=== PATIENT | male | born 1985 | race Caucasian/White ===

== ENCOUNTER 2017-06-23 05:47 | Day surgery (SDC) | payer OTHER ==
[~2017-06-23] VITALS: Ht 172.7 cm; Wt 88.8 kg
[2017-06-23 07:13] VITALS: Ht 172.7 cm; Wt 88.8 kg
[2017-06-23] MEDS ORDERED: HYDROCHLOROTHIAZIDE (07:16)
[2017-06-23] MEDS ORDERED: ZANTAC (07:16)
[2017-06-23] MEDS ORDERED: LISINOPRIL (07:16)
[2017-06-23 07:25] VITALS: BP 136/98; PULSE 84; RESP 19
--- NOTE | 2017-06-23 07:43 | OPPN ---
Date/Time of Note Date/Time of Note DATE: 06/23/17 TIME: 07:42 Operative Report Preoperative Diagnosis Abdominal pain Chronic heartburn Postoperative Diagnosis Gastroesophageal reflux disease Gastritis Residual food in the stomach making the exam inadequate Operation/Procedure Performed Esophagogastroduodenoscopy and biopsy Surgeon see signature line assistant shift supervisor None Anesthesia: moderate sedation Estimated blood loss: none Transfusion Required none Specimen Gastric mucosal biopsy Grafts/Implants none Complications none ALFREDITO GOODMAN MD Jun 23, 2017 07:43
[2017-06-23] MEDS ORDERED: FENTAnyl 50 MCG/ML VIAL ONE (07:52)
[2017-06-23] MEDS ORDERED: MIDAZOLAM 1 MG/ML 2 ML INJ ONE (07:52)
[2017-06-23 08:01] VITALS: BP 129/77; RESP 20
--- NOTE | 2017-06-23 11:15 | GILP ---
DATE OF PROCEDURE: NAME OF PROCEDURES: Esophagogastroduodenoscopy and biopsy. SURGEON: Kathryn Villalta MD PREOPERATIVE DIAGNOSES: 1. Abdominal pain. 2. Chronic heartburn. POSTOPERATIVE DIAGNOSES: 1. Gastroesophageal reflux disease. 2. Gastritis. 3. Residual food in the stomach, making the exam inadequate. 4. Gastric mucosal biopsies were taken for Helicobacter pylori test. INDICATION FOR THE PROCEDURE: Mr. Philip Grady is a 31-year-old male patient who had upper abdomin al pain and chronic heartburn, not responding to therapy, so the patient was scheduled for endoscopi c examination for further evaluation. The procedure and possible complications are well explained to the patient, he understood and consen ben to the procedure. DESCRIPTION OF PROCEDURE: Under the influence of fentanyl and Versed, the gastroscope was carefully introduced into the esophagus and under direct vision, it was advanced to the stomach. FINDINGS: ESOPHAGUS: The patient had gastroesophageal reflux disease. STOMACH: He had gastritis. The patient had residual food in the stomach, making the exam very inad equate. Gastric mucosal biopsies were taken for H. pylori test. Because of residual food in the st omach, the scope was not advanced into the duodenum. He tolerated the procedure very well and there was no complication from the procedure. At the end o f the procedures, he was awake with stable vital signs and he was discharged home to the care of his family. IMPRESSION: 1. Gastroesophageal reflux disease. 2. Gastritis. 3. Gastric mucosal biopsies were taken for Helicobacter pylori test. 4. Residual food in the stomach, making the exam very inadequate. PLAN: 1. Omeprazole 40 mg p.o. in the morning. 2. Await H. pylori test report. 3. The patient will need repeat endoscopy with fasting. Dictated By: KATHRYN MITCHELL/SERGIO Conf#: [id number] DID#: [id number]
--- NOTE | 2017-06-25 07:46 | CONS ---
DATE OF ADMISSION: DATE OF CONSULTATION: HISTORY OF PRESENT ILLNESS: I thank you very much for this kind referral. Mr. Heaven Alonso is a 31-year-old male patient who has been referred to me for further evaluation of upper abdominal pain and chronic heartburn not responding to therapy with Zantac. PAST MEDICAL HISTORY: There is no past history of peptic ulcer disease. Patient never had endoscopic examination in the past. He is not any nonsteroidal anti-inflammatory agents. There is no history of gallstones or liver disease. Patient had abdominal ultrasound and CT scan done and according to him, they were normal. There is no history of inflammatory bowel disease. He is hypertensive, not diabetic. No heart disease or lung problem. No kidney disease. He has history of hyperlipidemia. SOCIAL HISTORY: Nonsmoker. No alcohol abuse. FAMILY HISTORY: No family history of gastrointestinal tract neoplasm. ALLERGIES: NO DRUG ALLERGIES. MEDICATION: 1. Zantac. 2. Hydrochlorothiazide. 3. Lisinopril. PHYSICAL EXAMINATION: VITAL SIGNS: He is 5 feet 8 inches tall, weighs 193 pounds. CARDIAC: Normal heart sounds. LUNGS: Clear. ABDOMEN: Soft. No masses. Normal bowel sounds. NEUROLOGIC: Normal neurological exam. IMPRESSION: 1. Upper abdominal pain and chronic heartburn not responding to therapy. 2. Hypertension. 3. Hyperlipidemia. 4. According to the patient, he had abdominal CT scan and ultrasound done and they were normal. PLAN: Endoscopic examination for further evaluation. The procedure and possible complications were well explained to the patient. He understands and consents to the procedure. I thank you once again. With warmest personal regards, Patient Name: HEAVEN ALONSO Dictated By: MD PAULA Hilton/arlin/luis /Document#: [id number]
== END 2017-06-23 11:17 | disposition home or self-care (01) ==
LOC: GIL 05:47
PROVIDERS: ATTEND Internal Medicine Gastroenterology
DX: R10.10 Upper abdominal pain, unspecified (principal); K21.9 Gastro-esophageal reflux disease without esophagitis; I10 Essential (primary) hypertension; E78.5 Hyperlipidemia, unspecified; K29.70 Gastritis, unspecified, without bleeding
CPT/HCPCS: 87081; J2250; J3010

== ENCOUNTER 2017-07-01 11:51 | Day surgery (SDC) | payer OTHER ==
[~2017-07-01] VITALS: Ht 172.7 cm; Wt 86.6 kg
[~2017-07-01 11:51] MED LIST: HYDROCHLOROTHIAZIDE; LISINOPRIL; ZANTAC
[2017-07-01 13:01] VITALS: Ht 172.7 cm; Wt 86.6 kg
[2017-07-01 13:28] VITALS: BP 130/79; PULSE 73; RESP 11
[2017-07-01] MEDS ORDERED: MIDAZOLAM 1 MG/ML 2 ML INJ ONE ×2 (13:48)
[2017-07-01] MEDS ORDERED: FENTAnyl 50 MCG/ML VIAL ONE (13:48)
--- NOTE | 2017-07-01 13:49 | OPPN ---
Date/Time of Note Date/Time of Note DATE: 07/01/17 TIME: 13:48 Operative Report Preoperative Diagnosis Abdominal pain Chronic heartburn Postoperative Diagnosis Hiatal hernia Gastroesophageal reflux disease Gastritis with erosions Operation/Procedure Performed Esophagogastroduodenoscopy and biopsy Surgeon see signature line surgeon assistant None Anesthesia: moderate sedation Estimated blood loss: none Transfusion Required none Specimen Gastric mucosal biopsy Grafts/Implants none Complications none ALFREDITO GOODMAN MD Jul 01, 2017 13:49
--- NOTE | 2017-07-01 13:49 | OPPN ---
Date/Time of Note Date/Time of Note DATE: 07/01/17 TIME: 13:48 Operative Report Preoperative Diagnosis Abdominal pain Chronic heartburn Postoperative Diagnosis Hiatal hernia Gastroesophageal reflux disease Gastritis with erosions Operation/Procedure Performed Esophagogastroduodenoscopy and biopsy Surgeon see signature line assistant refinery operator None Anesthesia: moderate sedation Estimated blood loss: none Transfusion Required none Specimen Gastric mucosal biopsy Grafts/Implants none Complications none ALFREDITO GOODMAN MD Jul 01, 2017 13:49
--- NOTE | 2017-07-01 13:49 | OPPN ---
Date/Time of Note Date/Time of Note DATE: 07/01/17 TIME: 13:48 Operative Report Preoperative Diagnosis Abdominal pain Chronic heartburn Postoperative Diagnosis Hiatal hernia Gastroesophageal reflux disease Gastritis with erosions Operation/Procedure Performed Esophagogastroduodenoscopy and biopsy Surgeon see signature line patient services assistant None Anesthesia: moderate sedation Estimated blood loss: none Transfusion Required none Specimen Gastric mucosal biopsy Grafts/Implants none Complications none ALFREDITO GOODMAN MD Jul 01, 2017 13:49
[2017-07-01 14:12] VITALS: BP 130/70; RESP 14
--- NOTE | 2017-07-02 08:39 | GILP ---
DATE OF PROCEDURE: NAME OF PROCEDURES: Esophagogastroduodenoscopy and biopsy. SURGEON: Alfredito Villalta MD. PREOPERATIVE DIAGNOSES: 1. Abdominal pain. 2. Chronic heartburn. POSTOPERATIVE DIAGNOSES: 1. Hiatal hernia. 2. Gastroesophageal reflux disease. 3. Gastritis with erosions. 4. Gastric mucosal biopsies were taken for Helicobacter pylori test. INDICATION FOR THE PROCEDURE: Mr. Philip Grady is a 31-year-old male patient who had upper abdomin al pain and chronic heartburn not responding to therapy. The patient was scheduled for endoscopic e xamination for further evaluation. The procedure and possible complications were well explained to the patient. He understood and cons ented to the procedure. DESCRIPTION OF PROCEDURE: Under the influence of fentanyl and Versed, the gastroscope was carefully introduced into the esophagus, and under direct vision, it was advanced to the stomach and through the pylorus into the duodenal bulb and descending duodenum. FINDINGS: ESOPHAGUS: The patient had hiatal hernia and gastroesophageal reflux disease. STOMACH: He had gastritis with erosions. Gastric mucosal biopsies were taken for H. pylori test. DUODENUM: Normal. He tolerated the procedure very well and there was no complication from the procedure. At the end o f the procedure, he was awake with stable vital signs and he was discharged home to the care of his family. IMPRESSION: Please see postoperative diagnoses. PLAN: 1. Omeprazole 40 mg p.o. q.a.m. 2. Await H. pylori test report. Dictated By: ALFREDITO MITCHELL/SERGIO Conf#: [id number] DID#: [id number]
== END 2017-07-01 15:52 | disposition home or self-care (01) ==
LOC: GIL 11:51
PROVIDERS: ATTEND Internal Medicine Gastroenterology
DX: R12 Heartburn (principal); K21.9 Gastro-esophageal reflux disease without esophagitis; K29.60 Other gastritis without bleeding; K44.9 Diaphragmatic hernia without obstruction or gangrene; I10 Essential (primary) hypertension; E78.5 Hyperlipidemia, unspecified
CPT/HCPCS: 43239; 87081; J2250; J3010; Z7610

== ENCOUNTER 2017-08-04 10:48 | Day surgery (SDC) | payer OTHER ==
[2017-08-03 15:21] VITALS: BMI 29.7
[2017-08-04] VITALS (15 sets, daily range): BP systolic 127–153; BP diastolic 67–103; PULSE 70–96; RESP 16–21; Ht 172.7 cm; Wt 87.5 kg
[~2017-08-04] VITALS: Ht 172.7 cm; Wt 87.5 kg
[2017-08-04] MEDS ORDERED: FLUT1AER INHALATION (11:08)
[2017-08-04] MEDS ORDERED: RANI150T5 PO (11:09)
[2017-08-04] MEDS ORDERED: OMEG1CAP2 PO (11:10)
[2017-08-04] MEDS ORDERED: HYDR25TA6 PO (11:11)
[2017-08-04] MEDS ORDERED: LISI-313 PO (11:11)
[2017-08-04] MEDS ORDERED: OMEP40CA6 PO (11:12)
--- NOTE | 2017-08-04 12:23 | HPN ---
Date/Time of Note Date/Time of Note DATE: 08/04/17 TIME: 12:22 Interval H&P Admission Note Pt. seen H&P reviewed: No system changes ARCHIE SHEPHERD MD Aug 04, 2017 12:23
[2017-08-04] MEDS ORDERED: LIDOCAINE 1%/EPI 30 ML INJ ONE (12:24)
[2017-08-04] MEDS ORDERED: COCAINE 4% 4 ML TOP ONE ×2 (12:25→12:52)
[2017-08-04] MEDS ORDERED: ROCURONIUM 50 MG INJ ONE (12:37)
[2017-08-04] MEDS ORDERED: PROPOFOL 20 ML ONE (12:37)
[2017-08-04] MEDS ORDERED: METOCLOPRAMIDE 10 MG INJ ONE (12:38)
[2017-08-04] MEDS ORDERED: MIDAZOLAM 1 MG/ML 2 ML INJ ONE (12:38)
[2017-08-04] MEDS ORDERED: FENTAnyl 50 MCG/ML VIAL ONE (12:38)
[2017-08-04] MEDS ORDERED: ONDANSETRON 4 MG INJ ONE (12:38)
[2017-08-04] MEDS ORDERED: DIPHENHYDRAMINE 50 MG INJ IV PRN (13:00)
[2017-08-04] MEDS ORDERED: MEPERIDINE 25 MG INJ IV PRN (13:00)
[2017-08-04] MEDS ORDERED: ONDANSETRON 4 MG INJ IV PRN (13:00)
[2017-08-04] MEDS ORDERED: METOCLOPRAMIDE 10 MG INJ IV PRN (13:00)
[2017-08-04] MEDS ORDERED: HYDROmorphONE (0.2 MG/ML) 10ML SYG IV PRN ×2 (13:00)
[2017-08-04] MEDS ORDERED: OXYCODONE/ACETAMINOPHEN (5/325) TAB PO PRN ×2 (13:00)
[2017-08-04] MEDS ORDERED: BACITRACIN/POLYMYXIN 28.35 GM OINT TOP ONE (13:02)
[2017-08-04] MEDS ORDERED: NEOSTIGMINE 3 MG/3 ML SYRINGE ONE (13:04)
[2017-08-04] MEDS ORDERED: GLYCOPYRROLATE 1 MG INJ ONE (13:04)
--- NOTE | 2017-08-04 13:15 | OPR ---
Date/Time of Note Date/Time of Note DATE: 08/04/17 TIME: 13:13 Operative Report Procedure Date: Aug 04, 2017 Preoperative Diagnosis Epistaxis, deviated nasal septum. Postoperative Diagnosis Same Operation/Procedure Performed Septoplasty Surgeon Archie Laura Flight Line Service Attendant None Anesthesia Type: general Estimated Blood Loss: 10 - 50 ml's Transfusion none Specimen None Grafts/Implants none Complications none Pt Condition Post Procedure: stable Disposition: PACU Indications Recurrent bleeding. Procedure Description Description of procedure: The patient was identified in the holding area. We had a discussion to confirm understanding of all indications risks benefits alternatives and postoperative care associated with the operation. The patient signed informed consent was taken to the operating room. The patient was laid supine on the operating room table and general anesthesia was achieved without difficulty. The face was draped in sterile fashion and the nose was packed with 4% cocaine pledgets. The nasal septum was infiltrated with 5 cc of 1% lidocaine with epinephrine in the submucoperiosteal plane bilaterally. A left sided Jimmy incision was made and submucoperichondreal flaps were raised. The bony cartilaginous junction of the septum was identified and entered. A deviated segments of bone and cartilage were isolated. A double- action scissor was used to transect the bony deviated segment of the skull base after which a Nano forcep was used to resect deviated segment of bone and cartilage. Care was taken to avoid excess cartilaginous resection. The flaps were returned to normal position and anterior rhinoscopy reveals midline septum. At this point the right inferior turbinate was medialized with a [place] elevator. Septal flaps were secured with a 40 fast-absorbing gut whip stitch. The patient was awakened, extubated and taken to the PACU in stable condition. Complications: None. ARCHIE LAURA MD Aug 04, 2017 13:15
[2017-08-04] MEDS ORDERED: FAMOTIDINE 20 MG TAB ONE (13:25)
[2017-08-04] MEDS: HYDROmorphONE (0.2 MG/ML) 10ML SYG IV PRN ×3 (13:28→15:38)
[2017-08-04] MEDS ORDERED: FAMOTIDINE 20 MG TAB PO SCH (13:30)
[2017-08-04] MEDS ORDERED: HYDROCODONE/APAP (5/325) TAB PO PRN (13:30)
== END 2017-08-04 17:43 | disposition home or self-care (01) ==
LOC: SDS 10:48
PROVIDERS: ATTEND Otolaryngology
DX: J34.2 Deviated nasal septum (principal); I10 Essential (primary) hypertension; E78.5 Hyperlipidemia, unspecified
CPT/HCPCS: 30520; J1170; J2250; J2405; J2710; J2765; J3010; Z7512; Z7610

== ENCOUNTER 2017-08-04 17:51 | Inpatient (IN) | payer OTHER ==
[~2017-08-04] VITALS: Ht 172.7 cm; Wt 80.0 kg
[~2017-08-04 17:51] MED LIST changes: +FLUT1AER INHALATION; +HYDR25TA6 PO; +LISI-313 PO; +OMEG1CAP2 PO; +OMEP40CA6 PO; +RANI150T5 PO
[2017-08-04 18:29] LABS: BASOPHIL # 0.1 10^3/ul (0.0-0.1); BASOPHILS % 0.4 % (0.0-2.0); EOSINOPHILS % 0.1 % (0.0-7.0); HEMATOCRIT 43.5 % (42.0-52.0); HEMOGLOBIN 14.4 g/dl (14.0-18.0); LYMPHOCYTES # 1.6 10^3/ul (0.8-2.9); LYMPHOCYTES % 10.7 % (15.0-51.0); MEAN CORPUSCULAR HEMOGLOBIN 27.2 pg (29.0-33.0); MEAN CORPUSCULAR HGB CONC 33.1 g/dl (32.0-37.0); MEAN CORPUSCULAR VOLUME 82.2 fl (82.0-101.0); MEAN PLATELET VOLUME 9.8 fl (7.4-10.4); MONOCYTE # 0.9 10^3/ul (0.3-0.9); MONOCYTES % 6.1 % (0.0-11.0); NEUTROPHIL # 12.6 10^3/ul (1.6-7.5); PLATELET COUNT 217 10^3/UL (140-415); RED BLOOD COUNT 5.29 10^6/ul (4.70-6.10); RED CELL DISTRIBUTION WIDTH 12.9 % (11.5-14.5); WHITE BLOOD COUNT 15.4 10^3/ul (4.8-10.8)
[2017-08-04] MEDS ORDERED: HYDROmorphONE 1 MG/ML SYG IV STA ×2 (18:39→21:00)
[2017-08-04] MEDS ORDERED: ONDANSETRON 4 MG INJ IV STA (18:43)
[2017-08-04 18:47] LABS: CALCIUM 9.4 mg/dl (8.4-10.2); CREATININE 0.62 mg/dl (0.61-1.24); POTASSIUM 4.1 mmol/L (3.5-5.1)
--- NOTE | 2017-08-04 18:50 | RADRPT ---
PROCEDURE: CT Abdomen and Pelvis without contrast. CLINICAL INDICATION: Left lower quadrant abdominal pain. TECHNIQUE: CT scan of the abdomen and pelvis with contrast was performed on a multi-detector high- resolution CT scanner. Coronal and sagittal reformatted images were obtained from the axial source images. Images were reviewed on a high-resolution PACS workstation. The total exam CTDI equals 12.8 mGy and the total exam DLP equals 789.8 mGy-cm. DICOM images are available. One or more of the following dose reduction techniques were utilized: - Automated exposure control - Adjustment of the mA and/or kV according to patient size - Use of iterative reconstruction technique COMPARISON: None. FINDINGS: Lower Chest: There is no basilar consolidation or effusion. Mild bilateral subsegmental atelectasis in the lungs. The heart is within normal limits in size. Hepatobiliary: There is diffuse fatty infiltration of the liver. No focal hepatic lesions are identi fied. The gallbladder is present. There is no intrahepatic or extrahepatic biliary dilatation. Spleen: Unremarkable. Pancreas: There are inflammatory changes surrounding the tail of the pancreas. No pseudocyst is visu alized. Evaluation for necrosis is limited without intravenous contrast. There are adjacent mildly e nlarged lymph nodes versus splenules. Adrenal Glands: Unremarkable. Kidneys: Unremarkable. Bowel: No bowel obstruction. The bowel wall in the ascending colon appears hypodense, which may rep resent sequela of prior inflammatory disease. The appendix is unremarkable. Pelvic Organs: The prostate contains calcifications. Peritoneum/Mesentery: Unremarkable. No pathologically enlarged lymph nodes. Bones/Soft Tissues: Unremarkable. Other: N/A. IMPRESSION: 1. Inflammatory changes surrounding the tail of the pancreas consistent with pancreatitis. No pseudo cyst visualized. Evaluation for necrosis limited without intravenous contrast. 2. Hepatic steatosis. RPTAT:AAJJ Physician Tr Date Time Electronically viewed and signed by Physician Tr on 08/04/2017 18:50 QL/
[2017-08-04 20:00] LABS: ALBUMIN 4.3 g/dl (3.3-4.9); BILIRUBIN,INDIRECT 0.3 mg/dl (0-1.1); BILIRUBIN,TOTAL 0.3 mg/dl (0.2-1.3); TOTAL PROTEIN 7.6 g/dl (6.1-8.1)
[2017-08-04 20:11] VITALS: TEMP 97.8
[2017-08-04 20:47] LABS: ADD UMIC NO; UR ASCORBIC ACID NEGATIVE (NEGATIVE); UR BILIRUBIN (Dip) NEGATIVE (NEGATIVE); UR BLOOD (Dip) NEGATIVE (NEGATIVE); UR CLARITY CLEAR (CLEAR); UR COLOR YELLOW (YELLOW); UR GLUCOSE (Dip) NEGATIVE (NEGATIVE); UR KETONES (Dip) NEGATIVE (NEGATIVE); UR LEUKOCYTE ESTERASE (Dip) NEGATIVE Leu/ul (NEGATIVE); UR NITRITE (Dip) NEGATIVE (NEGATIVE); UR SPECIFIC GRAVITY (Dip) 1.019 (1.003-1.030); UR TOTAL PROTEIN (Dip) NEGATIVE (NEGATIVE); UR UROBILINOGEN (Dip) NEGATIVE (NEGATIVE)
[2017-08-04] MEDS ORDERED: DEXTROSE 5%-0.45% NACL 1,000 ML IV SCH (20:50)
[2017-08-04] MEDS ORDERED: ACETAMINOPHEN 325 MG TAB PO PRN ×2 (21:00→23:00)
[2017-08-04] MEDS ORDERED: ONDANSETRON 4 MG INJ IV PRN (21:00)
--- NOTE | 2017-08-04 22:32 | ERD ---
ER Documentation Chief Complaint Chief Complaint SENT FROM [facility] AFTER NOSE SX. PT C/O AP. HPI 32-year-old male with a history of hyperlipidemia and high cholesterol brought into the ER after he had same-day surgery for a nasal septum repair. When he woke up from his anesthesia, he had severe epigastric pain radiating to his left lower quadrant. He states the pain is a 10 out of 10, worse with inspiration, stabbing, constant. No associated vomiting but he does complain of nausea. His last bowel movement was today morning and it was normal without any blood. He denies any recent fevers or chills. No dysuria. ROS All systems reviewed and are negative except as per history of present illness. Medications Home Meds Reported Medications Omeprazole* (Omeprazole*) 40 Mg Capsule.dr, 40 MG PO DAILY, #30 CAP 08/04/17 Lisinopril* (Lisinopril*) 5 Mg Tablet, 5 MG PO DAILY, #30 TAB 08/04/17 Hydrochlorothiazide* (Hydrochlorothiazide*) 25 Mg Tab, 25 MG PO DAILY, #30 TAB 08/04/17 [place]-3 Acid Ethyl Esters (Lovaza) 1 Gm Capsule, 2 GM PO BID, CAP 08/04/17 Ranitidine Hcl* (Ranitidine Hcl*) 150 Mg Tablet, 150 MG PO Q12, #60 TAB 08/04/17 Fluticasone-Vilanterol (Breo Ellipta Inhaler) 100-25 Mcg/Actuation Aer.pow.ba, 1 PUFF INHALATION DAILY, #1 INHALER 08/04/17 Discontinued Reported Medications [Hydrochlorothiazide] No Conflict Check 06/23/17 [Lisinopril] No Conflict Check 06/23/17 [Zantac] No Conflict Check 06/23/17 Allergies Allergies: Coded Allergies: No Known Allergy (Unverified , 08/04/17) PMhx/Soc History of Surgery: Yes (LEFT MENISCUS SX) Anesthesia Reaction: No Hx Neurological Disorder: No Hx Respiratory Disorders: No Hx Cardiac Disorders: No Hx Psychiatric Problems: No Hx Miscellaneous Medical Probl: Yes (HIGH CHOLESTEROL) Hx Alcohol Use: No Hx Substance Use: No Hx Tobacco Use: No Smoking Status: Never smoker FmHx Family History: No diabetes Physical Exam Vitals Vital Signs Date Time Temp Pulse Resp B/P Pulse Ox O2 Delivery O2 Flow Rate FiO2 11/28/17 20:11 97.8 85 16 134/79 98 Room Air 08/04/17 17:55 98.4 91 16 128/64 94 Physical Exam Const: Nontoxic, no apparent distress, well-appearing Head: Atraumatic Eyes: Normal Conjunctiva ENT: Normal External Ears, Nose and Mouth. Neck: Full range of motion..~ No meningismus. Resp: Clear to auscultation bilaterally Cardio: Regular rate and rhythm, no murmurs Abd: Soft, mild left upper quadrant tenderness. Negative Robison sign. Moderate left lower quadrant tenderness. No rebound or guarding. Nondistended. Normal bowel sounds Skin: No petechiae or rashes Back: No midline or flank tenderness Ext: No cyanosis, or edema Neur: Awake and alert Psych: Normal Mood and Affect Result Diagram: 08/04/17181908/04/171819 Results 24 hrs Laboratory Tests Test 08/04/17 18:20 08/04/17 20:14 White Blood Count 15.410^3/ul Red Blood Count 5.2910^6/ul Hemoglobin 14.4g/dl Hematocrit 43.5% Mean Corpuscular Volume 82.2fl Mean Corpuscular Hemoglobin 27.2pg Mean Corpuscular Hemoglobin Concent 33.1g/dl Red Cell Distribution Width 12.9% Platelet Count 44403^3/UL Mean Platelet Volume 9.8fl Neutrophils % 82.0% Lymphocytes % 10.7% Monocytes % 6.1% Eosinophils % 0.1% Basophils % 0.4% Nucleated Red Blood Cells % 0.0/100WBC Neutrophils # 12.610^3/ul Lymphocytes # 1.610^3/ul Monocytes # 0.910^3/ul Eosinophils # 0.010^3/ul Basophils # 0.110^3/ul Nucleated Red Blood Cells # 0.010^3/ul Sodium Level 138mmol/L Potassium Level 4.1mmol/L Chloride Level 96mmol/L Carbon Dioxide Level 26mmol/L Anion Gap 20 Blood Urea Nitrogen 16mg/dl Creatinine 0.62mg/dl Glucose Level 108mg/dl Calcium Level 9.4mg/dl Total Bilirubin 0.3mg/dl Direct Bilirubin 0.00mg/dl Indirect Bilirubin 0.3mg/dl Aspartate Amino Transf (AST/SGOT) 31IU/L Alanine Aminotransferase (ALT/SGPT) 58IU/L Alkaline Phosphatase 92IU/L Total Protein 7.6g/dl Albumin 4.3g/dl Lipase 7268U/L Urine Color YELLOW Urine Clarity CLEAR Urine pH 7.0 Urine Specific [place] 1.019 Urine Ketones NEGATIVEmg/dL Urine Nitrite NEGATIVEmg/dL Urine Bilirubin NEGATIVEmg/dL Urine Urobilinogen NEGATIVEmg/dL Urine Leukocyte Esterase NEGATIVELeu/ul Urine Hemoglobin NEGATIVEmg/dL Urine Glucose NEGATIVEmg/dL Urine Total Protein NEGATIVEmg/dl Current Medications Medications (Trade) Dose Ordered Sig/Mike Route PRN Reason Start Time Stop Time Status Last Admin Dose Admin Hydromorphone HCl (Dilaudid) 1 mg ONCE STAT IV 08/04/17 18:39 08/04/17 18:40 DC 08/04/17 18:51 Ondansetron HCl 4 mg 4 mg ONCE STAT IV 08/04/17 18:43 08/04/17 18:44 DC 08/04/17 18:51 Dextrose/Sodium Chloride (D5-1/2ns) 1,000 ml @ 125 mls/hr Q8H IV 08/04/17 20:50 08/05/17 04:49 Ondansetron HCl (Zofran Inj) 4 mg BRIDGE ORDER PRN IV NAUSEA AND/OR VOMITING 08/04/17 21:00 08/04/17 22:56 DC 08/04/17 22:38 Acetaminophen (Tylenol Tab) 650 mg ER BRIDGE PRN PO MILD PAIN/FEVER 08/04/17 21:00 08/04/17 22:56 DC Hydromorphone HCl 1 mg 1 mg ONCE STAT IV 08/04/17 21:00 08/04/17 21:01 DC 08/04/17 21:11 Sodium Chloride (NS) 1,000 ml @ 200 mls/hr Q5H IV 08/04/17 22:36 IV Flush (NS 3 ml) 3 ml PER PROTOCOL IV 08/04/17 23:00 Ondansetron HCl (Zofran Inj) 4 mg Q6H PRN IV NAUSEA AND/OR VOMITING 08/04/17 23:00 Acetaminophen (Tylenol Tab) 650 mg Q6H PRN PO PAIN LEVEL 1-3 OR FEVER 08/04/17 23:00 Hydromorphone HCl (Dilaudid) 1 mg Q4H PRN IV SEVERE PAIN LEVEL 7-10 08/04/17 23:00 08/04/17 23:00 Docusate Sodium (Colace) 100 mg Q12H PRN PO CONSTIPATION 08/04/17 23:00 Bisacodyl (Dulcolax) 5 mg DAILY PRN PO CONSTIPATION 08/04/17 23:00 Pantoprazole (Protonix Iv) 40 mg DAILY@06 IV 08/05/17 06:00 Procedures/[facility] Labs CBC: leukocytosis CMP: No evidence of electrolyte abnormality, renal failure, hypoglycemia, liver failure, Or biliary obstruction Lipase: Elevated UA: no evidence of infection Imaging CT abdomen and pelvis without contrast shows evidence of acute pancreatitis with inflammation of the pancreatic tail, no other acute abnormalities noted by radiology. [facility] Patient is presenting with mostly left lower quadrant pain. His vitals are stable and he is afebrile. I have a low suspicion for acute surgical abdomen including bowel obstruction or perforation. Labs were done and were indicative of acute pancreatitis. CT also shows evidence of acute pancreatitis. I suspect this may be due to his untreated hypertriglyceridemia. I have a lower suspicion for gallstone pancreatitis. Low suspicion for aortic dissection, acute coronary syndrome, or acute pulmonary etiology. Patient was given IV fluids and multiple doses of antiemetics and analgesics IV with only mild improvement of his pain. I do not believe he is stable for discharge at this time and will require bowel rest and IV fluids until his symptoms improved. Accepting Care Team: Current data and ongoing care discussed. Time: Time of admission Primary Provider: Stephan Mukherjee Diagnosis: Primary Impression: Pancreatitis Chronicity: acute Pancreatitis type: unspecified pancreatitis type Acute pancreatitis complication: unspecified Qualified Code: K85.90 - Acute pancreatitis, unspecified complication status, unspecified pancreatitis type Condition: CHICO Martinez MD Aug 04, 2017 22:32
[2017-08-04] MEDS ORDERED: DOCUSATE SODIUM 100 MG CAP PO PRN (23:00)
[2017-08-04] MEDS ORDERED: NACL 0.9% 3 ML SYG IV SCH (23:00)
[2017-08-04] MEDS ORDERED: BISACODYL (EC) 5 MG TAB PO PRN (23:00)
[2017-08-04] MEDS ORDERED: HYDROmorphONE 1 MG/ML SYG IV PRN (23:00)
[2017-08-04] MEDS: SOD CHLORIDE 0.9% 1,000 ML IV SCH (23:57)
[2017-08-05 00:08] VITALS: BP 133/79; RESP 20
[2017-08-05 00:09] VITALS: Ht 172.7 cm; Wt 80.0 kg
[2017-08-05] MEDS ORDERED: HYDROmorphONE 2 MG/ML SYG IV PRN (01:00)
[2017-08-05 02:00] VITALS: BP 135/80; RESP 17
[2017-08-05] MEDS ORDERED: PANTOPRAZOLE 40 MG INJ ONE (04:53)
[2017-08-05] MEDS: SOD CHLORIDE 0.9% 1,000 ML IV SCH ×4 (05:33→18:55)
[2017-08-05] MEDS: HYDROmorphONE 2 MG/ML SYG IV PRN ×5 (05:34→18:09)
[2017-08-05] MEDS: PANTOPRAZOLE 40 MG INJ IV SCH (05:34)
[2017-08-05] MEDS: ONDANSETRON 4 MG INJ IV PRN ×3 (05:35→18:14)
[2017-08-05 06:30] LABS: BASOPHILS % 0.3 % (0.0-2.0); EOSINOPHILS % 0.1 % (0.0-7.0); HEMATOCRIT 43.7 % (42.0-52.0); HEMOGLOBIN 14.3 g/dl (14.0-18.0); LYMPHOCYTES # 1.3 10^3/ul (0.8-2.9); LYMPHOCYTES % 10.7 % (15.0-51.0); MEAN CORPUSCULAR HEMOGLOBIN 27.1 pg (29.0-33.0); MEAN CORPUSCULAR HGB CONC 32.7 g/dl (32.0-37.0); MEAN CORPUSCULAR VOLUME 82.9 fl (82.0-101.0); MEAN PLATELET VOLUME 10.2 fl (7.4-10.4); MONOCYTE # 0.9 10^3/ul (0.3-0.9); MONOCYTES % 7.5 % (0.0-11.0); NEUTROPHIL # 9.6 10^3/ul (1.6-7.5); NEUTROPHILS % 80.7 % (39.0-77.0); PLATELET COUNT 217 10^3/UL (140-415); RED BLOOD COUNT 5.27 10^6/ul (4.70-6.10); WHITE BLOOD COUNT 11.8 10^3/ul (4.8-10.8)
[2017-08-05 07:02] LABS: ALBUMIN/GLOBULIN RATIO 1.14; BILIRUBIN,INDIRECT 1.1 mg/dl (0-1.1); BILIRUBIN,TOTAL 1.1 mg/dl (0.2-1.3); CALCIUM 9.3 mg/dl (8.4-10.2); CHOL/HDL RATIO 7.9 RATIO; CREATININE 0.69 mg/dl (0.61-1.24); MAGNESIUM 1.6 mg/dl (1.7-2.5); TOTAL PROTEIN 7.5 g/dl (6.1-8.1)
[2017-08-05 07:31] LABS: THYROID STIMULATING HORMONE 0.94 MIU/L (0.465-4.680)
[2017-08-05 08:13] VITALS: BP 127/74; RESP 16
--- NOTE | 2017-08-05 08:52 | HP ---
Date/Time of Note Date/Time of Note DATE: 08/05/17 TIME: 08:44 Assessment/Plan VTE Prophylaxis VTE Prophylaxis Intervention: SCD's Lines/Catheters IV Catheter Type (from Rust): Peripheral IV Assessment/Plan Chief Complaint/Hosp Course This is a 32-year-old male being admitted to the [facility] floor for: #1 acute pancreatitis: Etiology unclear at this time however could be secondary to hypertriglyceridemia versus possible medication for general anesthesia such as propofol. At the current time will provide aggressive fluid hydration with normal saline at 200 cc an hour. Zofran for nausea. Will provide patient with Dilaudid as needed for pain control. Keep the patient n.p.o. for bowel rest. Will check lipid panel, A1c. Will need to find out in the a.m. regarding what medications patient received during his surgery. #2 nasal septoplasty: Patient is status post surgery. Continue current postop care. #3 Hypertension: Continue lisinopril #4 asthma: Continue home inhaler #5 gastritis: Continue PPI #6 DVT GI prophylaxis: SCDs, PPI Further treatment strategy will be implemented as per the clinical course Problems: HPI/ROS Admit Date/Time Admit Date/Time Aug 04, 2017 at 20:52 Hx of Present Illness Chief complaint: Abdominal pain This is a 12-slpn-tel-year-old male with a history of hypertriglyceridemia and high cholesterol brought into the ER after he had same-day surgery for a nasal septum repair. When he woke up from his anesthesia for septoplasty, he had severe epigastric pain radiating to his left lower quadrant. He states the pain is a 10 out of 10, worse with inspiration, stabbing, constant. No associated vomiting but he does complain of nausea. His last bowel movement was today morning and it was normal without any blood. He denies any recent fevers or chills. No dysuria. Of note his does state that occasionally she has noticed him complaining of abdominal pain sometimes occurs after eating food however this seems to be the most severe. There is apparently a family history of pancreatitis as well in his uncle. he is unsure which medication he was given for sedation. Allergies: NKDA Medications: See CLARISA ROS Const: As per HPI Eyes : No pain discharge or redness or change in visual acuity ENT: No pain, sore throat, congestion, congestion, dysphagia or discharge Respiratory: No shortness of breath, cough, sputum, wheezing, or pleuritic pain Cardiovascular: No chest pain, palpitation, PND, or edema GI : As per HPI Genitourinary: No dysuria, hematuria, flank pain , discharge or CVA tenderness Musculoskeletal: No joint pain, back pain, neck pain, restricted range of motion in neck or joints Skin: No rash, bruising or hives Neuro: No headache, dizziness, syncope, seizure, focal weakness Endocrine: No polyuria, polydipsia, temperature intolerance Psych: No hallucination, depression, anxiety or suicidal ideation PMH/Family/Social Past Medical History History of epistaxis, hyperlipidemia, hypertriglyceridemia, gastritis, hypertension, possible asthma Past Surgical History Nasal septoplasty, left torn meniscus repair Social History Alcohol Use: none Smoking Status: Former smoker Drug Use: none Exam/Review of Systems Vital Signs Vitals Vital Signs Date Time Temp Pulse Resp B/P Pulse Ox O2 Delivery O2 Flow Rate FiO2 08/05/17 08:13 97.7 87 16 127/74 93 08/04/17 20:11 Room Air Intake and Output 08/04/17 08/04/17 08/05/17 15:00 23:00 07:00 Intake Total 1000 ml Balance 1000 ml Exam Exam General: It is lying in bed in moderate distress from abdominal pain HEENT: Atraumatic, normocephalic. The pupils are equal, round and reactive. Extraocular motor are intact Neck: Supple with full range of motion. No rigidity or meningismus Chest: Nontender Lungs: Clear to auscultation bilaterally no crackles rales or wheezing Heart: Normal S1-S2, Regular rhythm and rate. No murmur, S3, or S4 Abdomen: Soft, tenderness to palpation at the epigastric region radiating down to the left lower quadrant, normal bowel sounds Extremities: Normal to inspection, no edema no cyanosis Neurologic: Normal mental status, speech normal, cranial nerves II through XII are intact, motor and sensory are intact, no focal weakness Additional Comments PROCEDURE: CT Abdomen and Pelvis without contrast. CLINICAL INDICATION: Left lower quadrant abdominal pain. TECHNIQUE: CT scan of the abdomen and pelvis with contrast was performed on a multi-detector high-resolution CT scanner. Coronal and sagittal reformatted images were obtained from the axial source images. Images were reviewed on a high-resolution PACS workstation. The total exam CTDI equals 12.8 mGy and the total exam DLP equals 789.8 mGy-cm. DICOM images are available. One or more of the following dose reduction techniques were utilized: - Automated exposure control - Adjustment of the mA and/or kV according to patient size - Use of iterative reconstruction technique COMPARISON: None. FINDINGS: Lower Chest: There is no basilar consolidation or effusion. Mild bilateral subsegmental atelectasis in the lungs. The heart is within normal limits in size. Hepatobiliary: There is diffuse fatty infiltration of the liver. No focal hepatic lesions are identified. The gallbladder is present. There is no intrahepatic or extrahepatic biliary dilatation. Spleen: Unremarkable. Pancreas: There are inflammatory changes surrounding the tail of the pancreas. No pseudocyst is visualized. Evaluation for necrosis is limited without intravenous contrast. There are adjacent mildly enlarged lymph nodes versus splenules. Adrenal Glands: Unremarkable. Kidneys: Unremarkable. Bowel: No bowel obstruction. The bowel wall in the ascending colon appears hypodense, which may represent sequela of prior inflammatory disease. The appendix is unremarkable. Pelvic Organs: The prostate contains calcifications. Peritoneum/Mesentery: Unremarkable. No pathologically enlarged lymph nodes. Bones/Soft Tissues: Unremarkable. Other: N/A. IMPRESSION: 1. Inflammatory changes surrounding the tail of the pancreas consistent with pancreatitis. No pseudocyst visualized. Evaluation for necrosis limited without intravenous contrast. 2. Hepatic steatosis. RPTAT:AAJJ Physician Tr Date Time Electronically viewed and signed by Physician Tr on 08/04/2017 18:50 QL/ CC: CHICO FERNANDES MD Labs Result Diagram: 08/05/17 0550 08/05/17 0550 Medications Medications Current Medications Sodium Chloride (NS) 1,000 ml @ 200 mls/hr Q5H IV Last administered on t 05:33; Admin Dose 200 MLS/HR; Start 08/04/17 at 22:36 Ondansetron HCl (Zofran Inj) 4 mg Q6H PRN IV NAUSEA AND/OR VOMITING Last administered on 08/05/17 05:35; Admin Dose 4 MG; Start 08/04/17 at 23:00 Acetaminophen (Tylenol Tab) 650 mg Q6H PRN PO PAIN LEVEL 1-3 OR FEVER; Start 08/04/17 at 23:00 Docusate Sodium (Colace) 100 mg Q12H PRN PO CONSTIPATION; Start 08/04/17 at 23 :00 Bisacodyl (Dulcolax) 5 mg DAILY PRN PO CONSTIPATION; Start 08/04/17 at 23:00 Pantoprazole (Protonix Iv) 40 mg DAILY@06 IV Last administered on 08/05/17 05 :34; Admin Dose 40 MG; Start 08/05/17 at 06:00 Hydromorphone HCl (Dilaudid) 1.5 mg Q3H PRN IV PAIN Last administered on 05:34; Admin Dose 1.5 MG; Start 08/05/17 at 01:00 ESTEFANIA WALLS Aug 05, 2017 08:52
[2017-08-05] MEDS ORDERED: NON-FORMULARY/PATIENT OWN MED (Omeprazole* 40 MG) PO SCH (09:00)
[2017-08-05] MEDS: LISINOPRIL 5 MG TAB PO SCH (09:00)
[2017-08-05] MEDS ORDERED: RANITIDINE 150 MG TAB PO SCH (09:00)
[2017-08-05] MEDS: HYDROCHLOROTHIAZIDE 25 MG TAB PO SCH (09:00)
[2017-08-05] MEDS: FISH OIL 1,000 MG CAP PO SCH ×2 (09:00→20:57)
[2017-08-05] MEDS ORDERED: NON-FORMULARY/PATIENT OWN MED (Fluticasone-Vilanterol (Breo Ellipta Inhaler) 1 PUFF) XX SCH (09:00)
[2017-08-05] MEDS ORDERED: [UNRECOGNIZED DRUG - REMARK] XX SCH (10:00)
[2017-08-05] MEDS ORDERED: MAGNESIUM SULFATE 2 GM/50 ML 50 ML IVPB ONE (12:00)
[2017-08-05] MEDS ORDERED: morphine 2 MG INJ IV PRN ×2 (13:00→17:00)
[2017-08-05 14:30] VITALS: BP 134/62; RESP 16
[2017-08-05] MEDS ORDERED: BARIUM SULF 2% 450 ML BTL (BERRY SMOOTHIE) PO ONE (17:00)
--- NOTE | 2017-08-05 18:07 | PN ---
Date/Time of Note Date/Time of Note DATE: 08/05/17 TIME: 17:57 Assessment/Plan VTE Prophylaxis VTE Prophylaxis Intervention: SCD's Lines/Catheters IV Catheter Type (from Nrsg): Peripheral IV Assessment/Plan Assessment/Plan 1. Acute pancreatitis - Etiology unknown at this time - Will need to review medications received during surgery by anesthesia to see if possibly contributed to pain - Patient has history of hyperTG and had 700 in the past. Lipid panel performed shows TG 400s which is unlikely to be causing pancreatitis - Patient has not consumed alcohol in 7 years as well - CT scan abdomen shows pancreatitis but no issues with gallbladder or CBD dilation. Will check CT abd/pelvis with contrast to rule out abscess or necrosis - Will keep NPO, IVF, and pain control - Recheck Lipase in am - If no improvement will consult GI for further assistance 2. s/p nasal septoplasty 08/04 - Continue current postop care. 3. Hypertension - BP stable - On lisinopril and hctz 4. asthma - Continue bronchodilator 5. gastritis - Continue PPI 6. Disposition - Continue monitoring in Med/Surg - Will try to advance diet tomorrow as tolerated Subjective 24 Hr Interval Summary Free Text/Dictation Patient experiencing significant epigastric pain that he states started after waking up from surgery yesterday. Has had GI issues in the past but was told was related to acid reflux Exam/Review of Systems Vital Signs Vitals Vital Signs Date Time Temp Pulse Resp B/P Pulse Ox O2 Delivery O2 Flow Rate FiO2 08/05/17 14:30 98.5 74 16 134/62 91 08/04/17 20:11 Room Air Intake and Output 08/04/17 08/04/17 08/05/17 15:00 23:00 07:00 Intake Total 1000 ml Balance 1000 ml Exam General: In moderate distress secondary to abdominal pain HEENT: Atraumatic, normocephalic. The pupils are equal, round and reactive. Extraocular motor are intact Neck: Supple with full range of motion. No rigidity or meningismus Lungs: Clear to auscultation bilaterally no crackles rales or wheezing Heart: Normal S1-S2, Regular rhythm and rate. No murmur, S3, or S4 Abdomen: soft, tenderness to palpation diffusely but worse in epigastric area and LLQ. No rebound or guarding. Extremities: Normal to inspection, no edema no cyanosis Neurologic: Normal mental status, speech normal, cranial nerves II through XII are intact, motor and sensory are intact, no focal weakness Results Result Diagram: 08/05/17 0550 08/05/17 0550 Results 24 hrs Laboratory Tests Test 08/04/17 18:20 08/04/17 20:14 08/05/17 05:50 White Blood Count 15.4 H 11.8 #H Red Blood Count 5.29 5.27 Hemoglobin 14.4 14.3 Hematocrit 43.5 43.7 Mean Corpuscular Volume 82.2 82.9 Mean Corpuscular Hemoglobin 27.2 L 27.1 L Mean Corpuscular Hemoglobin Concent 33.1 32.7 Red Cell Distribution Width 12.9 13.0 Platelet Count 217 217 Mean Platelet Volume 9.8 10.2 Neutrophils % 82.0 H 80.7 H Lymphocytes % 10.7 L 10.7 L Monocytes % 6.1 7.5 Eosinophils % 0.1 0.1 Basophils % 0.4 0.3 Nucleated Red Blood Cells % 0.0 0.0 Neutrophils # 12.6 H 9.6 H Lymphocytes # 1.6 1.3 Monocytes # 0.9 0.9 Eosinophils # 0.0 0.0 Basophils # 0.1 0.0 Nucleated Red Blood Cells # 0.0 0.0 Sodium Level 138 137 Potassium Level 4.1 4.0 Chloride Level 96 L 97 Carbon Dioxide Level 26 27 Anion Gap 20 H 17 H Blood Urea Nitrogen 16 18 Creatinine 0.62 0.69 Glucose Level 108 129 Calcium Level 9.4 9.3 Total Bilirubin 0.3 1.1 Direct Bilirubin 0.00 0.00 Indirect Bilirubin 0.3 1.1 Aspartate Amino Transf (AST/SGOT) 31 21 Alanine Aminotransferase (ALT/SGPT) 58 53 Alkaline Phosphatase 92 96 Total Protein 7.6 7.5 Albumin 4.3 4.0 Lipase 7268 H Urine Color YELLOW Urine Clarity CLEAR Urine pH 7.0 Urine Specific [place] 1.019 Urine Ketones NEGATIVE Urine Nitrite NEGATIVE Urine Bilirubin NEGATIVE Urine Urobilinogen NEGATIVE Urine Leukocyte Esterase NEGATIVE Urine Hemoglobin NEGATIVE Urine Glucose NEGATIVE Urine Total Protein NEGATIVE Hemoglobin A1c 5.6 Magnesium Level 1.6 L Globulin 3.50 H Albumin/Globulin Ratio 1.14 Triglycerides Level 437 H Cholesterol Level 239 H LDL Cholesterol, Calculated 122 HDL Cholesterol 30 Cholesterol/HDL Ratio 7.9 Thyroid Stimulating Hormone (TSH) 0.940 Medications Medications Current Medications Sodium Chloride (NS) 1,000 ml @ 200 mls/hr Q5H IV Last administered on 10:48; Admin Dose 200 MLS/HR; Start 08/04/17 at 22:36 Ondansetron HCl (Zofran Inj) 4 mg Q6H PRN IV NAUSEA AND/OR VOMITING Last administered on 08/05/17 11:31; Admin Dose 4 MG; Start 08/04/17 at 23:00 Acetaminophen (Tylenol Tab) 650 mg Q6H PRN PO PAIN LEVEL 1-3 OR FEVER; Start 08/04/17 at 23:00 Docusate Sodium (Colace) 100 mg Q12H PRN PO CONSTIPATION; Start 08/04/17 at 23 :00 Bisacodyl (Dulcolax) 5 mg DAILY PRN PO CONSTIPATION; Start 08/04/17 at 23:00 Pantoprazole (Protonix Iv) 40 mg DAILY@06 IV Last administered on 08/05/17 05 :34; Admin Dose 40 MG; Start 08/05/17 at 06:00 Hydrochlorothiazide (Hydrochlorothiazide) 25 mg DAILY PO ; Start 08/05/17 at 09 :00 Lisinopril (Zestril) 5 mg DAILY PO ; Start 08/05/17 at 09:00 Fish Oil (Fish Oil) 2,000 mg BID PO ; Start 08/05/17 at 09:00 Hydromorphone HCl (Dilaudid) 2 mg Q3H PRN IV PAIN 7-10; Start 08/05/17 at 16: 00 Morphine Sulfate (morphine) 4 mg Q4H PRN IV PAIN LEVEL 4-6; Start 08/05/17 at 17:00 Salmeterol Xinafoate/ Fluticasone (Advair 250/50 Diskus) 1 inh BID INH ; Start 08/05/17 at 21:00 MARISOL UPTON MD Aug 05, 2017 18:07
[2017-08-05 20:04] VITALS: BP 125/81; RESP 20
[2017-08-05] MEDS: SALMETEROL/FLUTICASONE 250/50 INHA INH SCH (20:56)
[2017-08-05] MEDS ORDERED: SOD CHLORIDE 0.9% 100 ML ONE (21:15)
[2017-08-05] MEDS ORDERED: IOHEXOL 300MG/ML 150 ML BTL ONE (21:15)
[2017-08-06] MEDS: HYDROmorphONE 2 MG/ML SYG IV PRN ×8 (00:04→22:56)
[2017-08-06] MEDS: SOD CHLORIDE 0.9% 1,000 ML IV SCH ×5 (01:17→21:03)
[2017-08-06 01:56] VITALS: BP 132/81; RESP 20
[2017-08-06] MEDS: PANTOPRAZOLE 40 MG INJ IV SCH (05:18)
[2017-08-06 06:54] LABS: BASOPHILS % 0.2 % (0.0-2.0); EOSINOPHILS % 0.4 % (0.0-7.0); HEMATOCRIT 40.4 % (42.0-52.0); HEMOGLOBIN 13.2 g/dl (14.0-18.0); LYMPHOCYTES # 1.3 10^3/ul (0.8-2.9); LYMPHOCYTES % 12.7 % (15.0-51.0); MEAN CORPUSCULAR HEMOGLOBIN 27.7 pg (29.0-33.0); MEAN CORPUSCULAR HGB CONC 32.7 g/dl (32.0-37.0); MEAN CORPUSCULAR VOLUME 84.7 fl (82.0-101.0); MEAN PLATELET VOLUME 10.3 fl (7.4-10.4); MONOCYTE # 0.8 10^3/ul (0.3-0.9); MONOCYTES % 7.7 % (0.0-11.0); NEUTROPHIL # 8.3 10^3/ul (1.6-7.5); NEUTROPHILS % 78.3 % (39.0-77.0); PLATELET COUNT 178 10^3/UL (140-415); RED BLOOD COUNT 4.77 10^6/ul (4.70-6.10); RED CELL DISTRIBUTION WIDTH 13.3 % (11.5-14.5); WHITE BLOOD COUNT 10.6 10^3/ul (4.8-10.8)
[2017-08-06 07:15] LABS: ALBUMIN 3.7 g/dl (3.3-4.9); ALBUMIN/GLOBULIN RATIO 1.15; BILIRUBIN,INDIRECT 1.2 mg/dl (0-1.1); BILIRUBIN,TOTAL 1.2 mg/dl (0.2-1.3); CALCIUM 8.9 mg/dl (8.4-10.2); CREATININE 0.69 mg/dl (0.61-1.24); POTASSIUM 4.6 mmol/L (3.5-5.1); TOTAL PROTEIN 6.9 g/dl (6.1-8.1)
[2017-08-06 07:30] VITALS: BP 128/78; RESP 20
[2017-08-06] MEDS: ONDANSETRON 4 MG INJ IV PRN ×2 (07:40→18:41)
--- NOTE | 2017-08-06 08:27 | RADRPT ---
PROCEDURE: CT abdomen and pelvis without contrast. CLINICAL INDICATION: Pancreatitis. TECHNIQUE: CT scan of the abdomen and pelvis without contrast was performed without and with intra venous contrast. 3-D coronal reformatted images were obtained from the axial source images. Contrast: 100 cc [id number]. DICOM images are available. One or more of the following dose reduction techniques were used: - Automated exposure control. - Adjustment of the mA and/or kV according to patient size. - Use of iterative reconstruction technique. COMPARISON: None. FINDINGS: CT abdomen: There is dependent left lower lobe subsegmental atelectasis and a trace pleural effusion. The heart size is normal, without pericardial thickening or effusion. There is diffuse fatty infiltration of the liver with scattered areas of focal fatty sparing. The l iver is enlarged measuring 23 cm in long dimension. The spleen is normal in size and homogeneous in density. The stomach is mildly distended and large amounts of oral contrast. The distal pancreatic body and tail are slightly enlarged. There is diffuse ksenia pancreatic inflammatory change which extends to th e splenic hilum, the left anterior and posterior pararenal spaces , the left paracolic gutter and th e posterior gastric fundus and body. The findings are consistent with acute pancreatitis. There is n o evidence of pancreatic necrosis, hemorrhage, pseudocyst or abscess. Small amount of ascites presen t within the right left paracolic gutters. Increased attenuation within the gallbladder may represent sludge and/or small stones. The common bi le duct is mildly dilated measuring 9 mm in transverse dimension. There is no intrahepatic biliary d uctal dilatation. The adrenal glands are symmetric and normal. The kidneys are symmetrically unrem arkable as well. No renal calculus or obstructive uropathy or mass lesion is seen. The aorta is of normal caliber. There is no retroperitoneal lymphadenopathy. The sherice hepatis reg ion is clear. The bowel and mesentery, as visualized, are equally unremarkable. CT pelvis: The small bowel loops situated within the pelvis are unremarkable. The pelvic organs are normal. T he pelvic sidewalls and inguinal regions are clear. The sigmoid colon and rectum are all unremarkab le. No aggressive appearing osteolytic or osteoblastic lesions are present. There is partial sacralizati on of the left half of the L5 vertebral body with a pseudoarthrosis between the left L5 transverse p rocess and the sacrum. IMPRESSION: 1. Acute moderate pancreatitis without pancreatic hemorrhage, necrosis, pseudocyst, abscess, or morris inable fluid collection. 2. Diffuse inflammatory changes within the peripancreatic mesentery, the left anterior and posterio r pararenal spaces, the left paracolic gutter, and posterior to the gastric fundus and body. 3. Increased attenuation within the gallbladder representing sludge and/or small stones. The common bile duct is mildly dilated measuring 9 mm. Recommend further evaluation with ultrasound. 4. Trace ascites. 5. Small left-sided pleural effusion with left lower lobe atelectasis. 6. Partially sacralized left L5 vertebral body with a pseudoarthrosis between the left L5 transvers e process and the sacrum. Call results: The results of this examination were called by this radiologist to [facility] and discussed with Indica at 08:23 a.m. 08/06/2017. RPTAT: HRSR Physician Vidya Date Time Electronically viewed and signed by Physician Vidya on 08/06/2017 08:26 RR/
[2017-08-06] MEDS: HYDROCHLOROTHIAZIDE 25 MG TAB PO SCH ×2 (09:00→10:10)
[2017-08-06] MEDS: LISINOPRIL 5 MG TAB PO SCH ×2 (09:00→10:10)
[2017-08-06] MEDS: FISH OIL 1,000 MG CAP PO SCH ×3 (09:00→21:12)
[2017-08-06] MEDS: SALMETEROL/FLUTICASONE 250/50 INHA INH SCH ×2 (09:49→21:03)
--- NOTE | 2017-08-06 11:33 | PN ---
Date/Time of Note Date/Time of Note DATE: 08/06/17 TIME: 11:33 Assessment/Plan VTE Prophylaxis VTE Prophylaxis Intervention: SCD's Lines/Catheters IV Catheter Type (from Nrsg): Peripheral IV Assessment/Plan Assessment/Plan 1. Acute pancreatitis secondary to hyperTG versus possible biliary obstruction - GI consultation placed an appreciated recommendations. MRCP ordered due to findings of CBD dilation and gallbladder sludge/stones on CT scan - Patient has history of hyperTG and had 700 in the past. Lipid panel performed shows TG 400s which is unlikely to be causing pancreatitis - Patient has not consumed alcohol in 7 years as well - CT abd shows "Diffuse inflammatory changes within the peripancreatic mesentery , the left anterior and posterior pararenal spaces, the left paracolic gutter, and posterior to the gastric fundus and body. Increased attenuation within the gallbladder representing sludge and/or small stones. The common bile duct is mildly dilated measuring 9 mm" - Will keep NPO, IVF, and pain control - Lipase trending downward 2. s/p nasal septoplasty 08/04 - Continue current postop care. 3. Hypertension - BP stable - On lisinopril and hctz 4. asthma - Continue bronchodilator 5. gastritis - Continue PPI 6. Disposition - Continue monitoring in Med/Surg - awaiting MRCP Subjective 24 Hr Interval Summary Free Text/Dictation Patient states pain is still present but improved since yesterday. Getting relief with pain medications but does feel like 20 minutes prior to medication being due he has worsening pain. No acute overnight events. Exam/Review of Systems Vital Signs Vitals Vital Signs Date Time Temp Pulse Resp B/P Pulse Ox O2 Delivery O2 Flow Rate FiO2 08/06/17 07:30 98.2 84 20 128/78 95 08/04/17 20:11 Room Air Intake and Output 08/05/17 08/05/17 08/06/17 15:00 23:00 07:00 Intake Total 1050 ml 1000 ml 2000 ml Balance 1050 ml 1000 ml 2000 ml Exam General: appears more comfortable compared to yesterday, awake and alert HEENT: Atraumatic, normocephalic. Pupils are equal, round and reactive. Extraocular motor are intact. dressing over nares with no drainage Neck: Supple with full range of motion Lungs: Clear to auscultation bilaterally no crackles rales or wheezing Heart: Normal S1-S2, Regular rhythm and rate. No murmur, S3, or S4 Abdomen: soft, tenderness to palpation diffusely but worse in epigastric area. No rebound or guarding. Extremities: Normal to inspection, no edema no cyanosis Neurologic: Normal mental status, speech normal, cranial nerves II through XII are intact, motor and sensory are intact, no focal weakness Results Result Diagram: 08/06/17 0508/06/17 05 Results 24 hrs Laboratory Tests Test 08/06/17 05:29 White Blood Count 10.6 Red Blood Count 4.77 Hemoglobin 13.2 L Hematocrit 40.4 L Mean Corpuscular Volume 84.7 Mean Corpuscular Hemoglobin 27.7 L Mean Corpuscular Hemoglobin Concent 32.7 Red Cell Distribution Width 13.3 Platelet Count 178 Mean Platelet Volume 10.3 Neutrophils % 78.3 H Lymphocytes % 12.7 L Monocytes % 7.7 Eosinophils % 0.4 Basophils % 0.2 Nucleated Red Blood Cells % 0.0 Neutrophils # 8.3 H Lymphocytes # 1.3 Monocytes # 0.8 Eosinophils # 0.0 Basophils # 0.0 Nucleated Red Blood Cells # 0.0 Sodium Level 137 Potassium Level 4.6 Chloride Level 100 Carbon Dioxide Level 29 Anion Gap 13 Blood Urea Nitrogen 10 Creatinine 0.69 Glucose Level 101 Calcium Level 8.9 Magnesium Level 2.0 Total Bilirubin 1.2 Direct Bilirubin 0.00 Indirect Bilirubin 1.2 H Aspartate Amino Transf (AST/SGOT) 20 Alanine Aminotransferase (ALT/SGPT) 47 Alkaline Phosphatase 88 Total Protein 6.9 Albumin 3.7 Globulin 3.20 Albumin/Globulin Ratio 1.15 Lipase 860 H Medications Medications Current Medications Sodium Chloride (NS) 1,000 ml @ 200 mls/hr Q5H IV Last administered on 06:49; Admin Dose 200 MLS/HR; Start 08/04/17 at 22:36 Ondansetron HCl (Zofran Inj) 4 mg Q6H PRN IV NAUSEA AND/OR VOMITING Last administered on 08/06/17 07:40; Admin Dose 4 MG; Start 08/04/17 at 23:00 Acetaminophen (Tylenol Tab) 650 mg Q6H PRN PO PAIN LEVEL 1-3 OR FEVER; Start 08/04/17 at 23:00 Docusate Sodium (Colace) 100 mg Q12H PRN PO CONSTIPATION; Start 08/04/17 at 23 :00 Bisacodyl (Dulcolax) 5 mg DAILY PRN PO CONSTIPATION; Start 08/04/17 at 23:00 Pantoprazole (Protonix Iv) 40 mg DAILY@06 IV Last administered on 08/06/17 05 :18; Admin Dose 40 MG; Start 08/05/17 at 06:00 Hydrochlorothiazide (Hydrochlorothiazide) 25 mg DAILY PO Last administered on 08/06/17 10:10; Admin Dose 25 MG; Start 08/05/17 at 09:00 Lisinopril (Zestril) 5 mg DAILY PO Last administered on 08/06/17 10:10; Admin Dose 5 MG; Start 08/05/17 at 09:00 Fish Oil (Fish Oil) 2,000 mg BID PO ; Start 08/05/17 at 09:00 Hydromorphone HCl (Dilaudid) 2 mg Q3H PRN IV PAIN 7-10 Last administered on 10:38; Admin Dose 2 MG; Start 08/05/17 at 16:00 Morphine Sulfate (morphine) 4 mg Q4H PRN IV PAIN LEVEL 4-6 Last administered on 08/05/17 20:52; Admin Dose 4 MG; Start 08/05/17 at 17:00 Salmeterol Xinafoate/ Fluticasone (Advair 250/50 Diskus) 1 inh BID INH Last administered on 08/06/17 09:49; Admin Dose 1 INH; Start 08/05/17 at 21:00 MARISOL UPTON MD Aug 06, 2017 11:33
[2017-08-06] MEDS: metroNIDAZOLE 500 MG/NS (PMX) 100 ML IVPB SCH ×2 (12:09→18:28)
[2017-08-06] MEDS ORDERED: hydrALAzine 20 MG INJ IV PRN (12:30)
[2017-08-06] MEDS: CIPROFLOXACIN 400MG/D5W 200 ML IVPB SCH ×2 (13:12→21:03)
[2017-08-06 14:00] VITALS: BP 135/85; RESP 20
--- NOTE | 2017-08-06 14:50 | CONS ---
Date/Time of Note Date/Time of Note DATE: 08/06/17 TIME: 14:10 Assessment/Plan Assessment/Plan Chief Complaint/Hosp Course Assessment: Acute pancreatitis Secondary to hypertriglyceridemia versus possible biliary obstruction Gastritis Chronic abdominal pain and diarrhea Status post nasal septoplasty Hypertension Hypertension Asthma Plan: Ordered MRCP to rule out biliary obstruction Continue IV hydration N.p.o. for bowel rest Pain management regimen Patient will need colonoscopy inpatient or outpatient Consultation was performed in collaboration with Dr. Birch PHYSICAL EXAMINATION: GENERAL: Well developed, well nourished, alert & oriented x 3, in no acute distress SKIN: No lesions, no stigmata chronic liver disease, no evidence of bleeding diathesis LYMPHATIC: No palpable lymphadenopathy. HEAD: Normocephalic, atraumatic, no tenderness. EYES: Pupils equal reactive to light and accommodation, full extraocular movements, sclera clear, non-icteric, no discharge. EARS/NOSE AND THROAT: Ears normal, nose normal, oropharynx normal, oral membranes well hydrated without lesions. NECK: Supple, no masses, thyroid normal, JVP within normal limits, carotids normal without bruits. CHEST: Inspection within normal limits. CARDIOVASCULAR: Heart: Regular rate and rhythm, no murmurs, gallops or rubs. Peripheral pulses present within normal limits, no cyanosis, clubbing or edemas. No pulsatile abdominal mass RESPIRATORY: Lungs clear to auscultation and percussion, no wheezing, no rubs GASTROINTESTINAL AND LIVER: Abdomen: Soft, severe tenderness in epigastric and left upper and lower quadrant, non-distended, no hernias, no masses, no organomegaly, no ascites, no rebound tenderness, normoactive bowel sounds. Rectal: Deferred. GENITOURINARY: [Male genitalia within normal limits. EXTREMITIES: No cyanosis, clubbing or edema. Problems: Consultation Date/Type/Reason Admit Date/Time Aug 04, 2017 at 20:52 Date of Consultation: Aug 06, 2017 Reason for Consultation GI Hx of Present Illness This is a 32-year-old male admitted through ER after same day nasal septoplasty with severe epigastric pain radiating to the left lower quadrant associated with nausea. Patient denies vomiting, hematemesis, hematochezia, or fever. Patient reports having chronic abdominal pain and diarrhea after each meal. Patient had an EGD for symptoms of gastritis 1 month ago. Was recommended to have colonoscopy for abdominal pain and diarrhea. Gastrointestinal: other (See HPI), pain (The gastric pain) Past Medical History Medical History: high cholesterol Past Surgical History Past Surgical Hx: other (Nasal septoplasty, knee arthroscopy) Family History Significant Family History: no pertinent family hx, diabetes (Father), hypertension (Father and mother), other (Mother: Dyslipidemia and hypothyroidism ) Social History Alcohol Use: none Smoking Status: Former smoker Drug Use: none Exam/Review of Systems Vital Signs Vitals Vital Signs Date Time Temp Pulse Resp B/P Pulse Ox O2 Delivery O2 Flow Rate FiO2 08/06/17 07:30 98.2 84 20 128/78 95 08/04/17 20:11 Room Air Intake and Output 08/05/17 08/05/17 08/06/17 15:00 23:00 07:00 Intake Total 1050 ml 1000 ml 2000 ml Balance 1050 ml 1000 ml 2000 ml Exam Gastrointestinal: nl liver, spleen, tender (Epigastric area, radiating to left lower quadrant ) Results Result Diagram: 08/06/17 0529 08/06/17 0529 Results 24 hrs Laboratory Tests Test 08/06/17 05:29 White Blood Count 10.6 Red Blood Count 4.77 Hemoglobin 13.2 L Hematocrit 40.4 L Mean Corpuscular Volume 84.7 Mean Corpuscular Hemoglobin 27.7 L Mean Corpuscular Hemoglobin Concent 32.7 Red Cell Distribution Width 13.3 Platelet Count 178 Mean Platelet Volume 10.3 Neutrophils % 78.3 H Lymphocytes % 12.7 L Monocytes % 7.7 Eosinophils % 0.4 Basophils % 0.2 Nucleated Red Blood Cells % 0.0 Neutrophils # 8.3 H Lymphocytes # 1.3 Monocytes # 0.8 Eosinophils # 0.0 Basophils # 0.0 Nucleated Red Blood Cells # 0.0 Sodium Level 137 Potassium Level 4.6 Chloride Level 100 Carbon Dioxide Level 29 Anion Gap 13 Blood Urea Nitrogen 10 Creatinine 0.69 Glucose Level 101 Calcium Level 8.9 Magnesium Level 2.0 Total Bilirubin 1.2 Direct Bilirubin 0.00 Indirect Bilirubin 1.2 H Aspartate Amino Transf (AST/SGOT) 20 Alanine Aminotransferase (ALT/SGPT) 47 Alkaline Phosphatase 88 Total Protein 6.9 Albumin 3.7 Globulin 3.20 Albumin/Globulin Ratio 1.15 Lipase 860 H Medications Medications Current Medications Sodium Chloride (NS) 1,000 ml @ 200 mls/hr Q5H IV Last administered on 12:08; Admin Dose 200 MLS/HR; Start 08/04/17 at 22:36 Ondansetron HCl (Zofran Inj) 4 mg Q6H PRN IV NAUSEA AND/OR VOMITING Last administered on 08/06/17 07:40; Admin Dose 4 MG; Start 08/04/17 at 23:00 Acetaminophen (Tylenol Tab) 650 mg Q6H PRN PO PAIN LEVEL 1-3 OR FEVER; Start 08/04/17 at 23:00 Docusate Sodium (Colace) 100 mg Q12H PRN PO CONSTIPATION; Start 08/04/17 at 23 :00 Bisacodyl (Dulcolax) 5 mg DAILY PRN PO CONSTIPATION; Start 08/04/17 at 23:00 Pantoprazole (Protonix Iv) 40 mg DAILY@06 IV Last administered on 08/06/17 05 :18; Admin Dose 40 MG; Start 08/05/17 at 06:00 Hydrochlorothiazide (Hydrochlorothiazide) 25 mg DAILY PO Last administered on 08/06/17 10:10; Admin Dose 25 MG; Start 08/05/17 at 09:00; Status Future Hold Lisinopril (Zestril) 5 mg DAILY PO Last administered on 08/06/17 10:10; Admin Dose 5 MG; Start 08/05/17 at 09:00 Fish Oil (Fish Oil) 2,000 mg BID PO ; Start 08/05/17 at 09:00 Hydromorphone HCl (Dilaudid) 2 mg Q3H PRN IV PAIN 7-10 Last administered on 13:28; Admin Dose 2 MG; Start 08/05/17 at 16:00 Morphine Sulfate (morphine) 4 mg Q4H PRN IV PAIN LEVEL 4-6 Last administered on 08/05/17 20:52; Admin Dose 4 MG; Start 08/05/17 at 17:00 Salmeterol Xinafoate/ Fluticasone 1 inh 1 inh BID INH Last administered on 09:49; Admin Dose 1 INH; Start 08/05/17 at 21:00 Ciprofloxacin/ Dextrose 200 ml @ 200 mls/hr Q12 IVPB Last administered on 13:12; Admin Dose 200 MLS/HR; Start 08/06/17 at 12:00 Metronidazole (Flagyl 500 Mg (Pmx)) 100 ml @ 100 mls/hr Q6 IVPB Last administered on 08/06/17t 12:09; Admin Dose 100 MLS/HR; Start 08/06/17 at 12: 00 Hydralazine HCl (Apresoline) 10 mg Q6H PRN IV SBP >160; Start 08/06/17 at 12: 30 Copies To: CC: RACHEL BIRCH MD, ANASTASIA NP Aug 06, 2017 14:21
[2017-08-06 20:00] VITALS: BP 136/76; RESP 20
[2017-08-07] MEDS ORDERED: HYDROmorphONE 1 MG/ML SYG IV ONE (00:04)
[2017-08-07] MEDS: METOCLOPRAMIDE 10 MG INJ IV SCH ×5 (00:11→22:58)
[2017-08-07] MEDS: metroNIDAZOLE 500 MG/NS (PMX) 100 ML IVPB SCH ×5 (00:11→22:58)
[2017-08-07 02:00] VITALS: BP 122/71; RESP 20
[2017-08-07] MEDS: PANTOPRAZOLE 40 MG INJ IV SCH (04:27)
[2017-08-07] MEDS: SOD CHLORIDE 0.9% 1,000 ML IV SCH ×5 (04:27→16:05)
[2017-08-07] MEDS: HYDROmorphONE 2 MG/ML SYG IV PRN ×7 (04:36→22:58)
[2017-08-07 06:05] LABS: BASOPHILS % 0.2 % (0.0-2.0); EOSINOPHILS # 0.1 10^3/ul (0.0-0.5); HEMATOCRIT 39.4 % (42.0-52.0); HEMOGLOBIN 13.1 g/dl (14.0-18.0); LYMPHOCYTES # 1.2 10^3/ul (0.8-2.9); LYMPHOCYTES % 13.5 % (15.0-51.0); MEAN CORPUSCULAR HEMOGLOBIN 27.6 pg (29.0-33.0); MEAN CORPUSCULAR HGB CONC 33.2 g/dl (32.0-37.0); MEAN CORPUSCULAR VOLUME 83.1 fl (82.0-101.0); MEAN PLATELET VOLUME 10.1 fl (7.4-10.4); MONOCYTE # 0.8 10^3/ul (0.3-0.9); NEUTROPHIL # 6.8 10^3/ul (1.6-7.5); NEUTROPHILS % 75.7 % (39.0-77.0); PLATELET COUNT 177 10^3/UL (140-415); RED BLOOD COUNT 4.74 10^6/ul (4.70-6.10)
[2017-08-07 06:32] LABS: ALBUMIN/GLOBULIN RATIO 1.21; BILIRUBIN,INDIRECT 1.3 mg/dl (0-1.1); BILIRUBIN,TOTAL 1.3 mg/dl (0.2-1.3); CALCIUM 9.1 mg/dl (8.4-10.2); CREATININE 0.72 mg/dl (0.61-1.24); MAGNESIUM 1.9 mg/dl (1.7-2.5); POTASSIUM 4.4 mmol/L (3.5-5.1); TOTAL PROTEIN 7.3 g/dl (6.1-8.1)
[2017-08-07 07:53] VITALS: BP 117/70; RESP 19
[2017-08-07] MEDS: LISINOPRIL 5 MG TAB PO SCH (08:40)
[2017-08-07] MEDS: CIPROFLOXACIN 400MG/D5W 200 ML IVPB SCH ×2 (08:40→20:16)
[2017-08-07] MEDS: SALMETEROL/FLUTICASONE 250/50 INHA INH SCH ×2 (08:40→20:16)
--- NOTE | 2017-08-07 09:51 | PN ---
Date/Time of Note Date/Time of Note DATE: 08/07/17 TIME: 09:49 Assessment/Plan VTE Prophylaxis VTE Prophylaxis Intervention: SCD's Lines/Catheters IV Catheter Type (from Nrsg): Peripheral IV Assessment/Plan Chief Complaint/Hosp Course Assessment: Acute pancreatitis Secondary to hypertriglyceridemia versus possible biliary obstruction Gastritis Chronic abdominal pain and diarrhea Status post nasal septoplasty Hypertension Hypertension Asthma Plan: MRCP- pending Further recommendation with results of MRCP Continue IV hydration Maintain NPO status Pain management Patient seen in collaboration with Dr. Birch Subjective: Course reviewed with nursing staff Patient interviewed and examined All labs, imaging and other results reviewed The patient not in the room at time of evaluation, GI to reassess tomorrow PHYSICAL EXAMINATION: Deferred as patient is not in the room Problems: Exam/Review of Systems Vital Signs Vitals Vital Signs Date Time Temp Pulse Resp B/P Pulse Ox O2 Delivery O2 Flow Rate FiO2 08/07/17 07:53 98.7 93 19 117/70 96 08/04/17 20:11 Room Air Intake and Output 08/06/17 08/06/17 08/07/17 15:00 23:00 07:00 Intake Total 1300 ml 1300 ml 1300 ml Output Total 1200 ml Balance 1300 ml 100 ml 1300 ml Results Result Diagram: 08/07/17 0445 08/07/17 0445 Results 24 hrs Laboratory Tests Test 08/07/17 04:45 White Blood Count 9.0 Red Blood Count 4.74 Hemoglobin 13.1 L Hematocrit 39.4 L Mean Corpuscular Volume 83.1 Mean Corpuscular Hemoglobin 27.6 L Mean Corpuscular Hemoglobin Concent 33.2 Red Cell Distribution Width 13.0 Platelet Count 177 Mean Platelet Volume 10.1 Neutrophils % 75.7 Lymphocytes % 13.5 L Monocytes % 9.0 Eosinophils % 1.0 Basophils % 0.2 Nucleated Red Blood Cells % 0.0 Neutrophils # 6.8 Lymphocytes # 1.2 Monocytes # 0.8 Eosinophils # 0.1 Basophils # 0.0 Nucleated Red Blood Cells # 0.0 Sodium Level 136 Potassium Level 4.4 Chloride Level 96 L Carbon Dioxide Level 28 Anion Gap 16 Blood Urea Nitrogen 11 Creatinine 0.72 Glucose Level 96 Calcium Level 9.1 Magnesium Level 1.9 Total Bilirubin 1.3 Direct Bilirubin 0.00 Indirect Bilirubin 1.3 H Aspartate Amino Transf (AST/SGOT) 61 #H Alanine Aminotransferase (ALT/SGPT) 80 H Alkaline Phosphatase 99 Total Protein 7.3 Albumin 4.0 Globulin 3.30 H Albumin/Globulin Ratio 1.21 Medications Medications Current Medications Sodium Chloride (NS) 1,000 ml @ 200 mls/hr Q5H IV Last administered on 04:27; Admin Dose 200 MLS/HR; Start 08/04/17 at 22:36 Ondansetron HCl (Zofran Inj) 4 mg Q6H PRN IV NAUSEA AND/OR VOMITING Last administered on 08/06/17 18:41; Admin Dose 4 MG; Start 08/04/17 at 23:00 Acetaminophen (Tylenol Tab) 650 mg Q6H PRN PO PAIN LEVEL 1-3 OR FEVER; Start 08/04/17 at 23:00 Docusate Sodium (Colace) 100 mg Q12H PRN PO CONSTIPATION; Start 08/04/17 at 23 :00 Bisacodyl (Dulcolax) 5 mg DAILY PRN PO CONSTIPATION Last administered on 19:53; Admin Dose 5 MG; Start 08/04/17 at 23:00 Pantoprazole (Protonix Iv) 40 mg DAILY@06 IV Last administered on 08/07/17 04: 27; Admin Dose 40 MG; Start 08/05/17 at 06:00 Hydrochlorothiazide (Hydrochlorothiazide) 25 mg DAILY PO Last administered on 08/06/17 10:10; Admin Dose 25 MG; Start 08/05/17 at 09:00; Status Future Hold Lisinopril (Zestril) 5 mg DAILY PO Last administered on 08/07/17 08:40; Admin Dose 5 MG; Start 08/05/17 at 09:00 Fish Oil (Fish Oil) 2,000 mg BID PO ; Start 08/05/17 at 09:00 Hydromorphone HCl (Dilaudid) 2 mg Q3H PRN IV PAIN 7-10 Last administered on 07:51; Admin Dose 2 MG; Start 08/05/17 at 16:00 Morphine Sulfate (morphine) 4 mg Q4H PRN IV PAIN LEVEL 4-6 Last administered on 08/05/17 20:52; Admin Dose 4 MG; Start 08/05/17 at 17:00 Salmeterol Xinafoate/ Fluticasone 1 inh 1 inh BID INH Last administered on 08/07 08:40; Admin Dose 1 INH; Start 08/05/17 at 21:00 Ciprofloxacin/ Dextrose 200 ml @ 200 mls/hr Q12 IVPB Last administered on 08/07 08:40; Admin Dose 200 MLS/HR; Start 08/06/17 at 12:00 Metronidazole (Flagyl 500 Mg (Pmx)) 100 ml @ 100 mls/hr Q6 IVPB Last administered on 08/07/17 04:27; Admin Dose 100 MLS/HR; Start 08/06/17 at 12:00 Hydralazine HCl (Apresoline) 10 mg Q6H PRN IV SBP >160; Start 08/06/17 at 12: 30 Metoclopramide HCl (Reglan) 10 mg Q6 IV Last administered on 08/07/17 04:27; Admin Dose 10 MG; Start 08/07/17 at 00:00 TAMMY MONSON Aug 07, 2017 09:51
--- NOTE | 2017-08-07 10:42 | RADRPT ---
PROCEDURE: MR Abdomen and MRCP. CLINICAL INDICATION: Rule out biliary obstruction TECHNIQUE: MRI abdomen without contrast and MRCP was performed on a high-resolution high field [facility]. 3-D coronal rotating MIP images of the biliary tree are available for review. COMPARISON: CT 08/05/2017 FINDINGS: MRI Abdomen: Hepatic morphology is within limits. No gross T2 signal abnormalities. The spleen is unremarkable. There is a irregular appearance of the borders of the tail of the pancre as with mild adjacent fat stranding, consistent with acute pancreatitis. The pancreatic duct otherwi se appears to be within normal limits. Fluid is noted within the left pararenal space and within the left paracolic gutter. Both adrenal glands are within limits. Both kidneys are in normal anatomic position. No evidence of obstruction or hydronephrosis. The visualized GI tract demonstrate normal caliber loops of small and large bowel. No evidence of kane wel obstruction. The aorta is within limits. There is no significant retroperitoneal lymphadenopathy. Normal homogeneous marrow signal is identified. Spinal canal is within normal limits. MRCP: Gallbladder is mildly prominent and there is distension of the right and left main and common hepati c duct as well as the common bile duct measuring up to 1.1 cm. However, no gross abnormal filling de fects are identified. No evidence of abnormal strictures. The cystic duct appears to be within bernardino l limits. Pancreatic duct is within normal limits. IMPRESSION: 1. Dilatation of the right and left main hepatic biliary ducts, common hepatic duct and common bile duct measuring up to 1.1 cm. However, no gross abnormal filling defects. 2. No gross MR evidence of gallstones. No evidence of gallbladder inflammatory changes. 3. Inflammatory changes surrounding the tail of the pancreas with ill-defined borders and small amou nt of fluid within the left upper quadrant and surrounding the left pararenal space and left paracol ic gutter. Findings are consistent with acute pancreatitis. No gross focal fluid collections noted a t this time. RPTAT: [facility] Physician Zaira Date Time Electronically viewed and signed by Physician Zaira on 08/07/2017 10:42 JL/
--- NOTE | 2017-08-07 11:58 | PN ---
Date/Time of Note Date/Time of Note DATE: 08/07/17 TIME: 11:58 Assessment/Plan VTE Prophylaxis VTE Prophylaxis Intervention: SCD's Lines/Catheters IV Catheter Type (from Nrsg): Peripheral IV Assessment/Plan Assessment/Plan 1. Acute pancreatitis secondary to hyperTG versus possible biliary obstruction - GI consultation placed an appreciated recommendations. MRCP shows acute pancreatitis and dilation or right and left main hepatic ducts, CBD, and common hepatic duct up to 1.1 cm. GI made aware - Patient has history of hyperTG and had 700 in the past. Lipid panel performed shows TG 400s which is unlikely to be causing pancreatitis - Patient has not consumed alcohol in 7 years as well - CT abd shows "Diffuse inflammatory changes within the peripancreatic mesentery , the left anterior and posterior pararenal spaces, the left paracolic gutter, and posterior to the gastric fundus and body. Increased attenuation within the gallbladder representing sludge and/or small stones. The common bile duct is mildly dilated measuring 9 mm" - IVF and pain control. Will try clear liquid diet although patient not hungry - Lipase trending downward 2. s/p nasal septoplasty 08/04 - Continue current postop care. 3. Hypertension - BP stable - holding PO medications - PRN for now 4. asthma - Continue bronchodilator 5. gastritis - Continue PPI 6. Disposition - Continue monitoring in Med/Surg - awaiting GI input after MRCP Subjective 24 Hr Interval Summary Free Text/Dictation Patient still experiencing epigastric pain and LLQ discomfort as well. No new complaints and no acute overnight events. MRCP performed today. Exam/Review of Systems Vital Signs Vitals Vital Signs Date Time Temp Pulse Resp B/P Pulse Ox O2 Delivery O2 Flow Rate FiO2 08/07/17 07:53 98.7 93 19 117/70 96 08/04/17 20:11 Room Air Intake and Output 08/06/17 08/06/17 08/07/17 15:00 23:00 07:00 Intake Total 1300 ml 1300 ml 1300 ml Output Total 1200 ml Balance 1300 ml 100 ml 1300 ml Exam General: resting comfortably but still experiencing pain with movement HEENT: NC/AT, PERRL, neck supple Neck: Supple with full range of motion Lungs: Clear to auscultation bilaterally no crackles rales or wheezing Heart: Normal S1-S2, Regular rhythm and rate. No murmur, S3, or S4 Abdomen: soft, tenderness to palpation epigastric and LLQ. No rebound or guarding. Extremities: Normal to inspection, no edema no cyanosis Neurologic: Normal mental status, speech normal, cranial nerves II through XII are intact, motor and sensory are intact, no focal weakness Results Result Diagram: 08/07/175 08/07/17444 Results 24 hrs Laboratory Tests Test 08/07/17 04:45 White Blood Count 9.0 Red Blood Count 4.74 Hemoglobin 13.1 L Hematocrit 39.4 L Mean Corpuscular Volume 83.1 Mean Corpuscular Hemoglobin 27.6 L Mean Corpuscular Hemoglobin Concent 33.2 Red Cell Distribution Width 13.0 Platelet Count 177 Mean Platelet Volume 10.1 Neutrophils % 75.7 Lymphocytes % 13.5 L Monocytes % 9.0 Eosinophils % 1.0 Basophils % 0.2 Nucleated Red Blood Cells % 0.0 Neutrophils # 6.8 Lymphocytes # 1.2 Monocytes # 0.8 Eosinophils # 0.1 Basophils # 0.0 Nucleated Red Blood Cells # 0.0 Sodium Level 136 Potassium Level 4.4 Chloride Level 96 L Carbon Dioxide Level 28 Anion Gap 16 Blood Urea Nitrogen 11 Creatinine 0.72 Glucose Level 96 Calcium Level 9.1 Magnesium Level 1.9 Total Bilirubin 1.3 Direct Bilirubin 0.00 Indirect Bilirubin 1.3 H Aspartate Amino Transf (AST/SGOT) 61 #H Alanine Aminotransferase (ALT/SGPT) 80 H Alkaline Phosphatase 99 Total Protein 7.3 Albumin 4.0 Globulin 3.30 H Albumin/Globulin Ratio 1.21 Medications Medications Current Medications Sodium Chloride (NS) 1,000 ml @ 200 mls/hr Q5H IV Last administered on 04:27; Admin Dose 200 MLS/HR; Start 08/04/17 at 22:36 Ondansetron HCl (Zofran Inj) 4 mg Q6H PRN IV NAUSEA AND/OR VOMITING Last administered on 08/06/17 18:41; Admin Dose 4 MG; Start 08/04/17 at 23:00 Acetaminophen (Tylenol Tab) 650 mg Q6H PRN PO PAIN LEVEL 1-3 OR FEVER; Start 08/04/17 at 23:00 Docusate Sodium (Colace) 100 mg Q12H PRN PO CONSTIPATION; Start 08/04/17 at 23 :00 Bisacodyl (Dulcolax) 5 mg DAILY PRN PO CONSTIPATION Last administered on 19:53; Admin Dose 5 MG; Start 08/04/17 at 23:00 Pantoprazole (Protonix Iv) 40 mg DAILY@06 IV Last administered on 08/07/17 04: 27; Admin Dose 40 MG; Start 08/05/17 at 06:00 Hydrochlorothiazide (Hydrochlorothiazide) 25 mg DAILY PO Last administered on 08/06/17 10:10; Admin Dose 25 MG; Start 08/05/17 at 09:00; Status Future Hold Lisinopril (Zestril) 5 mg DAILY PO Last administered on 08/07/17 08:40; Admin Dose 5 MG; Start 08/05/17 at 09:00 Fish Oil (Fish Oil) 2,000 mg BID PO ; Start 08/05/17 at 09:00 Hydromorphone HCl (Dilaudid) 2 mg Q3H PRN IV PAIN 7-10 Last administered on 11:00; Admin Dose 2 MG; Start 08/05/17 at 16:00 Morphine Sulfate (morphine) 4 mg Q4H PRN IV PAIN LEVEL 4-6 Last administered on 08/05/17 20:52; Admin Dose 4 MG; Start 08/05/17 at 17:00 Salmeterol Xinafoate/ Fluticasone 1 inh 1 inh BID INH Last administered on 08/07 08:40; Admin Dose 1 INH; Start 08/05/17 at 21:00 Ciprofloxacin/ Dextrose 200 ml @ 200 mls/hr Q12 IVPB Last administered on 08/07 08:40; Admin Dose 200 MLS/HR; Start 08/06/17 at 12:00 Metronidazole (Flagyl 500 Mg (Pmx)) 100 ml @ 100 mls/hr Q6 IVPB Last administered on 08/07/17 11:35; Admin Dose 100 MLS/HR; Start 08/06/17 at 12:00 Hydralazine HCl (Apresoline) 10 mg Q6H PRN IV SBP >160; Start 08/06/17 at 12: 30 Metoclopramide HCl (Reglan) 10 mg Q6 IV Last administered on 08/07/17 11:35; Admin Dose 10 MG; Start 08/07/17 at 00:00 MARISOL UPTON MD Aug 07, 2017 11:58
[2017-08-07 14:32] VITALS: BP 129/82; RESP 17
[2017-08-07 20:00] VITALS: BP 124/82; PULSE 92; RESP 20
[2017-08-07] MEDS: FISH OIL 1,000 MG CAP PO SCH (20:16)
[2017-08-07] MEDS: ONDANSETRON 4 MG INJ IV PRN (20:16)
[2017-08-08] MEDS: SOD CHLORIDE 0.9% 1,000 ML IV SCH ×5 (00:45→18:04)
[2017-08-08 03:00] VITALS: BP 119/75; RESP 16
[2017-08-08] MEDS: ONDANSETRON 4 MG INJ IV PRN ×3 (03:01→14:43)
[2017-08-08] MEDS: HYDROmorphONE 2 MG/ML SYG IV PRN ×7 (03:01→21:12)
[2017-08-08 05:18] LABS: BASOPHILS % 0.4 % (0.0-2.0); EOSINOPHILS # 0.2 10^3/ul (0.0-0.5); EOSINOPHILS % 2.1 % (0.0-7.0); HEMATOCRIT 39.2 % (42.0-52.0); LYMPHOCYTES % 14.1 % (15.0-51.0); MEAN CORPUSCULAR HEMOGLOBIN 27.4 pg (29.0-33.0); MEAN CORPUSCULAR HGB CONC 33.2 g/dl (32.0-37.0); MEAN CORPUSCULAR VOLUME 82.5 fl (82.0-101.0); MEAN PLATELET VOLUME 10.1 fl (7.4-10.4); MONOCYTE # 0.6 10^3/ul (0.3-0.9); MONOCYTES % 8.9 % (0.0-11.0); NEUTROPHIL # 5.2 10^3/ul (1.6-7.5); NEUTROPHILS % 73.8 % (39.0-77.0); PLATELET COUNT 180 10^3/UL (140-415); RED BLOOD COUNT 4.75 10^6/ul (4.70-6.10); RED CELL DISTRIBUTION WIDTH 12.9 % (11.5-14.5); WHITE BLOOD COUNT 7.1 10^3/ul (4.8-10.8)
[2017-08-08] MEDS: metroNIDAZOLE 500 MG/NS (PMX) 100 ML IVPB SCH ×4 (05:28→23:46)
[2017-08-08] MEDS: PANTOPRAZOLE 40 MG INJ IV SCH (05:28)
[2017-08-08] MEDS: METOCLOPRAMIDE 10 MG INJ IV SCH ×4 (05:28→23:46)
[2017-08-08 06:01] LABS: ALBUMIN 3.6 g/dl (3.3-4.9); ALBUMIN/GLOBULIN RATIO 0.94; BILIRUBIN,INDIRECT 1.1 mg/dl (0-1.1); BILIRUBIN,TOTAL 1.1 mg/dl (0.2-1.3); CALCIUM 9.2 mg/dl (8.4-10.2); CREATININE 0.62 mg/dl (0.61-1.24); MAGNESIUM 1.9 mg/dl (1.7-2.5); POTASSIUM 4.3 mmol/L (3.5-5.1); TOTAL PROTEIN 7.4 g/dl (6.1-8.1)
[2017-08-08 08:00] VITALS: BP 119/60; RESP 18
[2017-08-08] MEDS: LISINOPRIL 5 MG TAB PO SCH (08:09)
[2017-08-08] MEDS: SALMETEROL/FLUTICASONE 250/50 INHA INH SCH ×2 (08:09→20:40)
[2017-08-08] MEDS: FISH OIL 1,000 MG CAP PO SCH ×2 (08:09→20:40)
[2017-08-08] MEDS: CIPROFLOXACIN 400MG/D5W 200 ML IVPB SCH ×2 (08:09→20:40)
--- NOTE | 2017-08-08 11:30 | PN ---
Date/Time of Note Date/Time of Note DATE: 08/08/17 TIME: 11:30 Assessment/Plan VTE Prophylaxis VTE Prophylaxis Intervention: SCD's Lines/Catheters IV Catheter Type (from Nrsg): Peripheral IV Assessment/Plan Assessment/Plan 1. Acute pancreatitis secondary to hyperTG versus possible biliary obstruction - GI consultation placed an appreciated recommendations. MRCP shows acute pancreatitis and dilation or right and left main hepatic ducts, CBD, and common hepatic duct up to 1.1 cm. GI aware and spoke with about plan of care. Would like pancreatitis to resolve prior to any procedure - Patient has history of hyperTG and had 700 in the past. Lipid panel performed shows TG 400s which is unlikely to be causing pancreatitis - Patient has not consumed alcohol in 7 years as well - CT abd shows "Diffuse inflammatory changes within the peripancreatic mesentery , the left anterior and posterior pararenal spaces, the left paracolic gutter, and posterior to the gastric fundus and body. Increased attenuation within the gallbladder representing sludge and/or small stones. The common bile duct is mildly dilated measuring 9 mm" - IVF and pain control. Not tolerating diet but will keep on clears and advance as tolerated - Lipase trending downward. will check lipase level in am 2. s/p nasal septoplasty 08/04 - Continue current postop care. 3. Hypertension - BP stable - holding PO medications - PRN for now 4. asthma - Continue bronchodilator 5. gastritis - Continue PPI 6. Disposition - Continue monitoring in Med/Surg - awaiting input from GI Subjective 24 Hr Interval Summary Free Text/Dictation Patient still complaining of pain in epigastric area and feels as if it is bandlike radiating around left side. Unable to tolerate liquids still and no BM. States abdomen is soft when laying in bed and stiffens when he is standing Exam/Review of Systems Vital Signs Vitals Vital Signs Date Time Temp Pulse Resp B/P Pulse Ox O2 Delivery O2 Flow Rate FiO2 08/08/17 08:00 98.0 83 18 119/60 95 08/07/17 20:00 Room Air Intake and Output 08/07/17 08/07/17 08/08/17 14:59 22:59 06:59 Intake Total 300 ml 1845 ml 2400 ml Output Total 3 ml Balance 300 ml 1845 ml 2397 ml Exam General: resting comfortably, awake and alert. in no acute distress, appears more comfortable HEENT: NC/AT, PERRL, neck supple Neck: Supple with full range of motion Lungs: Clear to auscultation bilaterally no crackles rales or wheezing Heart: Normal S1-S2, Regular rhythm and rate. No murmur, S3, or S4 Abdomen: soft, tenderness to palpation epigastric. No rebound or guarding. Extremities: Normal to inspection, no edema no cyanosis Neurologic: Normal mental status, speech normal, cranial nerves II through XII are intact, motor and sensory are intact, no focal weakness Results Result Diagram: 08/08/1744108/08/17441 Results 24 hrs Laboratory Tests Test 08/08/17 04:42 White Blood Count 7.1 # Red Blood Count 4.75 Hemoglobin 13.0 L Hematocrit 39.2 L Mean Corpuscular Volume 82.5 Mean Corpuscular Hemoglobin 27.4 L Mean Corpuscular Hemoglobin Concent 33.2 Red Cell Distribution Width 12.9 Platelet Count 180 Mean Platelet Volume 10.1 Neutrophils % 73.8 Lymphocytes % 14.1 L Monocytes % 8.9 Eosinophils % 2.1 Basophils % 0.4 Nucleated Red Blood Cells % 0.0 Neutrophils # 5.2 Lymphocytes # 1.0 Monocytes # 0.6 Eosinophils # 0.2 Basophils # 0.0 Nucleated Red Blood Cells # 0.0 Sodium Level 137 Potassium Level 4.3 Chloride Level 98 Carbon Dioxide Level 27 Anion Gap 16 Blood Urea Nitrogen 9 Creatinine 0.62 Glucose Level 98 Calcium Level 9.2 Magnesium Level 1.9 Total Bilirubin 1.1 Direct Bilirubin 0.00 Indirect Bilirubin 1.1 Aspartate Amino Transf (AST/SGOT) 117 #H Alanine Aminotransferase (ALT/SGPT) 148 H Alkaline Phosphatase 107 Total Protein 7.4 Albumin 3.6 Globulin 3.80 H Albumin/Globulin Ratio 0.94 Medications Medications Current Medications Sodium Chloride (NS) 1,000 ml @ 200 mls/hr Q5H IV Last administered on 06:04; Admin Dose 200 MLS/HR; Start 08/04/17 at 22:36 Ondansetron HCl (Zofran Inj) 4 mg Q6H PRN IV NAUSEA AND/OR VOMITING Last administered on 08/08/17 08:56; Admin Dose 4 MG; Start 08/04/17 at 23:00 Acetaminophen (Tylenol Tab) 650 mg Q6H PRN PO PAIN LEVEL 1-3 OR FEVER; Start 08/04/17 at 23:00 Docusate Sodium (Colace) 100 mg Q12H PRN PO CONSTIPATION; Start 08/04/17 at 23 :00 Bisacodyl (Dulcolax) 5 mg DAILY PRN PO CONSTIPATION Last administered on 19:53; Admin Dose 5 MG; Start 08/04/17 at 23:00 Pantoprazole (Protonix Iv) 40 mg DAILY@06 IV Last administered on 08/08/17 05: 28; Admin Dose 40 MG; Start 08/05/17 at 06:00 Hydrochlorothiazide (Hydrochlorothiazide) 25 mg DAILY PO Last administered on 08/06/17 10:10; Admin Dose 25 MG; Start 08/05/17 at 09:00; Status Future Hold Lisinopril (Zestril) 5 mg DAILY PO Last administered on 08/08/17 08:09; Admin Dose 5 MG; Start 08/05/17 at 09:00 Fish Oil (Fish Oil) 2,000 mg BID PO Last administered on 08/08/17 08:09; Admin Dose 2,000 MG; Start 08/05/17 at 09:00 Hydromorphone HCl (Dilaudid) 2 mg Q3H PRN IV PAIN 7-10 Last administered on 08:56; Admin Dose 2 MG; Start 08/05/17 at 16:00 Morphine Sulfate (morphine) 4 mg Q4H PRN IV PAIN LEVEL 4-6 Last administered on 08/05/17 20:52; Admin Dose 4 MG; Start 08/05/17 at 17:00 Salmeterol Xinafoate/ Fluticasone 1 inh 1 inh BID INH Last administered on 08/08 08:09; Admin Dose 1 INH; Start 08/05/17 at 21:00 Ciprofloxacin/ Dextrose 200 ml @ 200 mls/hr Q12 IVPB Last administered on 08/08 08:09; Admin Dose 200 MLS/HR; Start 08/06/17 at 12:00 Metronidazole (Flagyl 500 Mg (Pmx)) 100 ml @ 100 mls/hr Q6 IVPB Last administered on 08/08/17 05:28; Admin Dose 100 MLS/HR; Start 08/06/17 at 12:00 Hydralazine HCl (Apresoline) 10 mg Q6H PRN IV SBP >160; Start 08/06/17 at 12: 30 Metoclopramide HCl (Reglan) 10 mg Q6 IV Last administered on 08/08/17t 05:28; Admin Dose 10 MG; Start 08/07/17 at 00:00 MARISOL UPTON MD Aug 08, 2017 11:30
[2017-08-08 14:00] VITALS: BP 127/75; RESP 17
[2017-08-08 20:00] VITALS: BP 132/85; RESP 18
[2017-08-09 02:00] VITALS: BP 130/80; RESP 19
[2017-08-09] MEDS: SOD CHLORIDE 0.9% 1,000 ML IV SCH ×4 (02:02→23:40)
[2017-08-09] MEDS: ONDANSETRON 4 MG INJ IV PRN (04:46)
[2017-08-09] MEDS: HYDROmorphONE 2 MG/ML SYG IV PRN ×5 (04:50→23:46)
[2017-08-09 05:35] LABS: BASOPHILS % 0.3 % (0.0-2.0); EOSINOPHILS # 0.2 10^3/ul (0.0-0.5); EOSINOPHILS % 1.7 % (0.0-7.0); HEMATOCRIT 40.8 % (42.0-52.0); HEMOGLOBIN 13.7 g/dl (14.0-18.0); LYMPHOCYTES % 11.7 % (15.0-51.0); MEAN CORPUSCULAR HEMOGLOBIN 27.5 pg (29.0-33.0); MEAN CORPUSCULAR HGB CONC 33.6 g/dl (32.0-37.0); MEAN CORPUSCULAR VOLUME 81.9 fl (82.0-101.0); MONOCYTE # 0.7 10^3/ul (0.3-0.9); MONOCYTES % 8.5 % (0.0-11.0); NEUTROPHIL # 6.7 10^3/ul (1.6-7.5); NEUTROPHILS % 77.1 % (39.0-77.0); PLATELET COUNT 213 10^3/UL (140-415); RED BLOOD COUNT 4.98 10^6/ul (4.70-6.10); RED CELL DISTRIBUTION WIDTH 12.6 % (11.5-14.5); WHITE BLOOD COUNT 8.7 10^3/ul (4.8-10.8)
[2017-08-09 06:09] LABS: ALBUMIN/GLOBULIN RATIO 1.17; BILIRUBIN,INDIRECT 0.7 mg/dl (0-1.1); BILIRUBIN,TOTAL 0.7 mg/dl (0.2-1.3); CALCIUM 9.3 mg/dl (8.4-10.2); CREATININE 0.64 mg/dl (0.61-1.24); MAGNESIUM 1.9 mg/dl (1.7-2.5); POTASSIUM 4.3 mmol/L (3.5-5.1); TOTAL PROTEIN 7.4 g/dl (6.1-8.1)
[2017-08-09] MEDS: PANTOPRAZOLE 40 MG INJ IV SCH (06:41)
[2017-08-09] MEDS: metroNIDAZOLE 500 MG/NS (PMX) 100 ML IVPB SCH ×4 (06:41→23:38)
[2017-08-09] MEDS: METOCLOPRAMIDE 10 MG INJ IV SCH ×4 (06:41→23:38)
[2017-08-09] MEDS: SALMETEROL/FLUTICASONE 250/50 INHA INH SCH ×2 (08:34→20:54)
[2017-08-09] MEDS: CIPROFLOXACIN 400MG/D5W 200 ML IVPB SCH ×2 (08:34→20:55)
[2017-08-09 08:40] VITALS: BP 131/87; RESP 18
[2017-08-09] MEDS: LISINOPRIL 5 MG TAB PO SCH (09:00)
[2017-08-09] MEDS: FISH OIL 1,000 MG CAP PO SCH ×2 (09:00→20:55)
--- NOTE | 2017-08-09 09:51 | PN ---
Date/Time of Note Date/Time of Note DATE: 08/09/17 TIME: 09:35 Assessment/Plan VTE Prophylaxis VTE Prophylaxis Intervention: ambulation, SCD's Lines/Catheters IV Catheter Type (from Nrsg): Peripheral IV Assessment/Plan Chief Complaint/Hosp Course Assessment: Acute pancreatitis Secondary to hypertriglyceridemia Gastritis Chronic abdominal pain and diarrhea Status post nasal septoplasty Hypertension Asthma Plan: Ordered Lipid panel for Thursday Continue IV hydration Remain n.p.o. until pain subsides Continue pain management regimen Patient will need colonoscopy inpatient or outpatient Consultation was performed in collaboration with Dr. Birch Subjective: Patient reports significant amount of pain in the abdomen 8 out of 10 with pain medications every 3 hours. He is pain is mainly in the left upper quadrant. Labs reviewed bilirubin and lipase within normal limits. Elevated alkaline phosphatase 133. Lipid panel ordered for tomorrow morning lab draw. PHYSICAL EXAMINATION: GENERAL: Well developed, well nourished, alert & oriented x 3, in no acute distress SKIN: No lesions, no stigmata chronic liver disease, no evidence of bleeding diathesis LYMPHATIC: No palpable lymphadenopathy. HEAD: Normocephalic, atraumatic, no tenderness. EYES: Pupils equal reactive to light and accommodation, full extraocular movements, sclera clear, non-icteric, no discharge. EARS/NOSE AND THROAT: Ears normal, nose normal, oropharynx normal, oral membranes well hydrated without lesions. NECK: Supple, no masses, thyroid normal, JVP within normal limits, carotids normal without bruits. CHEST: Inspection within normal limits. CARDIOVASCULAR: Heart: Regular rate and rhythm, no murmurs, gallops or rubs. Peripheral pulses present within normal limits, no cyanosis, clubbing or edemas. No pulsatile abdominal mass RESPIRATORY: Lungs clear to auscultation and percussion, no wheezing, no rubs GASTROINTESTINAL AND LIVER: Abdomen: Soft, obese , severe tenderness in left upper and lower quadrant, non-distended, no hernias, no masses, no organomegaly , no ascites, no rebound tenderness, normoactive bowel sounds. Rectal: Deferred. GENITOURINARY: [Male genitalia within normal limits. EXTREMITIES: No cyanosis, clubbing or edema. Problems: Exam/Review of Systems Vital Signs Vitals Vital Signs Date Time Temp Pulse Resp B/P Pulse Ox O2 Delivery O2 Flow Rate FiO2 08/09/17 08:40 97.9 99 18 131/87 98 08/07/17 20:00 Room Air Intake and Output 08/08/17 08/08/17 08/09/17 15:00 23:00 07:00 Intake Total 1300 ml 400 ml 1600 ml Balance 1300 ml 400 ml 1600 ml Results Result Diagram: 08/09/17 0439 08/09/17 0439 Results 24 hrs Laboratory Tests Test 08/09/17 04:39 White Blood Count 8.7 # Red Blood Count 4.98 Hemoglobin 13.7 L Hematocrit 40.8 L Mean Corpuscular Volume 81.9 L Mean Corpuscular Hemoglobin 27.5 L Mean Corpuscular Hemoglobin Concent 33.6 Red Cell Distribution Width 12.6 Platelet Count 213 Mean Platelet Volume 10.0 Neutrophils % 77.1 H Lymphocytes % 11.7 L Monocytes % 8.5 Eosinophils % 1.7 Basophils % 0.3 Nucleated Red Blood Cells % 0.0 Neutrophils # 6.7 Lymphocytes # 1.0 Monocytes # 0.7 Eosinophils # 0.2 Basophils # 0.0 Nucleated Red Blood Cells # 0.0 Sodium Level 139 Potassium Level 4.3 Chloride Level 99 Carbon Dioxide Level 27 Anion Gap 17 H Blood Urea Nitrogen 9 Creatinine 0.64 Glucose Level 98 Calcium Level 9.3 Magnesium Level 1.9 Total Bilirubin 0.7 Direct Bilirubin 0.00 Indirect Bilirubin 0.7 Aspartate Amino Transf (AST/SGOT) 95 H Alanine Aminotransferase (ALT/SGPT) 179 H Alkaline Phosphatase 133 H Total Protein 7.4 Albumin 4.0 Globulin 3.40 H Albumin/Globulin Ratio 1.17 Lipase 132 Medications Medications Current Medications Sodium Chloride (NS) 1,000 ml @ 200 mls/hr Q5H IV Last administered on 07:57; Admin Dose 200 MLS/HR; Start 08/04/17 at 22:36 Ondansetron HCl (Zofran Inj) 4 mg Q6H PRN IV NAUSEA AND/OR VOMITING Last administered on 08/09/17 04:46; Admin Dose 4 MG; Start 08/04/17 at 23:00 Acetaminophen (Tylenol Tab) 650 mg Q6H PRN PO PAIN LEVEL 1-3 OR FEVER; Start 08/04/17 at 23:00 Docusate Sodium (Colace) 100 mg Q12H PRN PO CONSTIPATION; Start 08/04/17 at 23 :00 Bisacodyl (Dulcolax) 5 mg DAILY PRN PO CONSTIPATION Last administered on 19:53; Admin Dose 5 MG; Start 08/04/17 at 23:00 Pantoprazole (Protonix Iv) 40 mg DAILY@06 IV Last administered on 08/09/17 06: 41; Admin Dose 40 MG; Start 08/05/17 at 06:00 Hydrochlorothiazide (Hydrochlorothiazide) 25 mg DAILY PO Last administered on 08/06/17 10:10; Admin Dose 25 MG; Start 08/05/17 at 09:00; Status Future Hold Lisinopril (Zestril) 5 mg DAILY PO Last administered on 08/08/17 08:09; Admin Dose 5 MG; Start 08/05/17 at 09:00 Fish Oil (Fish Oil) 2,000 mg BID PO Last administered on 08/08/17 20:40; Admin Dose 2,000 MG; Start 08/05/17 at 09:00 Hydromorphone HCl (Dilaudid) 2 mg Q3H PRN IV PAIN 7-10 Last administered on 09:07; Admin Dose 2 MG; Start 08/05/17 at 16:00 Morphine Sulfate (morphine) 4 mg Q4H PRN IV PAIN LEVEL 4-6 Last administered on 08/05/17 20:52; Admin Dose 4 MG; Start 08/05/17 at 17:00 Salmeterol Xinafoate/ Fluticasone 1 inh 1 inh BID INH Last administered on 08/09 08:34; Admin Dose 1 INH; Start 08/05/17 at 21:00 Ciprofloxacin/ Dextrose 200 ml @ 200 mls/hr Q12 IVPB Last administered on 08/09 08:34; Admin Dose 200 MLS/HR; Start 08/06/17 at 12:00 Metronidazole (Flagyl 500 Mg (Pmx)) 100 ml @ 100 mls/hr Q6 IVPB Last administered on 08/09/17 06:41; Admin Dose 100 MLS/HR; Start 08/06/17 at 12:00 Hydralazine HCl (Apresoline) 10 mg Q6H PRN IV SBP >160; Start 08/06/17 at 12: 30 Metoclopramide HCl (Reglan) 10 mg Q6 IV Last administered on 08/09/17t 06:41; Admin Dose 10 MG; Start 08/07/17 at 00:00 ARMINDA TATUM NP Aug 09, 2017 09:51
[2017-08-09] MEDS ORDERED: BISACODYL 10 MG SUPP PR PRN (11:30)
--- NOTE | 2017-08-09 11:37 | PN ---
Date/Time of Note Date/Time of Note DATE: 08/09/17 TIME: 11:37 Assessment/Plan VTE Prophylaxis VTE Prophylaxis Intervention: SCD's Lines/Catheters IV Catheter Type (from Nrsg): Peripheral IV Assessment/Plan Assessment/Plan 1. Acute pancreatitis secondary to hyperTG versus possible biliary obstruction - GI consultation placed an appreciated recommendations. MRCP shows acute pancreatitis and dilation or right and left main hepatic ducts, CBD, and common hepatic duct up to 1.1 cm. Spoke with GI and patient will need better control of his TG to prevent further episodes. patient and made aware. - Patient has history of hyperTG and had 700 in the past. Lipid panel performed shows TG 400s which is unlikely to be causing pancreatitis - Patient has not consumed alcohol in 7 years as well - CT abd shows "Diffuse inflammatory changes within the peripancreatic mesentery , the left anterior and posterior pararenal spaces, the left paracolic gutter, and posterior to the gastric fundus and body. Increased attenuation within the gallbladder representing sludge and/or small stones. The common bile duct is mildly dilated measuring 9 mm" - IVF and pain control. Not tolerating diet but will NPO and advance when experiencing less pain - Lipase continues trending downwards 2. s/p nasal septoplasty 08/04 - Continue current postop care. 3. Hypertension - BP stable - PRN for now 4. asthma - Continue bronchodilator 5. gastritis - Continue PPI 6. Constipation - adjusted pain medications since most likely contributing to constipation - Will give suppository since unable to tolerate PO 7. Disposition - Continue monitoring in Med/Surg - not tolerating diet so needs to be continued on IVF. will advance diet as tolerated Subjective 24 Hr Interval Summary Free Text/Dictation patient states epigastric pain has improved but experiencing LLQ/flank pain. No acute overnight events. Still not tolerating clears and will continue NPO. Exam/Review of Systems Vital Signs Vitals Vital Signs Date Time Temp Pulse Resp B/P Pulse Ox O2 Delivery O2 Flow Rate FiO2 08/09/17 08:40 97.9 99 18 131/87 98 08/07/17 20:00 Room Air Intake and Output 08/08/17 08/08/17 08/09/17 15:00 23:00 07:00 Intake Total 1300 ml 400 ml 1600 ml Balance 1300 ml 400 ml 1600 ml Exam General: resting comfortably, awake and alert. in no acute distress, appears more comfortable HEENT: NC/AT, PERRL, neck supple Neck: Supple with full range of motion Lungs: Clear to auscultation bilaterally no crackles rales or wheezing Heart: Normal S1-S2, Regular rhythm and rate. No murmur, S3, or S4 Abdomen: soft, nondistended, tenderness LLQ with deep palpation. No rebound or guarding. Extremities: Normal to inspection, no edema no cyanosis Neurologic: Normal mental status, speech normal, cranial nerves II through XII are intact, motor and sensory are intact, no focal weakness Results Result Diagram: 08/09/1743808/09/17438 Results 24 hrs Laboratory Tests Test 08/09/17 04:39 White Blood Count 8.7 # Red Blood Count 4.98 Hemoglobin 13.7 L Hematocrit 40.8 L Mean Corpuscular Volume 81.9 L Mean Corpuscular Hemoglobin 27.5 L Mean Corpuscular Hemoglobin Concent 33.6 Red Cell Distribution Width 12.6 Platelet Count 213 Mean Platelet Volume 10.0 Neutrophils % 77.1 H Lymphocytes % 11.7 L Monocytes % 8.5 Eosinophils % 1.7 Basophils % 0.3 Nucleated Red Blood Cells % 0.0 Neutrophils # 6.7 Lymphocytes # 1.0 Monocytes # 0.7 Eosinophils # 0.2 Basophils # 0.0 Nucleated Red Blood Cells # 0.0 Sodium Level 139 Potassium Level 4.3 Chloride Level 99 Carbon Dioxide Level 27 Anion Gap 17 H Blood Urea Nitrogen 9 Creatinine 0.64 Glucose Level 98 Calcium Level 9.3 Magnesium Level 1.9 Total Bilirubin 0.7 Direct Bilirubin 0.00 Indirect Bilirubin 0.7 Aspartate Amino Transf (AST/SGOT) 95 H Alanine Aminotransferase (ALT/SGPT) 179 H Alkaline Phosphatase 133 H Total Protein 7.4 Albumin 4.0 Globulin 3.40 H Albumin/Globulin Ratio 1.17 Lipase 132 Medications Medications Current Medications Sodium Chloride (NS) 1,000 ml @ 100 mls/hr Q10H IV Last administered on 07:57; Admin Dose 200 MLS/HR; Start 08/04/17 at 22:36 Ondansetron HCl (Zofran Inj) 4 mg Q6H PRN IV NAUSEA AND/OR VOMITING Last administered on 08/09/17 04:46; Admin Dose 4 MG; Start 08/04/17 at 23:00 Acetaminophen (Tylenol Tab) 650 mg Q6H PRN PO PAIN LEVEL 1-3 OR FEVER; Start 08/04/17 at 23:00 Docusate Sodium (Colace) 100 mg Q12H PRN PO CONSTIPATION; Start 08/04/17 at 23 :00 Bisacodyl (Dulcolax) 5 mg DAILY PRN PO CONSTIPATION Last administered on 19:53; Admin Dose 5 MG; Start 08/04/17 at 23:00 Pantoprazole (Protonix Iv) 40 mg DAILY@06 IV Last administered on 08/09/17 06: 41; Admin Dose 40 MG; Start 08/05/17 at 06:00 Hydrochlorothiazide (Hydrochlorothiazide) 25 mg DAILY PO Last administered on 08/06/17 10:10; Admin Dose 25 MG; Start 08/05/17 at 09:00; Status Future Hold Lisinopril (Zestril) 5 mg DAILY PO Last administered on 08/08/17 08:09; Admin Dose 5 MG; Start 08/05/17 at 09:00 Fish Oil (Fish Oil) 2,000 mg BID PO Last administered on 08/08/17 20:40; Admin Dose 2,000 MG; Start 08/05/17 at 09:00 Salmeterol Xinafoate/ Fluticasone 1 inh 1 inh BID INH Last administered on 08/09 08:34; Admin Dose 1 INH; Start 08/05/17 at 21:00 Ciprofloxacin/ Dextrose 200 ml @ 200 mls/hr Q12 IVPB Last administered on 08/09 08:34; Admin Dose 200 MLS/HR; Start 08/06/17 at 12:00 Metronidazole (Flagyl 500 Mg (Pmx)) 100 ml @ 100 mls/hr Q6 IVPB Last administered on 08/09/17 06:41; Admin Dose 100 MLS/HR; Start 08/06/17 at 12:00 Hydralazine HCl (Apresoline) 10 mg Q6H PRN IV SBP >160; Start 08/06/17 at 12: 30 Metoclopramide HCl (Reglan) 10 mg Q6 IV Last administered on 08/09/17 06:41; Admin Dose 10 MG; Start 08/07/17 at 00:00 Hydromorphone HCl (Dilaudid) 1 mg Q3H PRN IV PAIN 7-10; Start 08/09/17 at 13:00 Morphine Sulfate (morphine) 2 mg Q4H PRN IV PAIN LEVEL 4-6; Start 08/09/17 at 13:00 Bisacodyl (Dulcolax Supp) 10 mg DAILY PRN [place] CONSTIPATION; Start 08/09/17 at 11 :30 MARISOL UPTON MD Aug 09, 2017 11:37
[2017-08-09] MEDS ORDERED: morphine 2 MG INJ IV PRN (13:00)
--- NOTE | 2017-08-09 13:59 | QN ---
Documentation Comment Patient shows some degree of improvement although pain remains significant Laboratories are improving We will repeat MRCP to determine need for further potential invasive intervention i.e. ERCP The patient's and the patient self have been explained in detail the nature of the process RACHEL JACQUES MD Aug 09, 2017 13:59
[2017-08-09 14:28] VITALS: BP 131/85; RESP 18
[2017-08-09 20:50] VITALS: BP 139/81; RESP 18
[2017-08-10 02:17] VITALS: BP 120/68; RESP 20
[2017-08-10 05:34] LABS: BASOPHILS % 0.5 % (0.0-2.0); EOSINOPHILS # 0.1 10^3/ul (0.0-0.5); EOSINOPHILS % 1.6 % (0.0-7.0); HEMATOCRIT 38.4 % (42.0-52.0); LYMPHOCYTES # 1.4 10^3/ul (0.8-2.9); LYMPHOCYTES % 16.6 % (15.0-51.0); MEAN CORPUSCULAR HEMOGLOBIN 27.8 pg (29.0-33.0); MEAN CORPUSCULAR HGB CONC 33.9 g/dl (32.0-37.0); MEAN CORPUSCULAR VOLUME 82.1 fl (82.0-101.0); MEAN PLATELET VOLUME 10.1 fl (7.4-10.4); MONOCYTE # 0.7 10^3/ul (0.3-0.9); MONOCYTES % 8.5 % (0.0-11.0); NEUTROPHILS % 72.1 % (39.0-77.0); PLATELET COUNT 223 10^3/UL (140-415); RED BLOOD COUNT 4.68 10^6/ul (4.70-6.10); RED CELL DISTRIBUTION WIDTH 12.9 % (11.5-14.5); WHITE BLOOD COUNT 8.4 10^3/ul (4.8-10.8)
[2017-08-10] MEDS: METOCLOPRAMIDE 10 MG INJ IV SCH ×4 (05:43→23:42)
[2017-08-10] MEDS: PANTOPRAZOLE 40 MG INJ IV SCH (05:43)
[2017-08-10] MEDS: metroNIDAZOLE 500 MG/NS (PMX) 100 ML IVPB SCH ×4 (05:43→23:43)
[2017-08-10 06:01] LABS: CHOL/HDL RATIO 8.7 RATIO
[2017-08-10 06:13] LABS: ALBUMIN 3.6 g/dl (3.3-4.9); BILIRUBIN,INDIRECT 0.5 mg/dl (0-1.1); BILIRUBIN,TOTAL 0.5 mg/dl (0.2-1.3); CALCIUM 9.5 mg/dl (8.4-10.2); CREATININE 0.65 mg/dl (0.61-1.24); MAGNESIUM 1.9 mg/dl (1.7-2.5); POTASSIUM 3.9 mmol/L (3.5-5.1); TOTAL PROTEIN 7.2 g/dl (6.1-8.1)
[2017-08-10 07:49] VITALS: BP 129/84; RESP 16
[2017-08-10] MEDS: HYDROmorphONE 2 MG/ML SYG IV PRN (07:53)
[2017-08-10] MEDS: LISINOPRIL 5 MG TAB PO SCH (08:39)
[2017-08-10] MEDS: SALMETEROL/FLUTICASONE 250/50 INHA INH SCH ×2 (08:39→20:21)
[2017-08-10] MEDS: FISH OIL 1,000 MG CAP PO SCH ×2 (08:39→20:21)
[2017-08-10] MEDS: CIPROFLOXACIN 400MG/D5W 200 ML IVPB SCH ×2 (08:40→20:21)
[2017-08-10] MEDS: SOD CHLORIDE 0.9% 1,000 ML IV SCH ×2 (08:43→19:40)
--- NOTE | 2017-08-10 10:32 | PN ---
Date/Time of Note Date/Time of Note DATE: 08/10/17 TIME: 10:29 Assessment/Plan VTE Prophylaxis VTE Prophylaxis Intervention: SCD's Lines/Catheters IV Catheter Type (from Nrsg): Peripheral IV Assessment/Plan Chief Complaint/Hosp Course Assessment: Acute pancreatitis likely r/t hypertriglyceridemia Gastritis Chronic abdominal pain and diarrhea Status post nasal septoplasty Hypertension Asthma Plan: Triglycerides WNL Continue IV hydration Remain n.p.o. until pain subsides Continue pain management regimen Plan for MRI today Patient seen in collaboration with Dr. Birch Subjective:: Course reviewed with nursing staff Patient interviewed and examined All labs, imaging and other results reviewed The patient continues to have significant pain LLQ, epigastric pain and LLQ pain have improved. With pain medication pain is 6 out of 10 however without medication pain is 10/10. Labs continue to improve. Plan for MRI of the abd today, further recommendations with results of MRI. PHYSICAL EXAMINATION: GENERAL: Well developed, well nourished, alert & oriented x 3, in no acute distress SKIN: No lesions, no stigmata chronic liver disease, no evidence of bleeding diathesis LYMPHATIC: No palpable lymphadenopathy. HEAD: Normocephalic, atraumatic, no tenderness. EYES: Pupils equal reactive to light and accommodation, full extraocular movements, sclera clear, non-icteric, no discharge. EARS/NOSE AND THROAT: Ears normal, nose normal, oropharynx normal, oral membranes well hydrated without lesions. NECK: Supple, no masses, thyroid normal, JVP within normal limits, carotids normal without bruits. CHEST: Inspection within normal limits. CARDIOVASCULAR: Heart: Regular rate and rhythm, no murmurs, gallops or rubs. Peripheral pulses present within normal limits, no cyanosis, clubbing or edemas. No pulsatile abdominal mass RESPIRATORY: Lungs clear to auscultation and percussion, no wheezing, no rubs GASTROINTESTINAL AND LIVER: Abdomen: Soft, obese , severe tenderness in left upper and lower quadrant, non-distended, no hernias, no masses, no organomegaly , no ascites, no rebound tenderness, normoactive bowel sounds. Rectal: Deferred. GENITOURINARY: [Male genitalia within normal limits. EXTREMITIES: No cyanosis, clubbing or edema. Problems: Exam/Review of Systems Vital Signs Vitals Vital Signs Date Time Temp Pulse Resp B/P Pulse Ox O2 Delivery O2 Flow Rate FiO2 08/10/17 07:49 97.9 81 16 129/84 96 08/07/17 20:00 Room Air Intake and Output 08/09/17 08/09/17 08/10/17 15:00 23:00 07:00 Intake Total 1400 ml 1010 ml Balance 1400 ml 1010 ml Results Result Diagram: 08/10/17 0451 08/10/17 0451 Results 24 hrs Laboratory Tests Test 08/10/17 04:51 White Blood Count 8.4 Red Blood Count 4.68 L Hemoglobin 13.0 L Hematocrit 38.4 L Mean Corpuscular Volume 82.1 Mean Corpuscular Hemoglobin 27.8 L Mean Corpuscular Hemoglobin Concent 33.9 Red Cell Distribution Width 12.9 Platelet Count 223 Mean Platelet Volume 10.1 Neutrophils % 72.1 Lymphocytes % 16.6 Monocytes % 8.5 Eosinophils % 1.6 Basophils % 0.5 Nucleated Red Blood Cells % 0.0 Neutrophils # 6.0 Lymphocytes # 1.4 Monocytes # 0.7 Eosinophils # 0.1 Basophils # 0.0 Nucleated Red Blood Cells # 0.0 Sodium Level 141 Potassium Level 3.9 Chloride Level 102 Carbon Dioxide Level 26 Anion Gap 17 H Blood Urea Nitrogen 13 Creatinine 0.65 Glucose Level 94 Calcium Level 9.5 Magnesium Level 1.9 Total Bilirubin 0.5 Direct Bilirubin 0.00 Indirect Bilirubin 0.5 Aspartate Amino Transf (AST/SGOT) 57 H Alanine Aminotransferase (ALT/SGPT) 153 H Alkaline Phosphatase 109 Total Protein 7.2 Albumin 3.6 Globulin 3.60 H Albumin/Globulin Ratio 1.00 Triglycerides Level 129 Cholesterol Level 227 H LDL Cholesterol, Calculated 175 HDL Cholesterol 26 L Cholesterol/HDL Ratio 8.7 Medications Medications Current Medications Sodium Chloride (NS) 1,000 ml @ 100 mls/hr Q10H IV Last administered on 08:43; Admin Dose 100 MLS/HR; Start 08/04/17 at 22:36 Ondansetron HCl (Zofran Inj) 4 mg Q6H PRN IV NAUSEA AND/OR VOMITING Last administered on 08/09/17 04:46; Admin Dose 4 MG; Start 08/04/17 at 23:00 Acetaminophen (Tylenol Tab) 650 mg Q6H PRN PO PAIN LEVEL 1-3 OR FEVER; Start 08/04/17 at 23:00 Docusate Sodium (Colace) 100 mg Q12H PRN PO CONSTIPATION; Start 08/04/17 at 23 :00 Bisacodyl (Dulcolax) 5 mg DAILY PRN PO CONSTIPATION Last administered on 19:53; Admin Dose 5 MG; Start 08/04/17 at 23:00 Pantoprazole (Protonix Iv) 40 mg DAILY@06 IV Last administered on 08/10/17 05: 43; Admin Dose 40 MG; Start 08/05/17 at 06:00 Hydrochlorothiazide (Hydrochlorothiazide) 25 mg DAILY PO Last administered on 08/06/17 10:10; Admin Dose 25 MG; Start 08/05/17 at 09:00; Status Future Hold Lisinopril (Zestril) 5 mg DAILY PO Last administered on 08/10/17 08:39; Admin Dose 5 MG; Start 08/05/17 at 09:00 Fish Oil (Fish Oil) 2,000 mg BID PO Last administered on 08/10/17 08:39; Admin Dose 2,000 MG; Start 08/05/17 at 09:00 Salmeterol Xinafoate/ Fluticasone 1 inh 1 inh BID INH Last administered on 08/10 08:39; Admin Dose 1 INH; Start 08/05/17 at 21:00 Ciprofloxacin/ Dextrose 200 ml @ 200 mls/hr Q12 IVPB Last administered on 08/10 08:40; Admin Dose 200 MLS/HR; Start 08/06/17 at 12:00 Metronidazole (Flagyl 500 Mg (Pmx)) 100 ml @ 100 mls/hr Q6 IVPB Last administered on 08/10/17 05:43; Admin Dose 100 MLS/HR; Start 08/06/17 at 12:00 Hydralazine HCl (Apresoline) 10 mg Q6H PRN IV SBP >160; Start 08/06/17 at 12: 30 Metoclopramide HCl (Reglan) 10 mg Q6 IV Last administered on 08/10/17 05:43; Admin Dose 10 MG; Start 08/07/17 at 00:00 Hydromorphone HCl (Dilaudid) 1 mg Q3H PRN IV PAIN 7-10 Last administered on 07:53; Admin Dose 1 MG; Start 08/09/17 at 13:00 Morphine Sulfate (morphine) 2 mg Q4H PRN IV PAIN LEVEL 4-6; Start 08/09/17 at 13:00 Bisacodyl (Dulcolax Supp) 10 mg DAILY PRN [place] CONSTIPATION Last administered on 08/09/17t 12:26; Admin Dose 10 MG; Start 08/09/17 at 11:30 TAMMY MONSON Aug 10, 2017 10:32
[2017-08-10] MEDS: ONDANSETRON 4 MG INJ IV PRN (10:34)
--- NOTE | 2017-08-10 14:20 | PN ---
Date/Time of Note Date/Time of Note DATE: 08/10/17 TIME: 14:15 Assessment/Plan VTE Prophylaxis VTE Prophylaxis Intervention: SCD's Lines/Catheters IV Catheter Type (from Nrsg): Peripheral IV Assessment/Plan Assessment/Plan 1. Acute pancreatitis likely 2/2 biliary obstruction with a hx of hypertriglyceridemia: -LFTS trending down and lipase improving. GI following, see dispo below 2. s/p nasal septoplasty 08/04 - Continue current postop care. 3. Hypertension - BP stable - PRN for now 4. asthma - Continue bronchodilator PRN 5. gastritis - Continue PPI 6. Constipation - adjusted pain medications since most likely contributing to constipation - Will give suppository since unable to tolerate PO 7. Disposition - Continue monitoring in Med/Surg -MRCP planned for today after which GI will review for possible ERCP if indicated in view of improving LFTs Subjective 24 Hr Interval Summary Free Text/Dictation Patient seen, no abd pain at this time. MRCP planned for today after which GI will review for possible ERCP if indicated. Exam/Review of Systems Vital Signs Vitals Vital Signs Date Time Temp Pulse Resp B/P Pulse Ox O2 Delivery O2 Flow Rate FiO2 08/10/17 07:49 97.9 81 16 129/84 96 08/07/17 20:00 Room Air Intake and Output 08/09/17 08/09/17 08/10/17 15:00 23:00 07:00 Intake Total 1400 ml 1010 ml Balance 1400 ml 1010 ml Results Result Diagram: 08/10/17 0451 08/10/17 0451 Results 24 hrs Laboratory Tests Test 08/10/17 04:51 White Blood Count 8.4 Red Blood Count 4.68 L Hemoglobin 13.0 L Hematocrit 38.4 L Mean Corpuscular Volume 82.1 Mean Corpuscular Hemoglobin 27.8 L Mean Corpuscular Hemoglobin Concent 33.9 Red Cell Distribution Width 12.9 Platelet Count 223 Mean Platelet Volume 10.1 Neutrophils % 72.1 Lymphocytes % 16.6 Monocytes % 8.5 Eosinophils % 1.6 Basophils % 0.5 Nucleated Red Blood Cells % 0.0 Neutrophils # 6.0 Lymphocytes # 1.4 Monocytes # 0.7 Eosinophils # 0.1 Basophils # 0.0 Nucleated Red Blood Cells # 0.0 Sodium Level 141 Potassium Level 3.9 Chloride Level 102 Carbon Dioxide Level 26 Anion Gap 17 H Blood Urea Nitrogen 13 Creatinine 0.65 Glucose Level 94 Calcium Level 9.5 Magnesium Level 1.9 Total Bilirubin 0.5 Direct Bilirubin 0.00 Indirect Bilirubin 0.5 Aspartate Amino Transf (AST/SGOT) 57 H Alanine Aminotransferase (ALT/SGPT) 153 H Alkaline Phosphatase 109 Total Protein 7.2 Albumin 3.6 Globulin 3.60 H Albumin/Globulin Ratio 1.00 Triglycerides Level 129 Cholesterol Level 227 H LDL Cholesterol, Calculated 175 HDL Cholesterol 26 L Cholesterol/HDL Ratio 8.7 Medications Medications Current Medications Sodium Chloride (NS) 1,000 ml @ 100 mls/hr Q10H IV Last administered on 08:43; Admin Dose 100 MLS/HR; Start 08/04/17 at 22:36 Ondansetron HCl (Zofran Inj) 4 mg Q6H PRN IV NAUSEA AND/OR VOMITING Last administered on 08/10/17 10:34; Admin Dose 4 MG; Start 08/04/17 at 23:00 Acetaminophen (Tylenol Tab) 650 mg Q6H PRN PO PAIN LEVEL 1-3 OR FEVER; Start 08/04/17 at 23:00 Docusate Sodium (Colace) 100 mg Q12H PRN PO CONSTIPATION; Start 08/04/17 at 23 :00 Bisacodyl (Dulcolax) 5 mg DAILY PRN PO CONSTIPATION Last administered on 19:53; Admin Dose 5 MG; Start 08/04/17 at 23:00 Pantoprazole (Protonix Iv) 40 mg DAILY@06 IV Last administered on 08/10/17 05: 43; Admin Dose 40 MG; Start 08/05/17 at 06:00 Hydrochlorothiazide (Hydrochlorothiazide) 25 mg DAILY PO Last administered on 08/06/17 10:10; Admin Dose 25 MG; Start 08/05/17 at 09:00; Status Future Hold Lisinopril (Zestril) 5 mg DAILY PO Last administered on 08/10/17 08:39; Admin Dose 5 MG; Start 08/05/17 at 09:00 Fish Oil (Fish Oil) 2,000 mg BID PO Last administered on 08/10/17 08:39; Admin Dose 2,000 MG; Start 08/05/17 at 09:00 Salmeterol Xinafoate/ Fluticasone 1 inh 1 inh BID INH Last administered on 08/10 08:39; Admin Dose 1 INH; Start 08/05/17 at 21:00 Ciprofloxacin/ Dextrose 200 ml @ 200 mls/hr Q12 IVPB Last administered on 08/10 08:40; Admin Dose 200 MLS/HR; Start 08/06/17 at 12:00 Metronidazole (Flagyl 500 Mg (Pmx)) 100 ml @ 100 mls/hr Q6 IVPB Last administered on 08/10/17 13:24; Admin Dose 100 MLS/HR; Start 08/06/17 at 12:00 Hydralazine HCl (Apresoline) 10 mg Q6H PRN IV SBP >160; Start 08/06/17 at 12: 30 Metoclopramide HCl (Reglan) 10 mg Q6 IV Last administered on 08/10/17 13:24; Admin Dose 10 MG; Start 08/07/17 at 00:00 Hydromorphone HCl (Dilaudid) 1 mg Q3H PRN IV PAIN 7-10 Last administered on 07:53; Admin Dose 1 MG; Start 08/09/17 at 13:00 Morphine Sulfate (morphine) 2 mg Q4H PRN IV PAIN LEVEL 4-6; Start 08/09/17 at 13:00 Bisacodyl (Dulcolax Supp) 10 mg DAILY PRN [place] CONSTIPATION Last administered on 08/09/17 12:26; Admin Dose 10 MG; Start 08/09/17 at 11:30 DAVID PENALOZA Aug 10, 2017 14:20
--- NOTE | 2017-08-10 14:43 | RADRPT ---
PROCEDURE: MR Abdomen and MRCP. CLINICAL INDICATION: Rule out biliary obstruction TECHNIQUE: MRI abdomen without contrast and MRCP was performed on a high-resolution high field [facility] er. 3-D coronal rotating MIP images of the biliary tree are available for review. COMPARISON: MRI abdomen dated August 07, [address] abdomen/pelvis dated August 05, 2017 FINDINGS: MRI Abdomen: Hepatic morphology is within limits. No gross T2 signal abnormalities. The spleen is unremarkable. There is a irregular appearance of the borders of the tail of the pancr eas with mild adjacent fat stranding, consistent with acute pancreatitis. The pancreatic duct otherw ise appears to be within normal limits. Fluid is noted within the left pararenal space and within th e left paracolic gutter. Fluid is decreased since prior study. Both adrenal glands are within normal limits. Both kidneys are in normal anatomic position. No evide nce of obstruction or hydronephrosis. The visualized GI tract demonstrate normal caliber loops of small and large bowel. No evidence of kane wel obstruction. The aorta is within limits. There is no significant retroperitoneal lymphadenopathy. Normal homogeneous marrow signal is identified. Spinal canal is within normal limits. MRCP: Gallbladder appears to be within normal limits. There is mild distension of the right and left main and common hepatic duct as well as the common bile duct measuring up to 1.0 cm. However, no gross ab normal filling defects are identified. No evidence of abnormal strictures. The cystic duct appears t o be within normal limits. Pancreatic duct is within normal limits. IMPRESSION: 1. Again there is dilatation of the right and left main hepatic biliary ducts, common hepatic duct a nd common bile duct measuring up to 1.0 cm. However, no gross abnormal filling defects/CBD stones. F indings may represent generalized ectasia 2. No gross MR evidence of gallstones. No evidence of inflammatory changes. 3. Again identified are inflammatory changes surrounding the tail of the pancreas with ill-defined b orders and small amount of fluid within the left upper quadrant and surrounding the left pararenal s pace and left paracolic gutter. Findings are consistent with pancreatitis. There is decreased amount of fluid since prior study. No gross focal fluid collections noted at this time. RPTAT: AAPP Austin Toussaint Physician Date Time Electronically viewed and signed by Austin Toussaint Physician on 08/10/2017 14:43 JL/
[2017-08-10 14:48] VITALS: BP 136/70; RESP 18
[2017-08-10 20:00] VITALS: BP 126/92; RESP 19
[2017-08-11] MEDS: SOD CHLORIDE 0.9% 1,000 ML IV SCH ×2 (01:49→14:39)
[2017-08-11] MEDS: metroNIDAZOLE 500 MG/NS (PMX) 100 ML IVPB SCH ×3 (05:28→18:53)
[2017-08-11] MEDS: METOCLOPRAMIDE 10 MG INJ IV SCH ×4 (05:29→23:34)
[2017-08-11] MEDS: PANTOPRAZOLE 40 MG INJ IV SCH (05:29)
[2017-08-11 06:08] LABS: BASOPHILS % 0.3 % (0.0-2.0); EOSINOPHILS # 0.1 10^3/ul (0.0-0.5); HEMATOCRIT 39.9 % (42.0-52.0); HEMOGLOBIN 13.5 g/dl (14.0-18.0); LYMPHOCYTES # 1.4 10^3/ul (0.8-2.9); LYMPHOCYTES % 16.1 % (15.0-51.0); MEAN CORPUSCULAR HEMOGLOBIN 27.6 pg (29.0-33.0); MEAN CORPUSCULAR HGB CONC 33.8 g/dl (32.0-37.0); MEAN CORPUSCULAR VOLUME 81.4 fl (82.0-101.0); MONOCYTE # 0.6 10^3/ul (0.3-0.9); MONOCYTES % 6.8 % (0.0-11.0); NEUTROPHIL # 6.5 10^3/ul (1.6-7.5); NEUTROPHILS % 75.3 % (39.0-77.0); PLATELET COUNT 238 10^3/UL (140-415); RED CELL DISTRIBUTION WIDTH 12.8 % (11.5-14.5); WHITE BLOOD COUNT 8.6 10^3/ul (4.8-10.8)
[2017-08-11 06:46] LABS: ALBUMIN 3.6 g/dl (3.3-4.9); ALBUMIN/GLOBULIN RATIO 0.92; BILIRUBIN,INDIRECT 0.4 mg/dl (0-1.1); BILIRUBIN,TOTAL 0.4 mg/dl (0.2-1.3); CALCIUM 9.8 mg/dl (8.4-10.2); CREATININE 0.64 mg/dl (0.61-1.24); MAGNESIUM 1.9 mg/dl (1.7-2.5); POTASSIUM 3.8 mmol/L (3.5-5.1); TOTAL PROTEIN 7.5 g/dl (6.1-8.1)
[2017-08-11 08:00] VITALS: BP 136/79; RESP 20
[2017-08-11] MEDS: SALMETEROL/FLUTICASONE 250/50 INHA INH SCH ×2 (09:23→20:24)
[2017-08-11] MEDS: FISH OIL 1,000 MG CAP PO SCH ×2 (09:23→23:34)
[2017-08-11] MEDS: LISINOPRIL 5 MG TAB PO SCH (09:23)
[2017-08-11] MEDS: CIPROFLOXACIN 400MG/D5W 200 ML IVPB SCH ×2 (09:23→20:24)
--- NOTE | 2017-08-11 10:47 | PN ---
Date/Time of Note Date/Time of Note DATE: 08/11/17 TIME: 10:28 Assessment/Plan VTE Prophylaxis VTE Prophylaxis Intervention: SCD's Lines/Catheters IV Catheter Type (from Nrsg): Peripheral IV Assessment/Plan Chief Complaint/Hosp Course Assessment: Acute pancreatitis likely r/t hypertriglyceridemia Gastritis Chronic abdominal pain and diarrhea Status post nasal septoplasty Hypertension Asthma Plan: Triglycerides WNL Continue IV hydration pain significantly better- will start clear liquid diet Continue pain management regimen Plan for MRI - CBD dilation no choledocholithiasis, improvement from last MRI Patient seen in collaboration with Dr. Birch Subjective:: Course reviewed with nursing staff Patient interviewed and examined All labs, imaging and other results reviewed The patient is feeling significantly better pain is a 1/10, denies nausea and vomiting, discuss results of MRI patient and both verbalized understanding. Continue to monitor PHYSICAL EXAMINATION: GENERAL: Well developed, well nourished, alert & oriented x 3, in no acute distress SKIN: No lesions, no stigmata chronic liver disease, no evidence of bleeding diathesis LYMPHATIC: No palpable lymphadenopathy. HEAD: Normocephalic, atraumatic, no tenderness. EYES: Pupils equal reactive to light and accommodation, full extraocular movements, sclera clear, non-icteric, no discharge. EARS/NOSE AND THROAT: Ears normal, nose normal, oropharynx normal, oral membranes well hydrated without lesions. NECK: Supple, no masses, thyroid normal, JVP within normal limits, carotids normal without bruits. CHEST: Inspection within normal limits. CARDIOVASCULAR: Heart: Regular rate and rhythm, no murmurs, gallops or rubs. Peripheral pulses present within normal limits, no cyanosis, clubbing or edemas. No pulsatile abdominal mass RESPIRATORY: Lungs clear to auscultation and percussion, no wheezing, no rubs GASTROINTESTINAL AND LIVER: Abdomen: Soft, obese , severe tenderness in left upper and lower quadrant, non-distended, no hernias, no masses, no organomegaly , no ascites, no rebound tenderness, normoactive bowel sounds. Rectal: Deferred. GENITOURINARY: [Male genitalia within normal limits. EXTREMITIES: No cyanosis, clubbing or edema. Problems: Exam/Review of Systems Vital Signs Vitals Vital Signs Date Time Temp Pulse Resp B/P Pulse Ox O2 Delivery O2 Flow Rate FiO2 08/11/17 08:00 98.8 68 20 136/79 96 12/1/17 20:00 Room Air Intake and Output 08/10/17 08/10/17 08/11/17 15:00 23:00 07:00 Intake Total 500 ml 980 ml 1000 ml Balance 500 ml 980 ml 1000 ml Results Result Diagram: 08/11/17 0528 08/11/17 0527 Results 24 hrs Laboratory Tests Test 08/11/17 05:27 08/11/17 05:28 Sodium Level 144 Potassium Level 3.8 Chloride Level 105 Carbon Dioxide Level 25 Anion Gap 18 H Blood Urea Nitrogen 11 Creatinine 0.64 Glucose Level 97 Calcium Level 9.8 Magnesium Level 1.9 Total Bilirubin 0.4 Direct Bilirubin 0.00 Indirect Bilirubin 0.4 Aspartate Amino Transf (AST/SGOT) 42 Alanine Aminotransferase (ALT/SGPT) 127 H Alkaline Phosphatase 101 Total Protein 7.5 Albumin 3.6 Globulin 3.90 H Albumin/Globulin Ratio 0.92 White Blood Count 8.6 Red Blood Count 4.90 Hemoglobin 13.5 L Hematocrit 39.9 L Mean Corpuscular Volume 81.4 L Mean Corpuscular Hemoglobin 27.6 L Mean Corpuscular Hemoglobin Concent 33.8 Red Cell Distribution Width 12.8 Platelet Count 238 Mean Platelet Volume 10.0 Neutrophils % 75.3 Lymphocytes % 16.1 Monocytes % 6.8 Eosinophils % 1.0 Basophils % 0.3 Nucleated Red Blood Cells % 0.0 Neutrophils # 6.5 Lymphocytes # 1.4 Monocytes # 0.6 Eosinophils # 0.1 Basophils # 0.0 Nucleated Red Blood Cells # 0.0 Medications Medications Current Medications Sodium Chloride (NS) 1,000 ml @ 100 mls/hr Q10H IV Last administered on 01:49; Admin Dose 100 MLS/HR; Start 08/04/17 at 22:36 Ondansetron HCl (Zofran Inj) 4 mg Q6H PRN IV NAUSEA AND/OR VOMITING Last administered on 08/10/17 10:34; Admin Dose 4 MG; Start 08/04/17 at 23:00 Acetaminophen (Tylenol Tab) 650 mg Q6H PRN PO PAIN LEVEL 1-3 OR FEVER; Start 08/04/17 at 23:00 Docusate Sodium (Colace) 100 mg Q12H PRN PO CONSTIPATION; Start 08/04/17 at 23 :00 Bisacodyl (Dulcolax) 5 mg DAILY PRN PO CONSTIPATION Last administered on 19:53; Admin Dose 5 MG; Start 08/04/17 at 23:00 Pantoprazole (Protonix Iv) 40 mg DAILY@06 IV Last administered on 08/11/17 05: 29; Admin Dose 40 MG; Start 08/05/17 at 06:00 Hydrochlorothiazide (Hydrochlorothiazide) 25 mg DAILY PO Last administered on 08/06/17 10:10; Admin Dose 25 MG; Start 08/05/17 at 09:00; Status Future Hold Lisinopril (Zestril) 5 mg DAILY PO Last administered on 08/11/17 09:23; Admin Dose 5 MG; Start 08/05/17 at 09:00 Fish Oil (Fish Oil) 2,000 mg BID PO Last administered on 08/11/17 09:23; Admin Dose 2,000 MG; Start 08/05/17 at 09:00 Salmeterol Xinafoate/ Fluticasone 1 inh 1 inh BID INH Last administered on 08/11 09:23; Admin Dose 1 INH; Start 08/05/17 at 21:00 Ciprofloxacin/ Dextrose 200 ml @ 200 mls/hr Q12 IVPB Last administered on 08/11 09:23; Admin Dose 200 MLS/HR; Start 08/06/17 at 12:00 Metronidazole (Flagyl 500 Mg (Pmx)) 100 ml @ 100 mls/hr Q6 IVPB Last administered on 08/11/17 05:28; Admin Dose 100 MLS/HR; Start 08/06/17 at 12:00 Hydralazine HCl (Apresoline) 10 mg Q6H PRN IV SBP >160; Start 08/06/17 at 12: 30 Metoclopramide HCl (Reglan) 10 mg Q6 IV Last administered on 08/11/17 05:29; Admin Dose 10 MG; Start 08/07/17 at 00:00 Hydromorphone HCl (Dilaudid) 1 mg Q3H PRN IV PAIN 7-10 Last administered on 07:53; Admin Dose 1 MG; Start 08/09/17 at 13:00 Morphine Sulfate (morphine) 2 mg Q4H PRN IV PAIN LEVEL 4-6; Start 08/09/17 at 13:00 Bisacodyl (Dulcolax Supp) 10 mg DAILY PRN [place] CONSTIPATION Last administered on 08/09/17t 12:26; Admin Dose 10 MG; Start 08/09/17 at 11:30 TAMMY MONSON Aug 11, 2017 10:47
[2017-08-11] MEDS: ONDANSETRON 4 MG INJ IV PRN (10:55)
[2017-08-11 14:00] VITALS: BP 132/80; RESP 18
[2017-08-11] MEDS ORDERED: ALBUTEROL/IPRATROPIUM (NEB) 3 ML AMP HHN PRN (14:30)
--- NOTE | 2017-08-11 16:22 | PN ---
Date/Time of Note Date/Time of Note DATE: 08/11/17 TIME: 16:05 Assessment/Plan VTE Prophylaxis VTE Prophylaxis Intervention: SCD's Lines/Catheters IV Catheter Type (from Nrs): Peripheral IV Urinary Cath still in place: No Assessment/Plan Chief Complaint/Hosp Course s: mildly better abdominal pain o: Physical exam General: Patient is laying in bed and answers questions appropriately Mentation: Patient is alert and oriented 4, Head: Normocephalic atraumatic Eyes: EOMI, pupils reactive to light Neck: Supple, nontender, midline Respiratory: Clear to auscultation bilaterally Cardiovascular: regular rate, no obvious murmurs Gastrointestinal: mildly tender to palpation, bowel sounds heard. Neurological: Moves all extremities spontaneously Skin: No new skin lesions Assessment/Plan 1. Acute pancreatitis -LFTS trending down and lipase improving. GI following, -hx hypertriglyceridemia , lower now - 2. s/p nasal septoplasty 08/04 - Continue current postop care. 3. Hypertension - BP stable - PRN for now 4. asthma - Continue bronchodilator PRN 5. gastritis - Continue PPI 6. Constipation - adjusted pain medications since most likely contributing to constipation - Will give suppository since unable to tolerate PO 7. Disposition - Continue monitoring in Med/Surg - clear liquid diet, monitor abdominal pain. dc when no pain and able to tolerate PO Problems: Exam/Review of Systems Vital Signs Vitals Vital Signs Date Time Temp Pulse Resp B/P Pulse Ox O2 Delivery O2 Flow Rate FiO2 08/11/17 14:37 80 18 97 21 08/11/17 08:00 98.8 136/79 08/07/17 20:00 Room Air Intake and Output 08/10/17 08/10/17 08/11/17 15:00 23:00 07:00 Intake Total 500 ml 980 ml 1000 ml Balance 500 ml 980 ml 1000 ml Results Result Diagram: 08/11/1752708/11/1727 Results 24 hrs Laboratory Tests Test 08/11/17 05:27 08/11/17 05:28 Sodium Level 144 Potassium Level 3.8 Chloride Level 105 Carbon Dioxide Level 25 Anion Gap 18 H Blood Urea Nitrogen 11 Creatinine 0.64 Glucose Level 97 Calcium Level 9.8 Magnesium Level 1.9 Total Bilirubin 0.4 Direct Bilirubin 0.00 Indirect Bilirubin 0.4 Aspartate Amino Transf (AST/SGOT) 42 Alanine Aminotransferase (ALT/SGPT) 127 H Alkaline Phosphatase 101 Total Protein 7.5 Albumin 3.6 Globulin 3.90 H Albumin/Globulin Ratio 0.92 White Blood Count 8.6 Red Blood Count 4.90 Hemoglobin 13.5 L Hematocrit 39.9 L Mean Corpuscular Volume 81.4 L Mean Corpuscular Hemoglobin 27.6 L Mean Corpuscular Hemoglobin Concent 33.8 Red Cell Distribution Width 12.8 Platelet Count 238 Mean Platelet Volume 10.0 Neutrophils % 75.3 Lymphocytes % 16.1 Monocytes % 6.8 Eosinophils % 1.0 Basophils % 0.3 Nucleated Red Blood Cells % 0.0 Neutrophils # 6.5 Lymphocytes # 1.4 Monocytes # 0.6 Eosinophils # 0.1 Basophils # 0.0 Nucleated Red Blood Cells # 0.0 Medications Medications Current Medications Sodium Chloride (NS) 1,000 ml @ 100 mls/hr Q10H IV Last administered on 14:39; Admin Dose 100 MLS/HR; Start 08/04/17 at 22:36 Ondansetron HCl (Zofran Inj) 4 mg Q6H PRN IV NAUSEA AND/OR VOMITING Last administered on 08/11/17 10:55; Admin Dose 4 MG; Start 08/04/17 at 23:00 Acetaminophen (Tylenol Tab) 650 mg Q6H PRN PO PAIN LEVEL 1-3 OR FEVER; Start 08/04/17 at 23:00 Docusate Sodium (Colace) 100 mg Q12H PRN PO CONSTIPATION; Start 08/04/17 at 23 :00 Bisacodyl (Dulcolax) 5 mg DAILY PRN PO CONSTIPATION Last administered on 19:53; Admin Dose 5 MG; Start 08/04/17 at 23:00 Pantoprazole (Protonix Iv) 40 mg DAILY@06 IV Last administered on 08/11/17 05: 29; Admin Dose 40 MG; Start 08/05/17 at 06:00 Hydrochlorothiazide (Hydrochlorothiazide) 25 mg DAILY PO Last administered on 08/06/17 10:10; Admin Dose 25 MG; Start 08/05/17 at 09:00; Status Future Hold Lisinopril (Zestril) 5 mg DAILY PO Last administered on 08/11/17 09:23; Admin Dose 5 MG; Start 08/05/17 at 09:00 Fish Oil (Fish Oil) 2,000 mg BID PO Last administered on 08/11/17 09:23; Admin Dose 2,000 MG; Start 08/05/17 at 09:00 Salmeterol Xinafoate/ Fluticasone 1 inh 1 inh BID INH Last administered on 08/11 09:23; Admin Dose 1 INH; Start 08/05/17 at 21:00 Ciprofloxacin/ Dextrose 200 ml @ 200 mls/hr Q12 IVPB Last administered on 08/11 09:23; Admin Dose 200 MLS/HR; Start 08/06/17 at 12:00 Metronidazole (Flagyl 500 Mg (Pmx)) 100 ml @ 100 mls/hr Q6 IVPB Last administered on 08/11/17 11:33; Admin Dose 100 MLS/HR; Start 08/06/17 at 12:00 Hydralazine HCl (Apresoline) 10 mg Q6H PRN IV SBP >160; Start 08/06/17 at 12: 30 Metoclopramide HCl (Reglan) 10 mg Q6 IV Last administered on 08/11/17 11:32; Admin Dose 10 MG; Start 08/07/17 at 00:00 Hydromorphone HCl (Dilaudid) 1 mg Q3H PRN IV PAIN 7-10 Last administered on 07:53; Admin Dose 1 MG; Start 08/09/17 at 13:00 Morphine Sulfate (morphine) 2 mg Q4H PRN IV PAIN LEVEL 4-6; Start 08/09/17 at 13:00 Bisacodyl (Dulcolax Supp) 10 mg DAILY PRN [place]ST[place] Last administered on 08/09/17 12:26; Admin Dose 10 MG; Start 08/09/17 at 11:30 AARON STACY Aug 11, 2017 16:21
[2017-08-11 19:55] VITALS: BP 130/92; RESP 20
[2017-08-12] MEDS: metroNIDAZOLE 500 MG/NS (PMX) 100 ML IVPB SCH ×5 (00:14→23:08)
[2017-08-12 02:20] VITALS: BP 118/54; RESP 20
[2017-08-12] MEDS: METOCLOPRAMIDE 10 MG INJ IV SCH ×4 (05:38→23:08)
[2017-08-12] MEDS: SOD CHLORIDE 0.9% 1,000 ML IV SCH ×4 (05:38→23:05)
[2017-08-12] MEDS: PANTOPRAZOLE 40 MG INJ IV SCH (05:38)
[2017-08-12 07:19] LABS: BASOPHIL # 0.1 10^3/ul (0.0-0.1); BASOPHILS % 0.5 % (0.0-2.0); EOSINOPHILS # 0.2 10^3/ul (0.0-0.5); EOSINOPHILS % 1.7 % (0.0-7.0); HEMATOCRIT 38.1 % (42.0-52.0); HEMOGLOBIN 12.9 g/dl (14.0-18.0); LYMPHOCYTES # 1.6 10^3/ul (0.8-2.9); LYMPHOCYTES % 17.2 % (15.0-51.0); MEAN CORPUSCULAR HEMOGLOBIN 27.7 pg (29.0-33.0); MEAN CORPUSCULAR HGB CONC 33.9 g/dl (32.0-37.0); MEAN CORPUSCULAR VOLUME 81.9 fl (82.0-101.0); MEAN PLATELET VOLUME 10.1 fl (7.4-10.4); MONOCYTE # 0.8 10^3/ul (0.3-0.9); MONOCYTES % 8.6 % (0.0-11.0); NEUTROPHIL # 6.5 10^3/ul (1.6-7.5); NEUTROPHILS % 71.1 % (39.0-77.0); PLATELET COUNT 246 10^3/UL (140-415); RED BLOOD COUNT 4.65 10^6/ul (4.70-6.10); RED CELL DISTRIBUTION WIDTH 12.9 % (11.5-14.5); WHITE BLOOD COUNT 9.2 10^3/ul (4.8-10.8)
[2017-08-12 07:43] LABS: CALCIUM 9.2 mg/dl (8.4-10.2); CREATININE 0.65 mg/dl (0.61-1.24); MAGNESIUM 1.8 mg/dl (1.7-2.5); PHOSPHORUS 3.8 mg/dl (2.5-4.9); POTASSIUM 3.7 mmol/L (3.5-5.1)
[2017-08-12 08:00] VITALS: BP 124/62; RESP 18
[2017-08-12] MEDS: CIPROFLOXACIN 400MG/D5W 200 ML IVPB SCH ×2 (08:55→20:19)
[2017-08-12] MEDS: FISH OIL 1,000 MG CAP PO SCH ×2 (08:55→20:19)
[2017-08-12] MEDS: SALMETEROL/FLUTICASONE 250/50 INHA INH SCH ×2 (08:55→20:19)
[2017-08-12] MEDS: LISINOPRIL 5 MG TAB PO SCH (08:55)
--- NOTE | 2017-08-12 10:25 | PN ---
Date/Time of Note Date/Time of Note DATE: 08/12/17 TIME: 10:20 Assessment/Plan VTE Prophylaxis VTE Prophylaxis Intervention: SCD's Lines/Catheters IV Catheter Type (from Nrsg): Peripheral IV Urinary Cath still in place: No Assessment/Plan Chief Complaint/Hosp Course Assessment: Acute pancreatitis likely r/t hypertriglyceridemia Gastritis Chronic abdominal pain and diarrhea Status post nasal septoplasty Hypertension Asthma Plan: Change PPi from iv to PO and frequency to twice daily Continue IV hydration Continue clear liquid diet Continue pain management regimen Patient seen in collaboration with Dr. Birch Subjective:: Course reviewed with nursing staff Patient interviewed and examined All labs, imaging and other results reviewed The patient states pain is about the same, will clear liquid diet today with plan to increase tomorrow if pain improves, c/o increased GERD sx, will increase PPI frequency, pt also c/o gas pain will start simethicone PRN. PHYSICAL EXAMINATION: GENERAL: Well developed, well nourished, alert & oriented x 3, in no acute distress SKIN: No lesions, no stigmata chronic liver disease, no evidence of bleeding diathesis LYMPHATIC: No palpable lymphadenopathy. HEAD: Normocephalic, atraumatic, no tenderness. EYES: Pupils equal reactive to light and accommodation, full extraocular movements, sclera clear, non-icteric, no discharge. EARS/NOSE AND THROAT: Ears normal, nose normal, oropharynx normal, oral membranes well hydrated without lesions. NECK: Supple, no masses, thyroid normal, JVP within normal limits, carotids normal without bruits. CHEST: Inspection within normal limits. CARDIOVASCULAR: Heart: Regular rate and rhythm, no murmurs, gallops or rubs. Peripheral pulses present within normal limits, no cyanosis, clubbing or edemas. No pulsatile abdominal mass RESPIRATORY: Lungs clear to auscultation and percussion, no wheezing, no rubs GASTROINTESTINAL AND LIVER: Abdomen: Soft, obese , severe tenderness in left upper and lower quadrant, non-distended, no hernias, no masses, no organomegaly , no ascites, no rebound tenderness, normoactive bowel sounds. Rectal: Deferred. GENITOURINARY: [Male genitalia within normal limits. EXTREMITIES: No cyanosis, clubbing or edema. Problems: Exam/Review of Systems Vital Signs Vitals Vital Signs Date Time Temp Pulse Resp B/P Pulse Ox O2 Delivery O2 Flow Rate FiO2 08/12/17 08:00 98.8 54 18 124/62 98 08/11/17 14:37 21 Intake and Output 08/11/17 08/11/17 08/12/17 14:59 22:59 06:59 Intake Total 1000 ml 1140 ml 1700 ml Balance 1000 ml 1140 ml 1700 ml Results Result Diagram: 08/12/17 0605 08/12/17 0605 Results 24 hrs Laboratory Tests Test 08/12/17 06:05 White Blood Count 9.2 Red Blood Count 4.65 L Hemoglobin 12.9 L Hematocrit 38.1 L Mean Corpuscular Volume 81.9 L Mean Corpuscular Hemoglobin 27.7 L Mean Corpuscular Hemoglobin Concent 33.9 Red Cell Distribution Width 12.9 Platelet Count 246 Mean Platelet Volume 10.1 Neutrophils % 71.1 Lymphocytes % 17.2 Monocytes % 8.6 Eosinophils % 1.7 Basophils % 0.5 Nucleated Red Blood Cells % 0.0 Neutrophils # 6.5 Lymphocytes # 1.6 Monocytes # 0.8 Eosinophils # 0.2 Basophils # 0.1 Nucleated Red Blood Cells # 0.0 Sodium Level 144 Potassium Level 3.7 Chloride Level 107 Carbon Dioxide Level 25 Anion Gap 16 Blood Urea Nitrogen 9 Creatinine 0.65 Glucose Level 98 Calcium Level 9.2 Phosphorus Level 3.8 Magnesium Level 1.8 Medications Medications Current Medications Sodium Chloride (NS) 1,000 ml @ 100 mls/hr Q10H IV Last administered on 05:38; Admin Dose 100 MLS/HR; Start 08/04/17 at 22:36 Ondansetron HCl (Zofran Inj) 4 mg Q6H PRN IV NAUSEA AND/OR VOMITING Last administered on 08/11/17 10:55; Admin Dose 4 MG; Start 08/04/17 at 23:00 Acetaminophen (Tylenol Tab) 650 mg Q6H PRN PO PAIN LEVEL 1-3 OR FEVER; Start 08/04/17 at 23:00 Docusate Sodium (Colace) 100 mg Q12H PRN PO CONSTIPATION; Start 08/04/17 at 23 :00 Bisacodyl (Dulcolax) 5 mg DAILY PRN PO CONSTIPATION Last administered on 19:53; Admin Dose 5 MG; Start 08/04/17 at 23:00 Pantoprazole (Protonix Iv) 40 mg DAILY@06 IV Last administered on 08/12/17 05: 38; Admin Dose 40 MG; Start 08/05/17 at 06:00 Hydrochlorothiazide (Hydrochlorothiazide) 25 mg DAILY PO Last administered on 08/06/17 10:10; Admin Dose 25 MG; Start 08/05/17 at 09:00; Status Future Hold Lisinopril (Zestril) 5 mg DAILY PO Last administered on 08/12/17 08:55; Admin Dose 5 MG; Start 08/05/17 at 09:00 Fish Oil (Fish Oil) 2,000 mg BID PO Last administered on 08/12/17 08:55; Admin Dose 2,000 MG; Start 08/05/17 at 09:00 Salmeterol Xinafoate/ Fluticasone 1 inh 1 inh BID INH Last administered on 08/12 08:55; Admin Dose 1 INH; Start 08/05/17 at 21:00 Ciprofloxacin/ Dextrose 200 ml @ 200 mls/hr Q12 IVPB Last administered on 08/12 08:55; Admin Dose 200 MLS/HR; Start 08/06/17 at 12:00 Metronidazole (Flagyl 500 Mg (Pmx)) 100 ml @ 100 mls/hr Q6 IVPB Last administered on 08/12/17 05:38; Admin Dose 100 MLS/HR; Start 08/06/17 at 12:00 Hydralazine HCl (Apresoline) 10 mg Q6H PRN IV SBP >160; Start 08/06/17 at 12: 30 Metoclopramide HCl (Reglan) 10 mg Q6 IV Last administered on 08/12/17 05:38; Admin Dose 10 MG; Start 08/07/17 at 00:00 Hydromorphone HCl (Dilaudid) 1 mg Q3H PRN IV PAIN 7-10 Last administered on 07:53; Admin Dose 1 MG; Start 08/09/17 at 13:00 Morphine Sulfate (morphine) 2 mg Q4H PRN IV PAIN LEVEL 4-6; Start 08/09/17 at 13:00 Bisacodyl (Dulcolax Supp) 10 mg DAILY PRN [place] CONSTIPATION Last administered on 08/09/17 12:26; Admin Dose 10 MG; Start 08/09/17 at 11:30 TAMMY MONSON Aug 12, 2017 10:25
[2017-08-12 14:00] VITALS: BP 132/64; RESP 20
--- NOTE | 2017-08-12 15:13 | PN ---
Date/Time of Note Date/Time of Note DATE: 08/12/17 TIME: 15:12 Assessment/Plan VTE Prophylaxis VTE Prophylaxis Intervention: ambulation, SCD's Lines/Catheters IV Catheter Type (from Nrsg): Peripheral IV Urinary Cath still in place: No Assessment/Plan Chief Complaint/Hosp Course s: 12.5 mildly better abdominal pain 12.6 abdominal pain improved, however still nauseated at times o: Physical exam General: Patient is laying in bed and answers questions appropriately Mentation: Patient is alert and oriented 4, Head: Normocephalic atraumatic Eyes: EOMI, pupils reactive to light Neck: Supple, nontender, midline Respiratory: Clear to auscultation bilaterally Cardiovascular: regular rate, no obvious murmurs Gastrointestinal: mildly tender to palpation, bowel sounds heard. Neurological: Moves all extremities spontaneously Skin: No new skin lesions Assessment/Plan 1. Acute pancreatitis -LFTS trending down and lipase improving. GI following, -hx hypertriglyceridemia , lower now - 2. s/p nasal septoplasty 08/04 - Continue current postop care. 3. Hypertension - BP stable - PRN for now 4. asthma - Continue bronchodilator PRN 5. gastritis - Continue PPI 6. Constipation - adjusted pain medications since most likely contributing to constipation - Will give suppository since unable to tolerate PO 7. Disposition - Continue monitoring in Med/Surg - clear liquid diet, monitor abdominal pain. dc when no pain and able to tolerate PO Problems: Exam/Review of Systems Vital Signs Vitals Vital Signs Date Time Temp Pulse Resp B/P Pulse Ox O2 Delivery O2 Flow Rate FiO2 08/12/17 08:00 98.8 54 18 124/62 98 08/11/17 14:37 21 Intake and Output 08/11/17 08/11/17 08/12/17 15:00 23:00 07:00 Intake Total 1000 ml 1140 ml 1700 ml Balance 1000 ml 1140 ml 1700 ml Results Result Diagram: 08/12/17 0605 08/12/17 06 Results 24 hrs Laboratory Tests Test 08/12/17 06:05 White Blood Count 9.2 Red Blood Count 4.65 L Hemoglobin 12.9 L Hematocrit 38.1 L Mean Corpuscular Volume 81.9 L Mean Corpuscular Hemoglobin 27.7 L Mean Corpuscular Hemoglobin Concent 33.9 Red Cell Distribution Width 12.9 Platelet Count 246 Mean Platelet Volume 10.1 Neutrophils % 71.1 Lymphocytes % 17.2 Monocytes % 8.6 Eosinophils % 1.7 Basophils % 0.5 Nucleated Red Blood Cells % 0.0 Neutrophils # 6.5 Lymphocytes # 1.6 Monocytes # 0.8 Eosinophils # 0.2 Basophils # 0.1 Nucleated Red Blood Cells # 0.0 Sodium Level 144 Potassium Level 3.7 Chloride Level 107 Carbon Dioxide Level 25 Anion Gap 16 Blood Urea Nitrogen 9 Creatinine 0.65 Glucose Level 98 Calcium Level 9.2 Phosphorus Level 3.8 Magnesium Level 1.8 Medications Medications Current Medications Sodium Chloride (NS) 1,000 ml @ 100 mls/hr Q10H IV Last administered on 12:22; Admin Dose 100 MLS/HR; Start 08/04/17 at 22:36 Ondansetron HCl (Zofran Inj) 4 mg Q6H PRN IV NAUSEA AND/OR VOMITING Last administered on 08/11/17 10:55; Admin Dose 4 MG; Start 08/04/17 at 23:00 Acetaminophen (Tylenol Tab) 650 mg Q6H PRN PO PAIN LEVEL 1-3 OR FEVER; Start 08/04/17 at 23:00 Docusate Sodium (Colace) 100 mg Q12H PRN PO CONSTIPATION; Start 08/04/17 at 23 :00 Bisacodyl (Dulcolax) 5 mg DAILY PRN PO CONSTIPATION Last administered on 19:53; Admin Dose 5 MG; Start 08/04/17 at 23:00 Hydrochlorothiazide (Hydrochlorothiazide) 25 mg DAILY PO Last administered on 08/06/17 10:10; Admin Dose 25 MG; Start 08/05/17 at 09:00; Status Future Hold Lisinopril (Zestril) 5 mg DAILY PO Last administered on 08/12/17 08:55; Admin Dose 5 MG; Start 08/05/17 at 09:00 Fish Oil (Fish Oil) 2,000 mg BID PO Last administered on 08/12/17 08:55; Admin Dose 2,000 MG; Start 08/05/17 at 09:00 Salmeterol Xinafoate/ Fluticasone 1 inh 1 inh BID INH Last administered on 08/12 08:55; Admin Dose 1 INH; Start 08/05/17 at 21:00 Ciprofloxacin/ Dextrose 200 ml @ 200 mls/hr Q12 IVPB Last administered on 08/12 08:55; Admin Dose 200 MLS/HR; Start 08/06/17 at 12:00 Metronidazole (Flagyl 500 Mg (Pmx)) 100 ml @ 100 mls/hr Q6 IVPB Last administered on 08/12/17 12:22; Admin Dose 100 MLS/HR; Start 08/06/17 at 12:00 Hydralazine HCl (Apresoline) 10 mg Q6H PRN IV SBP >160; Start 08/06/17 at 12: 30 Metoclopramide HCl (Reglan) 10 mg Q6 IV Last administered on 08/12/17 12:22; Admin Dose 10 MG; Start 08/07/17 at 00:00 Hydromorphone HCl (Dilaudid) 1 mg Q3H PRN IV PAIN 7-10 Last administered on 07:53; Admin Dose 1 MG; Start 08/09/17 at 13:00 Morphine Sulfate (morphine) 2 mg Q4H PRN IV PAIN LEVEL 4-6; Start 08/09/17 at 13:00 Bisacodyl (Dulcolax Supp) 10 mg DAILY PRN [place] CONSTIPATION Last administered on 08/09/17 12:26; Admin Dose 10 MG; Start 08/09/17 at 11:30 Pantoprazole (Protonix Tab) 40 mg BID@06,18 PO ; Start 08/12/17 at 18:00 Simethicone (Mylicon) 80 mg QID PRN GTB DISTENSION/GAS/BLOATING; Start at 10:30 AARON STACY Aug 12, 2017 15:13
[2017-08-12] MEDS: PANTOPRAZOLE (EC) 40 MG TAB PO SCH (17:28)
[2017-08-12 20:00] VITALS: BP 136/84; RESP 20
[2017-08-13 02:00] VITALS: BP 124/82; RESP 20
[2017-08-13] MEDS: PANTOPRAZOLE (EC) 40 MG TAB PO SCH ×2 (05:10→18:21)
[2017-08-13] MEDS: metroNIDAZOLE 500 MG/NS (PMX) 100 ML IVPB SCH ×3 (05:10→18:20)
[2017-08-13] MEDS: METOCLOPRAMIDE 10 MG INJ IV SCH ×3 (05:10→18:20)
[2017-08-13 05:57] LABS: BASOPHIL # 0.1 10^3/ul (0.0-0.1); BASOPHILS % 0.7 % (0.0-2.0); EOSINOPHILS # 0.2 10^3/ul (0.0-0.5); HEMATOCRIT 38.9 % (42.0-52.0); HEMOGLOBIN 13.2 g/dl (14.0-18.0); LYMPHOCYTES % 26.2 % (15.0-51.0); MEAN CORPUSCULAR HEMOGLOBIN 27.7 pg (29.0-33.0); MEAN CORPUSCULAR HGB CONC 33.9 g/dl (32.0-37.0); MEAN CORPUSCULAR VOLUME 81.7 fl (82.0-101.0); MEAN PLATELET VOLUME 9.7 fl (7.4-10.4); MONOCYTE # 0.6 10^3/ul (0.3-0.9); MONOCYTES % 8.2 % (0.0-11.0); NEUTROPHIL # 4.6 10^3/ul (1.6-7.5); NEUTROPHILS % 62.4 % (39.0-77.0); PLATELET COUNT 246 10^3/UL (140-415); RED BLOOD COUNT 4.76 10^6/ul (4.70-6.10); RED CELL DISTRIBUTION WIDTH 12.6 % (11.5-14.5); WHITE BLOOD COUNT 7.4 10^3/ul (4.8-10.8)
[2017-08-13 06:15] LABS: ALBUMIN 3.4 g/dl (3.3-4.9); ALBUMIN/GLOBULIN RATIO 0.94; BILIRUBIN,INDIRECT 0.3 mg/dl (0-1.1); BILIRUBIN,TOTAL 0.3 mg/dl (0.2-1.3); CALCIUM 9.3 mg/dl (8.4-10.2); CREATININE 0.62 mg/dl (0.61-1.24); POTASSIUM 3.8 mmol/L (3.5-5.1)
[2017-08-13 08:00] VITALS: BP 112/72; RESP 18
[2017-08-13] MEDS: FISH OIL 1,000 MG CAP PO SCH ×2 (08:17→21:00)
[2017-08-13] MEDS: CIPROFLOXACIN 400MG/D5W 200 ML IVPB SCH ×2 (08:17→21:30)
[2017-08-13] MEDS: SALMETEROL/FLUTICASONE 250/50 INHA INH SCH ×2 (08:17→21:30)
[2017-08-13] MEDS: LISINOPRIL 5 MG TAB PO SCH (08:18)
--- NOTE | 2017-08-13 09:30 | PN ---
Date/Time of Note Date/Time of Note DATE: 08/13/17 TIME: 09:24 Assessment/Plan VTE Prophylaxis VTE Prophylaxis Intervention: SCD's Lines/Catheters [facility] Type [facility]): Peripheral IV Urinary Cath still in place: No Assessment/Plan Chief Complaint/Hosp Course Assessment: Acute pancreatitis likely r/t hypertriglyceridemia Gastritis Chronic abdominal pain and diarrhea Status post nasal septoplasty Hypertension Asthma Plan: Continue PPI Continue clear liquid diet Plan for colonoscopy tomorrow Discussed risks and benefits with patient who verbalized understanding Patient seen in collaboration with Dr. Birch Subjective:: Course reviewed with nursing staff Patient interviewed and examined All labs, imaging and other results reviewed The patient now denies pain only c/o mild discomfort, however he is now c/o diarrhea watery to loose stools, patient was told he had colitis in the past. pt also c/o cramping with loose stools. Further work-up in needed and will plan for colonoscopy tomorrow. PHYSICAL EXAMINATION: GENERAL: Well developed, well nourished, alert & oriented x 3, in no acute distress SKIN: No lesions, no stigmata chronic liver disease, no evidence of bleeding diathesis LYMPHATIC: No palpable lymphadenopathy. HEAD: Normocephalic, atraumatic, no tenderness. EYES: Pupils equal reactive to light and accommodation, full extraocular movements, sclera clear, non-icteric, no discharge. EARS/NOSE AND THROAT: Ears normal, nose normal, oropharynx normal, oral membranes well hydrated without lesions. NECK: Supple, no masses, thyroid normal, JVP within normal limits, carotids normal without bruits. CHEST: Inspection within normal limits. CARDIOVASCULAR: Heart: Regular rate and rhythm, no murmurs, gallops or rubs. Peripheral pulses present within normal limits, no cyanosis, clubbing or edemas. No pulsatile abdominal mass RESPIRATORY: Lungs clear to auscultation and percussion, no wheezing, no rubs GASTROINTESTINAL AND LIVER: Abdomen: Soft, obese , severe tenderness in left upper and lower quadrant, non-distended, no hernias, no masses, no organomegaly , no ascites, no rebound tenderness, normoactive bowel sounds. Rectal: Deferred. GENITOURINARY: [Male genitalia within normal limits. EXTREMITIES: No cyanosis, clubbing or edema. Problems: Exam/Review of Systems Vital Signs Vitals Vital Signs Date Time Temp Pulse Resp B/P Pulse Ox O2 Delivery O2 Flow Rate FiO2 08/13/17 08:00 98.8 84 18 112/72 96 08/11/17 14:37 21 Intake and Output 08/12/17 08/12/17 08/13/17 15:00 23:00 07:00 Intake Total 800 ml 2400 ml 820 ml Balance 800 ml 2400 ml 820 ml Results Result Diagram: 08/13/17 0530 08/13/17 0530 Results 24 hrs Laboratory Tests Test 08/13/17 05:30 White Blood Count 7.4 Red Blood Count 4.76 Hemoglobin 13.2 L Hematocrit 38.9 L Mean Corpuscular Volume 81.7 L Mean Corpuscular Hemoglobin 27.7 L Mean Corpuscular Hemoglobin Concent 33.9 Red Cell Distribution Width 12.6 Platelet Count 246 Mean Platelet Volume 9.7 Neutrophils % 62.4 Lymphocytes % 26.2 Monocytes % 8.2 Eosinophils % 2.0 Basophils % 0.7 Nucleated Red Blood Cells % 0.0 Neutrophils # 4.6 Lymphocytes # 2.0 Monocytes # 0.6 Eosinophils # 0.2 Basophils # 0.1 Nucleated Red Blood Cells # 0.0 Sodium Level 145 H Potassium Level 3.8 Chloride Level 107 Carbon Dioxide Level 28 Anion Gap 14 Blood Urea Nitrogen 7 Creatinine 0.62 Glucose Level 103 Calcium Level 9.3 Total Bilirubin 0.3 Direct Bilirubin 0.00 Indirect Bilirubin 0.3 Aspartate Amino Transf (AST/SGOT) 31 Alanine Aminotransferase (ALT/SGPT) 91 H Alkaline Phosphatase 75 Total Protein 7.0 Albumin 3.4 Globulin 3.60 H Albumin/Globulin Ratio 0.94 Medications Medications Current Medications Sodium Chloride (NS) 1,000 ml @ 100 mls/hr Q10H IV Last administered on 23:05; Admin Dose 100 MLS/HR; Start 08/04/17 at 22:36 Ondansetron HCl (Zofran Inj) 4 mg Q6H PRN IV NAUSEA AND/OR VOMITING Last administered on 08/11/17 10:55; Admin Dose 4 MG; Start 08/04/17 at 23:00 Acetaminophen (Tylenol Tab) 650 mg Q6H PRN PO PAIN LEVEL 1-3 OR FEVER; Start 08/04/17 at 23:00 Docusate Sodium (Colace) 100 mg Q12H PRN PO CONSTIPATION; Start 08/04/17 at 23 :00 Bisacodyl (Dulcolax) 5 mg DAILY PRN PO CONSTIPATION Last administered on 19:53; Admin Dose 5 MG; Start 08/04/17 at 23:00 Hydrochlorothiazide (Hydrochlorothiazide) 25 mg DAILY PO Last administered on 08/06/17 10:10; Admin Dose 25 MG; Start 08/05/17 at 09:00; Status Future Hold Lisinopril (Zestril) 5 mg DAILY PO Last administered on 08/13/17 08:18; Admin Dose 5 MG; Start 08/05/17 at 09:00 Fish Oil (Fish Oil) 2,000 mg BID PO Last administered on 08/12/17 20:19; Admin Dose 2,000 MG; Start 08/05/17 at 09:00 Salmeterol Xinafoate/ Fluticasone 1 inh 1 inh BID INH Last administered on 08/13 08:17; Admin Dose 1 INH; Start 08/05/17 at 21:00 Ciprofloxacin/ Dextrose 200 ml @ 200 mls/hr Q12 IVPB Last administered on 08/13 08:17; Admin Dose 200 MLS/HR; Start 08/06/17 at 12:00 Metronidazole (Flagyl 500 Mg (Pmx)) 100 ml @ 100 mls/hr Q6 IVPB Last administered on 08/13/17 05:10; Admin Dose 100 MLS/HR; Start 08/06/17 at 12:00 Hydralazine HCl (Apresoline) 10 mg Q6H PRN IV SBP >160; Start 08/06/17 at 12: 30 Metoclopramide HCl (Reglan) 10 mg Q6 IV Last administered on 08/13/17 05:10; Admin Dose 10 MG; Start 08/07/17 at 00:00 Hydromorphone HCl (Dilaudid) 1 mg Q3H PRN IV PAIN 7-10 Last administered on 07:53; Admin Dose 1 MG; Start 08/09/17 at 13:00 Morphine Sulfate (morphine) 2 mg Q4H PRN IV PAIN LEVEL 4-6; Start 08/09/17 at 13:00 Bisacodyl (Dulcolax Supp) 10 mg DAILY PRN [place] CONSTIPATION Last administered on 08/09/17 12:26; Admin Dose 10 MG; Start 08/09/17 at 11:30 Pantoprazole (Protonix Tab) 40 mg BID@06,18 PO Last administered on 08/13/17 05:10; Admin Dose 40 MG; Start 08/12/17 at 18:00 Simethicone (Mylicon) 80 mg QID PRN GTB DISTENSION/GAS/BLOATING; Start at 10:30 TAMMY MONSON Aug 13, 2017 09:30
[2017-08-13] MEDS ORDERED: BISACODYL (EC) 5 MG TAB PO ONE (10:30)
[2017-08-13 14:00] VITALS: BP 129/51; RESP 18
--- NOTE | 2017-08-13 14:17 | PN ---
Date/Time of Note Date/Time of Note DATE: 08/13/17 TIME: 14:15 Assessment/Plan VTE Prophylaxis VTE Prophylaxis Intervention: ambulation, SCD's Lines/Catheters IV Catheter Type (from Nrsg): Peripheral IV Urinary Cath still in place: No Assessment/Plan Chief Complaint/Hosp Course s: 12.5 mildly better abdominal pain 12.6 abdominal pain improved, however still nauseated at times 12.7 abdominal pain resolved o: Physical exam General: Patient is laying in bed and answers questions appropriately Mentation: Patient is alert and oriented 4, Head: Normocephalic atraumatic Eyes: EOMI, pupils reactive to light Neck: Supple, nontender, midline Respiratory: Clear to auscultation bilaterally Cardiovascular: regular rate, no obvious murmurs Gastrointestinal: mildly tender to palpation, bowel sounds heard. Neurological: Moves all extremities spontaneously Skin: No new skin lesions Assessment/Plan 1. Acute pancreatitis -LFTS trending down and lipase improving. GI following, -hx hypertriglyceridemia , lower now -resolving 2. s/p nasal septoplasty 08/04 - Continue current postop care. 3. Hypertension - BP stable - PRN for now 4. asthma - Continue bronchodilator PRN 5. gastritis - Continue PPI 6. Constipation - adjusted pain medications since most likely contributing to constipation - Will give suppository since unable to tolerate PO 7. Disposition - Continue monitoring in Med/Surg - advance diet as tolerating, colonoscopy tomorrow Problems: Exam/Review of Systems Vital Signs Vitals Vital Signs Date Time Temp Pulse Resp B/P Pulse Ox O2 Delivery O2 Flow Rate FiO2 08/13/17 08:00 98.8 84 18 112/72 96 08/11/17 14:37 21 Intake and Output 08/12/17 08/12/17 08/13/17 15:00 23:00 07:00 Intake Total 800 ml 2400 ml 820 ml Balance 800 ml 2400 ml 820 ml Results Result Diagram: 08/13/17 0530 08/13/17 0530 Results 24 hrs Laboratory Tests Test 08/13/17 05:30 White Blood Count 7.4 Red Blood Count 4.76 Hemoglobin 13.2 L Hematocrit 38.9 L Mean Corpuscular Volume 81.7 L Mean Corpuscular Hemoglobin 27.7 L Mean Corpuscular Hemoglobin Concent 33.9 Red Cell Distribution Width 12.6 Platelet Count 246 Mean Platelet Volume 9.7 Neutrophils % 62.4 Lymphocytes % 26.2 Monocytes % 8.2 Eosinophils % 2.0 Basophils % 0.7 Nucleated Red Blood Cells % 0.0 Neutrophils # 4.6 Lymphocytes # 2.0 Monocytes # 0.6 Eosinophils # 0.2 Basophils # 0.1 Nucleated Red Blood Cells # 0.0 Sodium Level 145 H Potassium Level 3.8 Chloride Level 107 Carbon Dioxide Level 28 Anion Gap 14 Blood Urea Nitrogen 7 Creatinine 0.62 Glucose Level 103 Calcium Level 9.3 Total Bilirubin 0.3 Direct Bilirubin 0.00 Indirect Bilirubin 0.3 Aspartate Amino Transf (AST/SGOT) 31 Alanine Aminotransferase (ALT/SGPT) 91 H Alkaline Phosphatase 75 Total Protein 7.0 Albumin 3.4 Globulin 3.60 H Albumin/Globulin Ratio 0.94 Medications Medications Current Medications Sodium Chloride (NS) 1,000 ml @ 100 mls/hr Q10H IV Last administered on 23:05; Admin Dose 100 MLS/HR; Start 08/04/17 at 22:36 Ondansetron HCl (Zofran Inj) 4 mg Q6H PRN IV NAUSEA AND/OR VOMITING Last administered on 08/11/17 10:55; Admin Dose 4 MG; Start 08/04/17 at 23:00 Acetaminophen (Tylenol Tab) 650 mg Q6H PRN PO PAIN LEVEL 1-3 OR FEVER; Start 08/04/17 at 23:00 Docusate Sodium (Colace) 100 mg Q12H PRN PO CONSTIPATION; Start 08/04/17 at 23 :00 Bisacodyl (Dulcolax) 5 mg DAILY PRN PO CONSTIPATION Last administered on 19:53; Admin Dose 5 MG; Start 08/04/17 at 23:00 Hydrochlorothiazide (Hydrochlorothiazide) 25 mg DAILY PO Last administered on 08/06/17 10:10; Admin Dose 25 MG; Start 08/05/17 at 09:00; Status Future Hold Lisinopril (Zestril) 5 mg DAILY PO Last administered on 08/13/17 08:18; Admin Dose 5 MG; Start 08/05/17 at 09:00 Fish Oil (Fish Oil) 2,000 mg BID PO Last administered on 08/12/17 20:19; Admin Dose 2,000 MG; Start 08/05/17 at 09:00 Salmeterol Xinafoate/ Fluticasone 1 inh 1 inh BID INH Last administered on 08/13 08:17; Admin Dose 1 INH; Start 08/05/17 at 21:00 Ciprofloxacin/ Dextrose 200 ml @ 200 mls/hr Q12 IVPB Last administered on 08/13 08:17; Admin Dose 200 MLS/HR; Start 08/06/17 at 12:00 Metronidazole (Flagyl 500 Mg (Pmx)) 100 ml @ 100 mls/hr Q6 IVPB Last administered on 08/13/17 11:24; Admin Dose 100 MLS/HR; Start 08/06/17 at 12:00 Hydralazine HCl (Apresoline) 10 mg Q6H PRN IV SBP >160; Start 08/06/17 at 12: 30 Metoclopramide HCl (Reglan) 10 mg Q6 IV Last administered on 08/13/17 11:24; Admin Dose 10 MG; Start 08/07/17 at 00:00 Hydromorphone HCl (Dilaudid) 1 mg Q3H PRN IV PAIN 7-10 Last administered on 07:53; Admin Dose 1 MG; Start 08/09/17 at 13:00 Morphine Sulfate (morphine) 2 mg Q4H PRN IV PAIN LEVEL 4-6; Start 08/09/17 at 13:00 Bisacodyl (Dulcolax Supp) 10 mg DAILY PRN [place] CONSTIPATION Last administered on 08/09/17 12:26; Admin Dose 10 MG; Start 08/09/17 at 11:30 Pantoprazole (Protonix Tab) 40 mg BID@06,18 PO Last administered on 08/13/17 05:10; Admin Dose 40 MG; Start 08/12/17 at 18:00 Simethicone (Mylicon) 80 mg QID PRN GTB DISTENSION/GAS/BLOATING; Start at 10:30 Magnesium Citrate (Citroma) 300 ml ONCE ONCE PO ; Start 08/13/17 at 17:30; Stop 08/13/17 at 17:31 Polyethylene Glycol (Miralax) 119 gm ONCE ONCE PO ; Start 08/13/17 at 18:30; Stop 08/13/17 at 18:31 AARON STACY Aug 13, 2017 14:17
[2017-08-13] MEDS: SOD CHLORIDE 0.45% 1,000 ML IV SCH (15:39)
[2017-08-13] MEDS ORDERED: MAGNESIUM CITRATE 300 ML BTL PO ONE (17:30)
[2017-08-13] MEDS ORDERED: POLYETHYLENE GLYCOL 3350 119 GM POWDER PO ONE (18:30)
[2017-08-13 20:00] VITALS: BP 135/80; RESP 19
[2017-08-14] VITALS (11 sets, daily range): BP systolic 106–132; BP diastolic 66–82; PULSE 62–64; RESP 16–19
[2017-08-14] MEDS: metroNIDAZOLE 500 MG/NS (PMX) 100 ML IVPB SCH ×2 (00:23→05:00)
[2017-08-14] MEDS: SOD CHLORIDE 0.45% 1,000 ML IV SCH ×3 (03:50→17:10)
[2017-08-14] MEDS: PANTOPRAZOLE (EC) 40 MG TAB PO SCH ×2 (04:58→17:43)
[2017-08-14] MEDS: METOCLOPRAMIDE 10 MG INJ IV SCH ×5 (05:00→23:49)
[2017-08-14] MEDS ORDERED: POLYETHYLENE GLYCOL 3350 119 GM POWDER PO ONE ×2 (06:00→10:00)
[2017-08-14 07:14] LABS: BASOPHILS % 0.4 % (0.0-2.0); EOSINOPHILS # 0.2 10^3/ul (0.0-0.5); EOSINOPHILS % 2.2 % (0.0-7.0); HEMATOCRIT 41.7 % (42.0-52.0); HEMOGLOBIN 13.7 g/dl (14.0-18.0); LYMPHOCYTES % 29.3 % (15.0-51.0); MEAN CORPUSCULAR HGB CONC 32.9 g/dl (32.0-37.0); MEAN CORPUSCULAR VOLUME 82.1 fl (82.0-101.0); MONOCYTE # 0.5 10^3/ul (0.3-0.9); MONOCYTES % 7.7 % (0.0-11.0); NEUTROPHILS % 59.7 % (39.0-77.0); PLATELET COUNT 267 10^3/UL (140-415); RED BLOOD COUNT 5.08 10^6/ul (4.70-6.10); RED CELL DISTRIBUTION WIDTH 12.6 % (11.5-14.5); WHITE BLOOD COUNT 6.8 10^3/ul (4.8-10.8)
[2017-08-14 07:35] LABS: CALCIUM 9.2 mg/dl (8.4-10.2); CREATININE 0.73 mg/dl (0.61-1.24); MAGNESIUM 2.2 mg/dl (1.7-2.5); PHOSPHORUS 4.7 mg/dl (2.5-4.9); POTASSIUM 4.1 mmol/L (3.5-5.1)
[2017-08-14] MEDS ORDERED: BISACODYL (EC) 5 MG TAB PO ONE (08:00)
[2017-08-14] MEDS: SALMETEROL/FLUTICASONE 250/50 INHA INH SCH ×2 (08:48→21:08)
[2017-08-14] MEDS: LISINOPRIL 5 MG TAB PO SCH (08:48)
[2017-08-14] MEDS: CIPROFLOXACIN 400MG/D5W 200 ML IVPB SCH (08:48)
[2017-08-14] MEDS: FISH OIL 1,000 MG CAP PO SCH ×2 (08:57→21:00)
[2017-08-14] MEDS: ONDANSETRON 4 MG INJ IV PRN (10:02)
[2017-08-14] MEDS ORDERED: POTASSIUM CHLORIDE (SR) 10 MEQ TAB PO ONE (12:30)
[2017-08-14] MEDS: KETOCONAZOLE 2% 15 GM CR TOP SCH ×2 (13:00→21:08)
--- NOTE | 2017-08-14 15:11 | PN ---
Date/Time of Note Date/Time of Note DATE: 08/14/17 TIME: 15:10 Assessment/Plan VTE Prophylaxis VTE Prophylaxis Intervention: SCD's Lines/Catheters IV Catheter Type (from Nrs): Peripheral IV Urinary Cath still in place: No Assessment/Plan Chief Complaint/Hosp Course s: 12.5 mildly better abdominal pain 12.6 abdominal pain improved, however still nauseated at times 12.7 abdominal pain resolved 12.8 no abdominal pain o: Physical exam General: Patient is laying in bed and answers questions appropriately Mentation: Patient is alert and oriented 4, Head: Normocephalic atraumatic Eyes: EOMI, pupils reactive to light Neck: Supple, nontender, midline Respiratory: Clear to auscultation bilaterally Cardiovascular: regular rate, no obvious murmurs Gastrointestinal: mildly tender to palpation, bowel sounds heard. Neurological: Moves all extremities spontaneously Skin: No new skin lesions Assessment/Plan 1. Acute pancreatitis -LFTS trending down and lipase improving. GI following, -hx hypertriglyceridemia , lower now -resolving 2. s/p nasal septoplasty 08/04 - Continue current postop care. 3. Hypertension - BP stable - PRN for now 4. asthma - Continue bronchodilator PRN 5. gastritis - Continue PPI 6. Constipation - as needed laxatives 7. Disposition - Continue monitoring in Med/Surg - advance diet as tolerating, colonoscopy today for gastritis Problems: Exam/Review of Systems Vital Signs Vitals Vital Signs Date Time Temp Pulse Resp B/P Pulse Ox O2 Delivery O2 Flow Rate FiO2 08/14/17 14:16 98.1 66 17 111/77 99 08/11/17 14:37 21 Intake and Output 08/13/17 08/13/17 08/14/17 14:59 22:59 06:59 Intake Total 300 ml 2265 ml 700 ml Balance 300 ml 2265 ml 700 ml Results Result Diagram: 08/14/17 0606 08/14/17 0606 Results 24 hrs Laboratory Tests Test 08/14/17 06:06 White Blood Count 6.8 Red Blood Count 5.08 Hemoglobin 13.7 L Hematocrit 41.7 L Mean Corpuscular Volume 82.1 Mean Corpuscular Hemoglobin 27.0 L Mean Corpuscular Hemoglobin Concent 32.9 Red Cell Distribution Width 12.6 Platelet Count 267 Mean Platelet Volume 10.0 Neutrophils % 59.7 Lymphocytes % 29.3 Monocytes % 7.7 Eosinophils % 2.2 Basophils % 0.4 Nucleated Red Blood Cells % 0.0 Neutrophils # 4.0 Lymphocytes # 2.0 Monocytes # 0.5 Eosinophils # 0.2 Basophils # 0.0 Nucleated Red Blood Cells # 0.0 Sodium Level 143 Potassium Level 4.1 Chloride Level 106 Carbon Dioxide Level 26 Anion Gap 15 Blood Urea Nitrogen 7 Creatinine 0.73 Glucose Level 101 Calcium Level 9.2 Phosphorus Level 4.7 Magnesium Level 2.2 Medications Medications Current Medications Ondansetron HCl (Zofran Inj) 4 mg Q6H PRN IV NAUSEA AND/OR VOMITING Last administered on 08/14/17 10:02; Admin Dose 4 MG; Start 08/04/17 at 23:00 Acetaminophen (Tylenol Tab) 650 mg Q6H PRN PO PAIN LEVEL 1-3 OR FEVER; Start 08/04/17 at 23:00 Docusate Sodium (Colace) 100 mg Q12H PRN PO CONSTIPATION; Start 08/04/17 at 23 :00 Bisacodyl (Dulcolax) 5 mg DAILY PRN PO CONSTIPATION Last administered on 19:53; Admin Dose 5 MG; Start 08/04/17 at 23:00 Hydrochlorothiazide (Hydrochlorothiazide) 25 mg DAILY PO Last administered on 08/06/17 10:10; Admin Dose 25 MG; Start 08/05/17 at 09:00; Status Future Hold Lisinopril (Zestril) 5 mg DAILY PO Last administered on 08/14/17 08:48; Admin Dose 5 MG; Start 08/05/17 at 09:00 Fish Oil (Fish Oil) 2,000 mg BID PO Last administered on 08/12/17 20:19; Admin Dose 2,000 MG; Start 08/05/17 at 09:00 Salmeterol Xinafoate/ Fluticasone (Advair 250/50 Diskus) 1 inh BID INH Last administered on 08/14/17 08:48; Admin Dose 1 INH; Start 08/05/17 at 21:00 Hydralazine HCl (Apresoline) 10 mg Q6H PRN IV SBP >160; Start 08/06/17 at 12: 30 Metoclopramide HCl (Reglan) 10 mg Q6 IV Last administered on 08/14/17 12:20; Admin Dose 10 MG; Start 08/07/17 at 00:00 Hydromorphone HCl (Dilaudid) 1 mg Q3H PRN IV PAIN 7-10 Last administered on 07:53; Admin Dose 1 MG; Start 08/09/17 at 13:00 Morphine Sulfate (morphine) 2 mg Q4H PRN IV PAIN LEVEL 4-6; Start 08/09/17 at 13:00 Bisacodyl (Dulcolax Supp) 10 mg DAILY PRN [place] CONSTIPATION Last administered on 08/09/17 12:26; Admin Dose 10 MG; Start 08/09/17 at 11:30 Pantoprazole (Protonix Tab) 40 mg BID@06,18 PO Last administered on 08/13/17 18:21; Admin Dose 40 MG; Start 08/12/17 at 18:00 Simethicone 80 mg 80 mg QID PRN GTB DISTENSION/GAS/BLOATING; Start 08/12/17 at 10:30 Sodium Chloride (1/2 NS) 1,000 ml @ 75 mls/hr [id number] IV Last administered on 08/13/17 15:39; Admin Dose 75 MLS/HR; Start 08/13/17 at 14:30 Ketoconazole (Nizoral Cr) 1 applic BID TOP ; Start 08/14/17 at 13:00 AARON STACY Aug 14, 2017 15:11
[2017-08-14] MEDS ORDERED: LIDOCAINE 2% (SDV) 5 ML INJ ONE (16:13)
[2017-08-14] MEDS ORDERED: MIDAZOLAM 1 MG/ML 2 ML INJ ONE (16:13)
[2017-08-14] MEDS ORDERED: PROPOFOL 20 ML ONE (16:13)
--- NOTE | 2017-08-14 16:29 | OPPN ---
Date/Time of Note Date/Time of Note DATE: 08/14/17 TIME: 16:25 Proc Note GI Procedure Date 08/14/17 Indication: other (Unexplained diarrhea) Pre-procedure Diagnosis Unexplained diarrhea Post-procedure Diagnosis Impression: Normal colonic mucosa to cecum. Random biopsies obtained to rule out microscopic, lymphocytic or collagenous colitis. Normal terminal ileum. Random biopsies obtained. Moderate-sized internal hemorrhoids. Plan: High fiber lactose-free diet [Review pathology] [Screening colonoscopy at age 50 . Procedure Performed: Colonoscopy (Plus biopsies. Enteroscopy with biopsies) Surgeon RCAHEL JACQUES MD See signature line Poker Manager none Anesthesia Type: MAC Anesthesiologist: JEM GONZALEZ DO Tourniquet Time none EBL none Transfusion required none Biopsy 1: Terminal ileum Biopsy 2: Right colon Biopsy 3: Left colon Grafts/Implants none Tubes/Drains none Complication(s) none Disposition: PACU Procedure Description After informed consent, with the patient/relatives understanding the procedure, its indications and potential risks and complications, including but not limited to: Allergic reaction, bleeding, perforation, infection, and after all pertinent questions were answered to the patient's satisfaction, the patient/ relatives signed the witnessed informed consent. Following this, premedication was administered slowly IV push under careful cardiovascular and respiratory monitoring with pulse [employer], automatic blood pressure, and visitor services representative. Once the sedative effect was achieved, the patient was placed in the left lateral decubitus position, digital rectal examination was performed. The colonoscope was then introduced and advanced under visual control throughout all segments of the colon including: the rectum, sigmoid, descending colon, splenic flexure, transverse colon, hepatic flexure, ascending colon and finally reaching the cecum which was clearly identified by transillumination, finger indentation and the ileocecal valve. The terminal ileum was entered and examined. Careful examination of the mucosa of the lower gastrointestinal tract both on insertion as well as withdrawal of the instrument disclosed the following findings: PREPARATION QUALITY: [Adequate], RECTAL EXAM: The anorectal area was visualized examined and digital rectal examination performed with the following findings: No evidence of perirectal disease, no masses. COLONIC MUCOSA: The mucosa of all segments of the colon and terminal ileum was carefully examined and showed the following findings: the examined mucosa appears within normal limits. There is no evidence of inflammatory changes, diverticular formation, polyps or neoplasms, vascular malformation, or any other abnormality. Moderate-sized internal hemorrhoids. The instrument was then withdrawn, the patient tolerated the procedure well and was transferred out of the Endoscopy Suite awake and in good condition to continue recovery under observation. Copies To: CC: RACHEL JACQUES MD, MORDO MD Aug 14, 2017 16:29
--- NOTE | 2017-08-14 16:30 | HPN ---
Date/Time of Note Date/Time of Note DATE: 08/14/17 TIME: 16:10 Interval H&P Admission Note Pt. seen H&P reviewed: No system changes RACHEL JACQUES MD Aug 14, 2017 16:30
[2017-08-15 02:29] VITALS: BP 113/71; RESP 18
[2017-08-15] MEDS: PANTOPRAZOLE (EC) 40 MG TAB PO SCH (05:17)
[2017-08-15] MEDS: METOCLOPRAMIDE 10 MG INJ IV SCH ×2 (05:17→12:34)
[2017-08-15] MEDS: SOD CHLORIDE 0.45% 1,000 ML IV SCH (05:18)
[2017-08-15 07:23] LABS: BASOPHILS % 0.5 % (0.0-2.0); EOSINOPHILS # 0.1 10^3/ul (0.0-0.5); EOSINOPHILS % 2.1 % (0.0-7.0); HEMATOCRIT 41.7 % (42.0-52.0); HEMOGLOBIN 13.7 g/dl (14.0-18.0); LYMPHOCYTES # 1.9 10^3/ul (0.8-2.9); MEAN CORPUSCULAR HGB CONC 32.9 g/dl (32.0-37.0); MEAN CORPUSCULAR VOLUME 82.2 fl (82.0-101.0); MEAN PLATELET VOLUME 9.8 fl (7.4-10.4); MONOCYTE # 0.5 10^3/ul (0.3-0.9); MONOCYTES % 8.4 % (0.0-11.0); NEUTROPHIL # 3.4 10^3/ul (1.6-7.5); NEUTROPHILS % 56.5 % (39.0-77.0); PLATELET COUNT 257 10^3/UL (140-415); RED BLOOD COUNT 5.07 10^6/ul (4.70-6.10); RED CELL DISTRIBUTION WIDTH 12.8 % (11.5-14.5); WHITE BLOOD COUNT 6.1 10^3/ul (4.8-10.8)
[2017-08-15 07:51] VITALS: BP 116/79; RESP 16
[2017-08-15 07:58] LABS: ALBUMIN 3.4 g/dl (3.3-4.9); ALBUMIN/GLOBULIN RATIO 1.09; BILIRUBIN,INDIRECT 0.2 mg/dl (0-1.1); BILIRUBIN,TOTAL 0.2 mg/dl (0.2-1.3); CALCIUM 9.2 mg/dl (8.4-10.2); CREATININE 0.7 mg/dl (0.61-1.24); TOTAL PROTEIN 6.5 g/dl (6.1-8.1)
[2017-08-15] MEDS: FISH OIL 1,000 MG CAP PO SCH ×2 (08:51→08:59)
[2017-08-15] MEDS: KETOCONAZOLE 2% 15 GM CR TOP SCH (08:52)
[2017-08-15] MEDS: SALMETEROL/FLUTICASONE 250/50 INHA INH SCH (08:52)
[2017-08-15] MEDS: LISINOPRIL 5 MG TAB PO SCH (08:52)
--- NOTE | 2017-08-15 12:15 | PDOCDIS ---
Discharge Instructions CONDITION Patient Condition: Stable HOME CARE INSTRUCTIONS: Special Diet: npo ACTIVITY: Activity Restrictions: Slowly Increase Activity FOLLOW UP/APPOINTMENTS Follow-up Plan 1. Follow up with GI for results of biopsies 2. Follow up with your primary care provider within 2 weeks 3. Stay away from dairy 4. Stay away from excessive fatty diet AARON STACY Aug 15, 2017 12:15
[2017-08-15] MEDS ORDERED: KET2CR15 TOP (12:18)
--- NOTE | 2017-08-15 13:10 | PN ---
Date/Time of Note Date/Time of Note DATE: 08/15/17 TIME: 13:08 Assessment/Plan VTE Prophylaxis VTE Prophylaxis Intervention: SCD's Lines/Catheters IV Catheter Type (from [facility]): Peripheral IV Urinary Cath still in place: No Assessment/Plan Chief Complaint/Hosp Course Assessment: Acute pancreatitis likely r/t hypertriglyceridemia Gastritis Chronic abdominal pain and diarrhea Colonoscopy 08/14/17 Impression: Normal colonic mucosa to cecum. Random biopsies obtained to rule out microscopic, lymphocytic or collagenous colitis. Normal terminal ileum. Random biopsies obtained. Moderate-sized internal hemorrhoids. Status post nasal septoplasty Hypertension Asthma Plan: D/c plan for today High fiber lactose-free diet Review pathology as out pt - f/u with GI 2 weeks either Screening colonoscopy at age 50 Patient seen in collaboration with Dr. Birch Subjective:: Course reviewed with nursing staff Patient interviewed and examined All labs, imaging and other results reviewed Patient is doing very well, discussed results of colonoscopy, pt now denies any pain. Noemi diet well, plan for d/c today PHYSICAL EXAMINATION: GENERAL: Well developed, well nourished, alert & oriented x 3, in no acute distress SKIN: No lesions, no stigmata chronic liver disease, no evidence of bleeding diathesis LYMPHATIC: No palpable lymphadenopathy. HEAD: Normocephalic, atraumatic, no tenderness. EYES: Pupils equal reactive to light and accommodation, full extraocular movements, sclera clear, non-icteric, no discharge. EARS/NOSE AND THROAT: Ears normal, nose normal, oropharynx normal, oral membranes well hydrated without lesions. NECK: Supple, no masses, thyroid normal, JVP within normal limits, carotids normal without bruits. CHEST: Inspection within normal limits. CARDIOVASCULAR: Heart: Regular rate and rhythm, no murmurs, gallops or rubs. Peripheral pulses present within normal limits, no cyanosis, clubbing or edemas. No pulsatile abdominal mass RESPIRATORY: Lungs clear to auscultation and percussion, no wheezing, no rubs GASTROINTESTINAL AND LIVER: Abdomen: Soft, obese , severe tenderness in left upper and lower quadrant, non-distended, no hernias, no masses, no organomegaly , no ascites, no rebound tenderness, normoactive bowel sounds. Rectal: Deferred. GENITOURINARY: [Male genitalia within normal limits. EXTREMITIES: No cyanosis, clubbing or edema. Problems: Exam/Review of Systems Vital Signs Vitals Vital Signs Date Time Temp Pulse Resp B/P Pulse Ox O2 Delivery O2 Flow Rate FiO2 08/15/17 07:51 98.0 57 16 116/79 97 08/14/17 16:52 Nasal Cannula 2.0 08/11/17 14:37 21 Intake and Output 08/14/17 08/14/17 08/15/17 15:00 23:00 07:00 Intake Total 200 ml 150 ml 1270 ml Balance 200 ml 150 ml 1270 ml Results Result Diagram: 08/15/17 0632 08/15/17 0631 Results 24 hrs Laboratory Tests Test 08/15/17 06:31 08/15/17 06:32 Sodium Level 142 Potassium Level 4.0 Chloride Level 106 Carbon Dioxide Level 27 Anion Gap 13 Blood Urea Nitrogen 8 Creatinine 0.70 Glucose Level 103 Calcium Level 9.2 Total Bilirubin 0.2 Direct Bilirubin 0.00 Indirect Bilirubin 0.2 Aspartate Amino Transf (AST/SGOT) 19 Alanine Aminotransferase (ALT/SGPT) 69 Alkaline Phosphatase 67 Total Protein 6.5 Albumin 3.4 Globulin 3.10 Albumin/Globulin Ratio 1.09 White Blood Count 6.1 Red Blood Count 5.07 Hemoglobin 13.7 L Hematocrit 41.7 L Mean Corpuscular Volume 82.2 Mean Corpuscular Hemoglobin 27.0 L Mean Corpuscular Hemoglobin Concent 32.9 Red Cell Distribution Width 12.8 Platelet Count 257 Mean Platelet Volume 9.8 Neutrophils % 56.5 Lymphocytes % 32.0 Monocytes % 8.4 Eosinophils % 2.1 Basophils % 0.5 Nucleated Red Blood Cells % 0.0 Neutrophils # 3.4 Lymphocytes # 1.9 Monocytes # 0.5 Eosinophils # 0.1 Basophils # 0.0 Nucleated Red Blood Cells # 0.0 Magnesium Level 2.0 Medications Medications Current Medications Ondansetron HCl (Zofran Inj) 4 mg Q6H PRN IV NAUSEA AND/OR VOMITING Last administered on 08/14/17t 10:02; Admin Dose 4 MG; Start 08/04/17 at 23:00 Acetaminophen (Tylenol Tab) 650 mg Q6H PRN PO PAIN LEVEL 1-3 OR FEVER; Start 08/04/17 at 23:00 Docusate Sodium (Colace) 100 mg Q12H PRN PO CONSTIPATION; Start 08/04/17 at 23 :00 Bisacodyl (Dulcolax) 5 mg DAILY PRN PO CONSTIPATION Last administered on 19:53; Admin Dose 5 MG; Start 08/04/17 at 23:00 Hydrochlorothiazide (Hydrochlorothiazide) 25 mg DAILY PO Last administered on 08/06/17 10:10; Admin Dose 25 MG; Start 08/05/17 at 09:00; Status Future Hold Lisinopril (Zestril) 5 mg DAILY PO Last administered on 08/15/17 08:52; Admin Dose 5 MG; Start 08/05/17 at 09:00 Fish Oil (Fish Oil) 2,000 mg BID PO Last administered on 08/12/17 20:19; Admin Dose 2,000 MG; Start 08/05/17 at 09:00 Salmeterol Xinafoate/ Fluticasone (Advair 250/50 Diskus) 1 inh BID INH Last administered on 08/15/17 08:52; Admin Dose 1 INH; Start 08/05/17 at 21:00 Hydralazine HCl (Apresoline) 10 mg Q6H PRN IV SBP >160; Start 08/06/17 at 12: 30 Metoclopramide HCl (Reglan) 10 mg Q6 IV Last administered on 08/15/17 12:34; Admin Dose 10 MG; Start 08/07/17 at 00:00 Hydromorphone HCl (Dilaudid) 1 mg Q3H PRN IV PAIN 7-10 Last administered on 07:53; Admin Dose 1 MG; Start 08/09/17 at 13:00 Morphine Sulfate (morphine) 2 mg Q4H PRN IV PAIN LEVEL 4-6; Start 08/09/17 at 13:00 Bisacodyl (Dulcolax Supp) 10 mg DAILY PRN [place] CONSTIPATION Last administered on 08/09/17 12:26; Admin Dose 10 MG; Start 08/09/17 at 11:30 Pantoprazole (Protonix Tab) 40 mg BID@06,18 PO Last administered on 08/15/17 05:17; Admin Dose 40 MG; Start 08/12/17 at 18:00 Simethicone 80 mg 80 mg QID PRN GTB DISTENSION/GAS/BLOATING; Start 08/12/17 at 10:30 Sodium Chloride (1/2 NS) 1,000 ml @ 75 mls/hr [id number] IV Last administered on 08/15/17 05:18; Admin Dose 75 MLS/HR; Start 08/13/17 at 14:30 Ketoconazole (Nizoral Cr) 1 applic BID TOP Last administered on 08/15/17 08:52 ; Admin Dose 1 APPLIC; Start 08/14/17 at 13:00 TAMMY MONSON Aug 15, 2017 13:10
[2017-08-15 14:03] VITALS: BP 112/75; RESP 16
--- NOTE | 2017-08-15 14:19 | DS ---
Date/Time of Note Date/Time of Note DATE: 08/15/17 TIME: 14:19 Discharge Summary Admission/Discharge Info Admit Date/Time Aug 04, 2017 at 20:52 Discharge Date/Time Patient Condition: Stable Hospital Course Patient is a 32-year-old male who originally presented with abdominal pain and resultant pancreatitis. Patient was seen by GI during the stay and underwent MRI to show an inflamed area of the pancreas. Patient was treated with IV fluids and pain control and eventually the pain subsided and patient was able to tolerate p.o. during the stay GI also performed colonoscopy which did not find any acute disease however did recommend a lactose-free diet and repeat colonoscopy at age 50. Patient will be discharged to follow-up with his neurosurgeon as well as GI within 2-3 weeks for biopsy results. Patient understands and will follow up with his primary care provider and GI. Home Meds Active Scripts Ketoconazole* (Ketoconazole* 2% Cream (15gm)) 1 Applic Cr, 1 APPLIC TOP BID for 30 Days, #45 GM Prov:AARON STACY 08/15/17 Reported Medications Omeprazole* (Omeprazole*) 40 Mg Capsule.dr, 40 MG PO DAILY, #30 CAP 08/04/17 Lisinopril* (Lisinopril*) 5 Mg Tablet, 5 MG PO DAILY, #30 TAB 08/04/17 Hydrochlorothiazide* (Hydrochlorothiazide*) 25 Mg Tab, 25 MG PO DAILY, #30 TAB 08/04/17 Colon-3 Acid Ethyl Esters (Lovaza) 1 Gm Capsule, 2 GM PO BID, CAP 08/04/17 Ranitidine Hcl* (Ranitidine Hcl*) 150 Mg Tablet, 150 MG PO Q12, #60 TAB 08/04/17 Fluticasone-Vilanterol (Breo Ellipta Inhaler) 100-25 Mcg/Actuation Aer.pow.ba, 1 PUFF INHALATION DAILY, #1 INHALER 08/04/17 Follow-up Plan 1. Follow up with GI for results of biopsies 2. Follow up with your primary care provider within 2 weeks 3. Stay away from dairy 4. Stay away from excessive fatty diet Primary Care Provider Vaishali Randle Pending Labs Laboratory Tests Test 08/15/17 06:31 08/15/17 06:32 Sodium Level 142mmol/L (135-144) Potassium Level 4.0mmol/L (3.5-5.1) Chloride Level 106mmol/L (97-110) Carbon Dioxide Level 27mmol/L (21-31) Anion Gap 13 (8-16) Blood Urea Nitrogen 8mg/dl (7-20) Creatinine 0.70mg/dl (0.61-1.24) Glucose Level 103mg/dl (70-220) Calcium Level 9.2mg/dl (8.4-10.2) Total Bilirubin 0.2mg/dl (0.2-1.3) Direct Bilirubin 0.00mg/dl (0.00-0.20) Indirect Bilirubin 0.2mg/dl (0-1.1) Aspartate Amino Transf (AST/SGOT) 19IU/L (15-46) Alanine Aminotransferase (ALT/SGPT) 69IU/L (13-69) Alkaline Phosphatase 67IU/L (42-121) Total Protein 6.5g/dl (6.1-8.1) Albumin 3.4g/dl (3.3-4.9) Globulin 3.10g/dl (1.3-3.2) Albumin/Globulin Ratio 1.09 White Blood Count 6.110^3/ul (4.8-10.8) Red Blood Count 5.0710^6/ul (4.70-6.10) Hemoglobin 13.7g/dl (14.0-18.0) Hematocrit 41.7% (42.0-52.0) Mean Corpuscular Volume 82.2fl (82.0-101.0) Mean Corpuscular Hemoglobin 27.0pg (29.0-33.0) Mean Corpuscular Hemoglobin Concent 32.9g/dl (32.0-37.0) Red Cell Distribution Width 12.8% (11.5-14.5) Platelet Count 64971^3/UL (140-415) Mean Platelet Volume 9.8fl (7.4-10.4) Neutrophils % 56.5% (39.0-77.0) Lymphocytes % 32.0% (15.0-51.0) Monocytes % 8.4% (0.0-11.0) Eosinophils % 2.1% (0.0-7.0) Basophils % 0.5% (0.0-2.0) Nucleated Red Blood Cells % 0.0/100WBC (0.0-0.0) Neutrophils # 3.410^3/ul (1.6-7.5) Lymphocytes # 1.910^3/ul (0.8-2.9) Monocytes # 0.510^3/ul (0.3-0.9) Eosinophils # 0.110^3/ul (0.0-0.5) Basophils # 0.010^3/ul (0.0-0.1) Nucleated Red Blood Cells # 0.010^3/ul (0.0-0.0) Magnesium Level 2.0mg/dl (1.7-2.5) AARON STACY Aug 15, 2017 14:19
== END 2017-08-15 16:20 | disposition home or self-care (01) | DRG 438 ==
LOC: E/R 17:51 → PP2 20:52
PROVIDERS: ADMIT Family Medicine; ATTEND Family Medicine
PROC: 0DBG8ZX Excision of Left Large Intestine, Via Natural or Artificial Opening Endoscopic, Diagnostic (ICD-10-PCS; 2017-08-14)
PROC: 0DBB8ZX Excision of Ileum, Via Natural or Artificial Opening Endoscopic, Diagnostic (ICD-10-PCS; 2017-08-14)
PROC: 0DBF8ZX Excision of Right Large Intestine, Via Natural or Artificial Opening Endoscopic, Diagnostic (ICD-10-PCS; principal; 2017-08-14 18:00)
DX: K85.80 Other acute pancreatitis without necrosis or infection (principal); K83.1 Obstruction of bile duct; G89.29 Other chronic pain; K64.8 Other hemorrhoids; Z98.890 Other specified postprocedural states; K59.00 Constipation, unspecified; K29.70 Gastritis, unspecified, without bleeding; J45.909 Unspecified asthma, uncomplicated; I10 Essential (primary) hypertension; E78.1 Pure hyperglyceridemia; Z87.891 Personal history of nicotine dependence
CPT/HCPCS: 36415; 74176; 74177; 74181; 80048; 80053; 80061; 80076; 81003; 83036; 83690; 83735; 84100; 84443; 85025; 88305; 94664; 96374; 96375; 96376; C9113; J0744; J1170; J2250; J2270; J2405; J2765; J3475; J7030; J7042; Q9967